=== PATIENT | male | born 1955 | race Caucasian/White ===

== ENCOUNTER 2016-12-13 13:25 | Inpatient (IN) | payer BC, OTHER ==
--- NOTE | 2016-12-13 14:44 | EDM.PDOC ---
[id number] Complaint: CAN'T KEEP ANYTHING DOWN Time Seen by Provider: 12/13/16 14:15 Source of Information: Reports: Patient, Family History Limitations: Reports: No limitations - History of Present Illness INITIAL COMMENTS - FREE TEXT/NARRATIVE: 61-year-old male with metastatic cancer who was over at the infusion Center receiving IV fluids and medications for nausea but wasn't responding well so they sent him over to the emergency room. He has persistent nausea, slight abdominal distention and feels weak. He also has decreased urinary output. No significant abdominal pain Onset: unknown/unsure (Over the past several days) Location: Reports: abdomen Severity: moderate Associated Symptoms: Reports: malaise, nausea/vomiting, weakness. Denies: cough - Related Data Allergies Allergy/AdvReac Type Severity Reaction Status Date / Time No Known Allergies Allergy Verified 12/13/16 14:14 Home Meds: Home Meds Acetaminophen/oxyCODONE [Percocet 325-5 MG] 1 tab PO Q4H PRN 12/13/16 [History] Dexamethasone 1 tab PO QID 12/13/16 [History] Docusate Sodium [Colace] 100 mg PO BID 12/13/16 [History] Dronabinol [Marinol] 2.5 mg PO BIDAC 12/13/16 [History] Omeprazole 1 tab PO BEDTIME 12/13/16 [History] Ondansetron [Zofran Odt] 1 tab PO Q8H PRN 12/13/16 [History] Prochlorperazine Maleate [Compazine] 1 tab PO Q6H PRN 12/13/16 [History] guaiFENesin 5 ml PO Q4H PRN 12/13/16 [History] guaiFENesin/Codeine Phosphate [Guaifenesin AC Cough Syrup] 5 ml PO TID PRN 12/13 [History] Past Medical History HEENT History: Reports: Hard of hearing, Impaired vision Respiratory History: Reports: Other (see below) Other Respiratory History: lung cancer Gastrointestinal History: Reports: PUD Oncologic (Cancer) History: Reports: Lung, Metastatic - Past Surgical History HEENT Surgical History: Reports: Tonsillectomy, Other (see below) Other HEENT Surgeries/Procedures: ear operation for hearing GI Surgical History: Reports: Other (see below) Other GI Surgeries/Procedures: perforated ulcers Social & Family History - Tobacco Use Smoking Status *Q: Former Smoker - Recreational Drug Use Recreational Drug Use: No ED ROS GENERAL - Review of Systems Review Of Systems: See Below Constitutional: Denies: fever, chills HEENT: Reports: No symptoms Respiratory: Denies: Shortness of Breath Cardiovascular: Denies: Chest pain GI/Abdominal: Reports: Nausea, Vomiting : Reports: other (Decreased urinary frequency) Skin: Reports: no symptoms Neurological: Reports: No Symptoms Psychiatric: Reports: No symptoms ED EXAM, GENERAL - Physical Exam Exam: See Below Exam Limited By: No limitations General Appearance: alert, no apparent distress (No distress but looks uncomfortable) Eye Exam: bilateral eye: EOMI Respiratory/Chest: no respiratory distress, lungs clear Cardiovascular: regular rate, rhythm GI/Abdominal: tender (Minimal tenderness to palpation but somewhat distended and firm), abnormal bowel sounds: (Decreased bowel sounds) Extremities: No: pedal edema Neurological: alert, oriented Psychiatric: normal affect, normal mood Skin Exam: Warm, Dry Course - Vital Signs Last Recorded V/S: Last Vital Signs Temp 97.8 F 12/14/16 01:33 Pulse 86 12/14/16 01:33 Resp 16 12/14/16 01:33 BP 115/86 12/14/16 01:33 Pulse Ox 96 12/14/16 01:33 - Orders/Labs/Meds Orders: Active Orders 24 hr Category Date Time Status Abdomen 2V AP Flat Upright [CR] Stat Exams 12/13/16 14:45 Taken Abdomen Pelvis wo Cont [CT] Stat Exams 12/13/16 17:17 Taken Medication Orders Albuterol (Proventil Neb Soln) 2.5 mg NEB Q4H PRN PRN Reason: Shortness Of Breath/wheezing Dexamethasone (Dexamethasone) 4 mg IVPUSH Q6H [facility] Last Admin: 12/14/16 01:23 Dose: 4 mg Admin: 12/13/16 21:14 Dose: 4 mg Enoxaparin Sodium (Lovenox) 40 mg SUBCUT DAILY [facility] Last Admin: 12/13/16 21:15 Dose: 40 mg Hydromorphone HCl (Dilaudid) 0.5 mg IVPUSH Q2H PRN PRN Reason: Pain Lactated Ringer's (Ringers, Lactated) 1,000 mls @ 125 mls/hr IV ASDIRECTED [facility] Last Admin: 12/13/16 19:45 Dose: 125 mls/hr Ondansetron HCl (Zofran) 4 mg IV Q4H PRN PRN Reason: Nausea/Vomiting Pantoprazole Sodium (Protonix Iv) 40 mg IVPUSH DAILY [facility] Last Admin: 12/13/16 21:11 Dose: 40 mg Phenol (Phenaseptic Liquid) 0 ml PO Q1H PRN PRN Reason: Sore Throat Sodium Chloride (Saline Flush) 10 ml FLUSH ASDIRECTED PRN PRN Reason: Keep Vein Open Labs: Laboratory Tests 12/13/16 12/13/16 Range/Units 14:45 14:45 WBC 15.2 H (4.5-11.0) K/uL RBC 5.51 (4.30-5.90) M/uL Hgb 13.9 (12.0-15.0) g/dL Hct 42.8 (40.0-54.0) % MCV 78 L (80-98) fL MCH 25 L (27-31) pg MCHC 33 (32-36) % Plt Count 335 (150-400) K/uL Neut % (Auto) 93 H (36-66) % Lymph % (Auto) 4 L (24-44) % [place] % (Auto) 3 (2-6) % Eos % (Auto) 0 L (2-4) % Baso % (Auto) 0 (0-1) % Sodium 136 L (140-148) mmol/L Potassium 4.0 (3.6-5.2) mmol/L Chloride 95 L (100-108) mmol/L Carbon Dioxide 31 (21-32) mmol/L Anion Gap 14.0 (5.0-14.0) mmol/L BUN 39 H (7-18) mg/dL Creatinine 1.4 H (0.8-1.3) mg/dL Est Cr Clr Drug Dosing 51.54 mL/min Estimated GFR (MDRD) 51 L (>60) Glucose 124 H (74-106) mg/dL Calcium 8.5 (8.5-10.1) mg/dL Total Bilirubin 0.8 (0.2-1.0) mg/dL AST 35 (15-37) U/L ALT 58 (12-78) U/L Alkaline Phosphatase 81 (46-116) U/L Total Protein 6.6 (6.4-8.2) g/dL Albumin 3.1 L (3.4-5.0) g/dL Globulin 3.5 (2.3-3.5) g/dL Albumin/Globulin Ratio 0.9 L (1.2-2.2) Meds: Medications Generic Name Dose Route Start Last Admin Trade Name Freq PRN Reason Stop Dose Admin Albuterol 2.5 mg 12/13/16 19:08 Proventil Neb Soln NEB Q4H PRN Shortness Of Breath/wheezing Dexamethasone 4 mg 12/13/16 19:08 12/14/16 01:23 Dexamethasone IVPUSH 4 mg Q6H [facility] Administration Enoxaparin Sodium 40 mg 12/13/16 19:08 12/13/16 21:15 Lovenox SUBCUT 40 mg DAILY [facility] Administration Hydromorphone HCl 0.5 mg 12/13/16 19:08 Dilaudid IVPUSH Q2H PRN Pain Lactated Ringer's 1,000 mls @ 125 mls/hr 12/13/16 19:08 12/13/16 19:45 Ringers, Lactated IV 125 mls/hr ASDIRECTED [facility] Administration Ondansetron HCl 4 mg 12/13/16 19:08 Zofran IV Q4H PRN Nausea/Vomiting Pantoprazole Sodium 40 mg 12/13/16 19:08 12/13/16 21:11 Protonix Iv IVPUSH 40 mg DAILY [facility] Administration Phenol 0 ml 12/13/16 20:09 Phenaseptic Liquid PO Q1H PRN Sore Throat Sodium Chloride 10 ml 12/13/16 19:08 Saline Flush FLUSH ASDIRECTED PRN Keep Vein Open - Re-Assessments/Exams Free Text/Narrative Re-Assessment/Exam: 12/13/16 15:44 A flat and upper abdominal x-ray was obtained which showed bowel obstruction. Hemoglobin was normal, white count 15.2. Discussed with the patient that he needs an NG tube and hospitalization and the family requested a [facility] so [place] was contacted. 12/13/16 17:18 [facility] does not except inpatient patients other than psychiatric and rehabilitation. [facility] was consulted and they are full and not accepting patients. The patient preferred to be admitted here rather than go all the way down to [facility]. I discussed his case with Dr. Hayes, and abdominal CT without contrast was ordered and an NG tube will be placed when he returns from CT. 12/13/16 18:28 CT confirmed a small bowel obstruction with a transition point in the right lower quadrant. There is evidence of metastatic disease in the abdomen which may be involved in the obstruction. The NG was placed without difficulty and the hospitalist was consulted for admission. Departure - Departure Time of Disposition: 19:12 Disposition: Admitted As Inpatient 65 Condition: poor Clinical Impression: Vomiting, Small bowel obstruction, Metastatic cancer to brain - My Orders Last 24 Hours: My Active Orders 12/13/16 14:45 Abdomen 2V AP Flat Upright [CR] Stat 12/13/16 17:17 Abdomen Pelvis wo Cont [CT] Stat - Assessment/Plan Last 24 Hours: My Active Orders 12/13/16 14:45 Abdomen 2V AP Flat Upright [CR] Stat 12/13/16 17:17 Abdomen Pelvis wo Cont [CT] Stat
--- NOTE | 2016-12-13 19:04 | PCM.HP ---
H&P History of Present Illness - General Date of Service: 12/13/16 Admit Problem/Dx: Admission Diagnosis/Problem Admission Diagnosis/Problem Small bowel obstruction Source of Information: Patient, Family, Provider, RN notes reviewed History Limitations: Reports: No limitations - History of Present Illness Initial Comments - Free Text/Narative: This patient is a 61-year-old gentleman was admitted through the emergency department for management of a mechanical bowel obstruction. 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 He has received radiation to his brain as well as recent chemotherapy. Over the last 3-4 days his developed persistent nausea and vomiting with negligible oral intake. He was seen and evaluated in the emergency department today, x-ray of the abdomen shows evidence of a bowel obstruction. CT scan of the abdomen has been obtained but formal report is pending at this time. - Related Data Allergies/Adverse Reactions: Allergies Allergy/AdvReac Type Severity Reaction Status Date / Time No Known Allergies Allergy Verified 12/13/16 14:14 Home Medications: Home Meds Acetaminophen/oxyCODONE [Percocet 325-5 MG] 1 tab PO Q4H PRN 12/13/16 [History] Dexamethasone 1 tab PO QID 12/13/16 [History] Docusate Sodium [Colace] 100 mg PO BID 12/13/16 [History] Dronabinol [Marinol] 2.5 mg PO BIDAC 12/13/16 [History] Omeprazole 1 tab PO BEDTIME 12/13/16 [History] Ondansetron [Zofran Odt] 1 tab PO Q8H PRN 12/13/16 [History] Prochlorperazine Maleate [Compazine] 1 tab PO Q6H PRN 12/13/16 [History] guaiFENesin 5 ml PO Q4H PRN 12/13/16 [History] guaiFENesin/Codeine Phosphate [Guaifenesin AC Cough Syrup] 5 ml PO TID PRN 12/13 [History] Past Medical History HEENT History: Reports: Hard of hearing, Impaired vision Respiratory History: Reports: Other (see below) Other Respiratory History: lung cancer Gastrointestinal History: Reports: PUD Oncologic (Cancer) History: Reports: Lung, Metastatic - Past Surgical History HEENT Surgical History: Reports: Tonsillectomy, Other (see below) Other HEENT Surgeries/Procedures: ear operation for hearing GI Surgical History: Reports: Other (see below) Other GI Surgeries/Procedures: perforated ulcers Social & Family History - Tobacco Use Smoking Status *Q: Former Smoker - Recreational Drug Use Recreational Drug Use: No H&P Review of Systems - Review of Systems: Review Of Systems: See Below General: Reports: weakness, decreased appetite. Denies: fever, chills, night sweats, diaphoresis HEENT: Reports: no symptoms Pulmonary: Reports: No Symptoms Cardiovascular: Reports: no symptoms Gastrointestinal: Reports: Abdominal pain, Distension, Nausea, Vomiting. Denies : Black stool, Bloody stool, Constipation, Diarrhea, Difficulty swallowing Genitourinary: Reports: no symptoms Musculoskeletal: Reports: no symptoms Skin: Reports: no symptoms Psychiatric: Reports: no symptoms Neurological: Reports: No Symptoms Hematologic/Lymphatic: Reports: no symptoms Immunologic: Reports: no symptoms Exam - Exam Exam: See Below - Vital Signs Vital Signs: Last Vital Signs Temp 97.9 F 12/13/16 16:09 Pulse 93 12/13/16 16:09 Resp 16 12/13/16 16:09 BP 132/88 12/13/16 16:09 Pulse Ox 95 12/13/16 16:09 Weight: 146 lb 13.246 oz - Exam Quality Assessment: DVT prophylaxis General: alert, oriented, cooperative, mild distress HEENT: Conjunctiva clear, Nares patent, Normal nasal septum, Posterior pharynx clear, Pupils equal, Pupils reactive. No: Hearing intact, Mucosa moist & pink Neck: supple, trachea midline, +2 carotid pulse wo bruit Lungs: Clear to auscultation, Normal respiratory effort, Decreased breath sounds Cardiovascular: regular rate, regular rhythm, normal S1, normal S2. No: irregular rhythm, bradycardia, tachycardia, systolic murmur, diastolic murmur Abdomen: soft, distention, tenderness, hypoactive bowel sounds. No: guarding, rigidity, rebound Back Exam: normal inspection, full range of motion, NT Extremities: 3, normal inspection, 10 Skin: warm, dry, intact Neurological: cranial nerves intact, strength equal bilateral, normal speech, normal tone, sensation intact. No: focal deficit Neuro Extensive - Mental Status: alert, oriented x3, normal mood/affect, normal cognition, memory intact - Patient Data Lab Results last 24 hrs: Laboratory Results - last 24 hr 12/13/16 12/13/16 Range/Units 14:45 14:45 WBC 15.2 H (4.5-11.0) K/uL RBC 5.51 (4.30-5.90) M/uL Hgb 13.9 (12.0-15.0) g/dL Hct 42.8 (40.0-54.0) % MCV 78 L (80-98) fL MCH 25 L (27-31) pg MCHC 33 (32-36) % Plt Count 335 (150-400) K/uL Neut % (Auto) 93 H (36-66) % Lymph % (Auto) 4 L (24-44) % [place] % (Auto) 3 (2-6) % Eos % (Auto) 0 L (2-4) % Baso % (Auto) 0 (0-1) % Sodium 136 L (140-148) mmol/L Potassium 4.0 (3.6-5.2) mmol/L Chloride 95 L (100-108) mmol/L Carbon Dioxide 31 (21-32) mmol/L Anion Gap 14.0 (5.0-14.0) mmol/L BUN 39 H (7-18) mg/dL Creatinine 1.4 H (0.8-1.3) mg/dL Est Cr Clr Drug Dosing 51.54 mL/min Estimated GFR (MDRD) 51 L (>60) Glucose 124 H (74-106) mg/dL Calcium 8.5 (8.5-10.1) mg/dL Total Bilirubin 0.8 (0.2-1.0) mg/dL AST 35 (15-37) U/L ALT 58 (12-78) U/L Alkaline Phosphatase 81 (46-116) U/L Total Protein 6.6 (6.4-8.2) g/dL Albumin 3.1 L (3.4-5.0) g/dL Globulin 3.5 (2.3-3.5) g/dL Albumin/Globulin Ratio 0.9 L (1.2-2.2) Result Diagrams: 12/13/16 14:45 12/13/16 14:45 *Q Meaningful Use (ADM) - VTE *Q VTE Criteria *Q: - VTE Risk Assess *Q Each Risk Factor Represents 1 Point: Abnormal Pulmonary Function (COPD) Total Score 1 Point Risk Factors: 1 Each Risk Factor Represents 2 Points: Age 60 - 74 Years Total Score 2 Point Risk Factors: 2 Each Risk Factor Represents 3 Points: Present Cancer or Chemotherapy Total Score 3 Point Risk Factors: 3 Each Risk Factor Represents 5 Points: None Total Score 5 Point Risk Factors: 0 Venous Thromboembolism Risk Factor Score *Q: 6 - Stroke *Q Stroke Criteria *Q: - AMI *Q AMI Criteria *Q: Problem List Initiated/Reviewed/Updated: Yes Orders Last 24hrs: Active Orders 24 hr Category Date Time Status Patient Status Manage Transfer [TRANSFER] Routine ADT 12/13/16 18:48 Active Gastrointestinal Tube Mgmt [RC] ASDIRECTED Care 12/13/16 17:46 Active Abdomen 2V AP Flat Upright [CR] Stat Exams 12/13/16 14:45 Taken Abdomen Pelvis wo Cont [CT] Stat Exams 12/13/16 17:17 Taken NG [Nasogastric Orogastric Tube Insertion] [OM.PC] Oth 12/13/16 17:45 Ordered Routine Resuscitation Status Routine Resus Stat 12/13/16 18:53 Ordered Assessment/Plan Comment:: ASSESSMENT AND PLAN MECHANICAL BOWEL OBSTRUCTION-onset of symptoms over the past 3-4 days. X-ray shows evidence of bowel obstruction, CT scan results are pending. History of perforated ulcer requiring surgical intervention 5 years ago. -N.p.o. -IV fluids for hydration -NG tube to low intermittent suction -Abdominal flat plate and upright in a.m. -consult Dr. Armenta in a.m. for surgical followup METASTATIC SQUAMOUS CELL CARCINOMA-specific origin of the malignancy unknown although presumed to be lung. He has receiving brain radiation for known metastatic disease to the brain, currently receiving chemotherapy. -Decadron IV to replace oral medication PROBABLE COPD-no formal diagnosis, examination is consistent with this. He has an at least 80 pack year smoking history. -Supplemental oxygen as needed -Albuterol nebs as needed MAINTENANCE ISSUES -DVT prophylaxis; Lovenox 40 mg subcutaneous daily -GI prophylaxis; Protonix 40 mg IV daily -Burks catheter; not indicated -Nutrition; n.p.o. -Nicotine dependence; not required CODE STATUS-FULL CODE ADMISSION STATUS-patient will be admitted to inpatient status, expect at least a 2 night hospital stay for evaluation and management of problems as outlined above. At the time of this admission I do not reasonably expected evaluation and management of this problem will require more than a 96 hour hospital stay. DISPOSITION-anticipate discharge to home after the hospital stay. PRIMARY CARE PROVIDER-[facility]
[2016-12-13] MEDS ORDERED: HYDROmorphone 0.5 MG/0.5 ML Syringe IVPUSH PRN (19:08)
[2016-12-13] MEDS ORDERED: Ondansetron 4 MG/2 ML SDV IV PRN (19:08)
[2016-12-13] MEDS ORDERED: Albuterol 0.083% 2.5 MG/3 ML Neb Soln NEB PRN (19:08)
[2016-12-13] MEDS ORDERED: Sodium Chloride 0.9% 10 ML Syringe FLUSH PRN (19:08)
[2016-12-13] MEDS: Lactated Ringers 1,000 ML IV SCH (19:45)
[2016-12-13] MEDS ORDERED: Phenol/Sodium Phenolate Mouthwash 180 ML Bottle PO PRN (20:09)
[2016-12-13] MEDS: Pantoprazole 40 MG Vial IVPUSH SCH (21:11)
[2016-12-13] MEDS: Dexamethasone 4 MG/ML SDV IVPUSH SCH (21:14)
[2016-12-13] MEDS: Enoxaparin 40 MG/0.4 ML Syringe SUBCUT SCH (21:15)
[2016-12-14] MEDS: Dexamethasone 4 MG/ML SDV IVPUSH SCH ×4 (01:23→20:53)
[2016-12-14] MEDS: Pantoprazole 40 MG Vial IVPUSH SCH (09:15)
[2016-12-14] MEDS ORDERED: Lactated Ringers 1,000 ML IV SCH (09:15)
[2016-12-14] MEDS: Enoxaparin 40 MG/0.4 ML Syringe SUBCUT SCH (09:15)
[2016-12-14] MEDS ORDERED: Naloxone 0.4 MG/ML SDV IV PRN (14:07)
--- NOTE | 2016-12-14 15:48 | PCM.PN ---
- General Info Date of Service: 12/14/16 Functional Status: Reports: pain controlled, urinating - Review of Systems General: Denies: Fever, Chills Pulmonary: Reports: no symptoms Cardiovascular: Reports: No Symptoms Gastrointestinal: Reports: Flatus. Denies: Abdominal pain, Difficulty swallowing, Nausea, Vomiting Systems Review Comment:: This patient has been stable since admission, denies abdominal pain, nausea or vomiting. Vital signs have been stable and he has remained afebrile. He is passing a small amount of gas but has not had a bowel movement, NG output remains fairly high. He has been seen and evaluated by Dr. Armenta. - Patient Data Vitals - most recent: Last Vital Signs Temp 97.5 F 12/14/16 11:58 Pulse 81 12/14/16 11:58 Resp 18 12/14/16 11:58 BP 123/83 12/14/16 11:58 Pulse Ox 95 12/14/16 11:58 Weight - most recent: 146 lb 13.246 oz I&O - last 24 hours: Intake & Output 12/14/16 12/14/16 12/14/16 06:59 14:59 22:59 Intake Total 1201 Output Total 200 Balance 1001 Lab Results last 24 hrs: Laboratory Results - last 24 hr 12/14/16 12/14/16 Range/Units 05:56 05:56 WBC 13.9 H (4.5-11.0) K/uL RBC 4.71 (4.30-5.90) M/uL Hgb 11.7 L D (12.0-15.0) g/dL Hct 37.2 L (40.0-54.0) % MCV 79 L (80-98) fL MCH 25 L (27-31) pg MCHC 32 (32-36) % Plt Count 268 (150-400) K/uL Neut % (Auto) 93 H (36-66) % Lymph % (Auto) 4 L (24-44) % [place] % (Auto) 4 (2-6) % Eos % (Auto) 0 L (2-4) % Baso % (Auto) 0 (0-1) % Sodium 139 L (140-148) mmol/L Potassium 3.9 (3.6-5.2) mmol/L Chloride 99 L (100-108) mmol/L Carbon Dioxide 31 (21-32) mmol/L Anion Gap 12.9 (5.0-14.0) mmol/L BUN 38 H (7-18) mg/dL Creatinine 1.3 (0.8-1.3) mg/dL Est Cr Clr Drug Dosing 55.50 mL/min Estimated GFR (MDRD) 56 L (>60) Glucose 106 (74-106) mg/dL Calcium 7.5 L (8.5-10.1) mg/dL Magnesium 2.2 (1.8-2.4) mg/dL Med Orders - Current: Current Medications Albuterol (Proventil Neb Soln) 2.5 mg NEB Q4H PRN PRN Reason: Shortness Of Breath/wheezing Dexamethasone (Dexamethasone) 4 mg IVPUSH Q6H [facility] Last Admin: 12/14/16 14:51 Dose: 4 mg Enoxaparin Sodium (Lovenox) 40 mg SUBCUT DAILY [facility] Last Admin: 12/14/16 09:15 Dose: 40 mg Hydromorphone HCl (Dilaudid [employer] 15 Mg In Ns 30 Ml) 0 mg IV ASDIRECTED PRN; Protocol 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 Lactated Ringer's (Ringers, Lactated) 1,000 mls @ 125 mls/hr IV ASDIRECTED [facility] Last Admin: 12/13/16 19:45 Dose: 125 mls/hr Naloxone HCl (Narcan) 0.1 mg IV ASDIRECTED PRN PRN Reason: decreased respiratory rate Ondansetron HCl (Zofran) 4 mg IV Q4H PRN PRN Reason: Nausea/Vomiting Pantoprazole Sodium (Protonix Iv) 40 mg IVPUSH DAILY [facility] Last Admin: 12/14/16 09:15 Dose: 40 mg Phenol (Phenaseptic Liquid) 0 ml PO Q1H PRN PRN Reason: Sore Throat Sodium Chloride (Saline Flush) 10 ml FLUSH ASDIRECTED PRN PRN Reason: Keep Vein Open Discontinued Medications Lactated Ringer's (Ringers, Lactated) 1,000 mls @ 333 mls/hr IV ASDIRECTED [facility] Stop: 12/14/16 12:16 Last Admin: 12/14/16 09:25 Dose: 333 mls/hr - Exam Quality Assessment: DVT prophylaxis General: alert, oriented, cooperative, no acute distress Lungs: Clear to auscultation, Normal respiratory effort Cardiovascular: Regular Rate, Regular Rhythm, No Murmurs Abdomen: soft, no distension, abnormal bowel sounds. No: rigidity, rebound, guarding, tenderness Extremities: no edema Skin: warm, dry, intact - Problem List Review Problem List Initiated/Reviewed/Updated: Yes - My Orders Last 24 Hours: My Active Orders 12/13/16 18:53 Resuscitation Status Routine 12/13/16 19:08 Patient Status [ADT] Routine Gastrointestinal Tube Mgmt [RC] ASDIRECTED Intake and Output [RC] QSHIFT Notify Provider Consults [RC] ASDIRECTED Notify Provider Vital Signs [RC] ASDIRECTED Oxygen Therapy [RC] PRN RT Aerosol Therapy [RC] ASDIRECTED Up With Assistance [RC] ASDIRECTED VTE/DVT Education [RC] Per Unit Routine Vital Signs [RC] Q4H Consult to Physician [CONS] Routine Albuterol [Proventil Neb Soln] 2.5 mg NEB Q4H PRN Dexamethasone 4 mg IVPUSH Q6H Enoxaparin [Lovenox] 40 mg SUBCUT DAILY Lactated Ringers [Ringers, Lactated] 1,000 ml IV ASDIRECTED Ondansetron [Zofran] 4 mg IV Q4H PRN Pantoprazole [Protonix IV] 40 mg IVPUSH DAILY Sodium Chloride 0.9% [Saline Flush] 10 ml FLUSH ASDIRECTED PRN Peripheral IV Insertion Adult [OM.PC] Routine 12/13/16 20:09 Phenol/Sodium Phenolate [Phenaseptic Liquid] 0 ml PO Q1H PRN 12/13/16 Dinner Nothing per Oral Now Diet [DIET] 12/14/16 05:00 Abdomen 2V AP Flat Upright [CR] Routine - Plan Plan:: ASSESSMENT AND PLAN MECHANICAL BOWEL OBSTRUCTION-onset of symptoms over the past 3-4 days. X-ray shows evidence of bowel obstruction. History of perforated ulcer requiring surgical intervention 5 years ago. Stable and asymptomatic since admission with current management. -N.p.o. -IV fluids for hydration -NG tube to low intermittent suction -Abdominal flat plate and upright in a.m. -Surgical followup per Dr. 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 He has receiving brain radiation for known metastatic disease to the brain, currently receiving chemotherapy. -Decadron IV to replace oral medication PROBABLE COPD-no formal diagnosis, examination is consistent with this. He has an at least 80 pack year smoking history. -Supplemental oxygen as needed -Albuterol nebs as needed MAINTENANCE ISSUES -DVT prophylaxis; Lovenox 40 mg subcutaneous daily -GI prophylaxis; Protonix 40 mg IV daily -Burks catheter; not indicated -Nutrition; n.p.o. -Nicotine dependence; not required CODE STATUS-FULL CODE ADMISSION STATUS-patient will be admitted to inpatient status, expect at least a 2 night hospital stay for evaluation and management of problems as outlined above. At the time of this admission I do not reasonably expected evaluation and management of this problem will require more than a 96 hour hospital stay. DISPOSITION-anticipate discharge to home after the hospital stay. PRIMARY CARE PROVIDER-[facility]
[2016-12-14] MEDS: Lactated Ringers 1,000 ML IV SCH (23:35)
[2016-12-15] MEDS: Dexamethasone 4 MG/ML SDV IVPUSH SCH ×4 (02:01→19:53)
[2016-12-15] MEDS: Lactated Ringers 1,000 ML IV SCH (07:46)
[2016-12-15] MEDS ORDERED: Midazolam 1 MG/ML 2 ML SDV ONE (08:51)
[2016-12-15] MEDS ORDERED: fentaNYL 250 MCG/5 ML SDV ONE (08:51)
[2016-12-15] MEDS: HYDROmorphone/Normal Saline 15 MG/30 ML PCA IV PRN (08:52)
[2016-12-15] MEDS ORDERED: Succinylcholine/Normal Saline 200 MG/10 ML Syringe ONE ×2 (08:52→11:09)
[2016-12-15] MEDS ORDERED: Rocuronium 50 MG/5 ML Vial ONE (08:52)
[2016-12-15] MEDS ORDERED: Ondansetron 4 MG/2 ML SDV ONE (08:52)
[2016-12-15] MEDS ORDERED: Neostigmine Methylsulfate 1 MG/ML 5 ML Syringe ONE (08:52)
[2016-12-15] MEDS ORDERED: Propofol 200 MG/20 ML SDV ONE (08:52)
[2016-12-15] MEDS ORDERED: Dexamethasone 4 MG/ML SDV ONE (08:52)
[2016-12-15] MEDS ORDERED: methylPREDNISolone Sodium Succinate 125 MG/2 ML SDV IVPUSH ONE (09:00)
[2016-12-15] MEDS ORDERED: cefOXitin 2 GM in Sodium Chloride 0.9% 50 ML IV ONE (09:00)
[2016-12-15] MEDS ORDERED: Lactated Ringers 1,000 ML ONE (09:14)
[2016-12-15] MEDS ORDERED: Ketamine 500 MG/5 ML MDV ONE (10:09)
[2016-12-15] MEDS: fentaNYL 25 MCG/HR Transdermal Patch TRDERM SCH (10:33)
[2016-12-15] MEDS ORDERED: Meropenem 500 MG SDV ONE (10:50)
[2016-12-15] MEDS ORDERED: fentaNYL 100 MCG/2 ML SDV ONE (11:07)
[2016-12-15] MEDS ORDERED: fentaNYL 100 MCG/2 ML SDV IVPUSH ONE (11:58)
[2016-12-15] MEDS ORDERED: hydrOXYzine HCl 50 MG/ML SDV IM ONE (12:17)
[2016-12-15] MEDS: Pantoprazole 40 MG Vial IVPUSH SCH (14:28)
[2016-12-15] MEDS: Enoxaparin 40 MG/0.4 ML Syringe SUBCUT SCH (14:29)
[2016-12-15] MEDS ORDERED: Dextrose 5%-Lactated Ringers 1,000 ML IV SCH (14:45)
--- NOTE | 2016-12-15 15:04 | PCM.PN ---
- General Info Date of Service: 12/15/16 Functional Status: Reports: pain controlled - Review of Systems General: Reports: Weakness. Denies: Fever, Chills Pulmonary: Reports: no symptoms Cardiovascular: Reports: No Symptoms Gastrointestinal: Reports: Abdominal pain. Denies: Nausea, Vomiting Systems Review Comment:: This patient has been stable following exploratory laparotomy done earlier today by Dr. Armenta. Patient was found to have tumor mass involved in the bowel obstruction. Vital signs have been stable and he has remained afebrile. - Patient Data Vitals - most recent: Last Vital Signs Temp 96.9 F 12/15/16 13:20 Pulse 86 12/15/16 14:42 Resp 16 12/15/16 14:42 BP 136/88 12/15/16 14:42 Pulse Ox 92 L 12/15/16 14:42 Weight - most recent: 146 lb 13.246 oz I&O - last 24 hours: Intake & Output 12/15/16 12/15/16 12/15/16 06:59 14:59 22:59 Intake Total 1383 Output Total 450 480 Balance 933 -480 Lab Results last 24 hrs: Laboratory Results - last 24 hr 12/15/16 12/15/16 Range/Units 04:00 04:00 WBC 16.9 H (4.5-11.0) K/uL RBC 4.59 (4.30-5.90) M/uL Hgb 11.4 L (12.0-15.0) g/dL Hct 36.7 L (40.0-54.0) % MCV 80 (80-98) fL MCH 25 L (27-31) pg MCHC 31 L (32-36) % Plt Count 237 (150-400) K/uL Sodium 139 L (140-148) mmol/L Potassium 3.9 (3.6-5.2) mmol/L Chloride 103 (100-108) mmol/L Carbon Dioxide 29 (21-32) mmol/L Anion Gap 10.9 (5.0-14.0) mmol/L BUN 32 H (7-18) mg/dL Creatinine 0.9 (0.8-1.3) mg/dL Est Cr Clr Drug Dosing 80.17 mL/min Estimated GFR (MDRD) > 60 (>60) Glucose 87 (74-106) mg/dL Calcium 7.3 L (8.5-10.1) mg/dL Phosphorus 3.0 (2.5-4.9) mg/dL Magnesium 2.3 (1.8-2.4) mg/dL Total Bilirubin 0.4 (0.2-1.0) mg/dL AST 21 (15-37) U/L ALT 41 (12-78) U/L Alkaline Phosphatase 56 (46-116) U/L Total Protein 5.0 L (6.4-8.2) g/dL Albumin 2.3 L (3.4-5.0) g/dL Globulin 2.7 (2.3-3.5) g/dL Albumin/Globulin Ratio 0.9 L (1.2-2.2) Med Orders - Current: Current Medications Albuterol/Ipratropium (Duoneb 3.0-0.5 Mg/3 Ml) 3 ml INH QIDRT FANG Albuterol/Ipratropium (Duoneb 3.0-0.5 Mg/3 Ml) 3 ml INH ASDIRECTED PRN PRN Reason: RESP DISTRESS Dexamethasone (Dexamethasone) 4 mg IVPUSH Q6H [facility] Enoxaparin Sodium (Lovenox) 40 mg SUBCUT DAILY [facility] Fentanyl (Duragesic) 25 mcg TRDERM Q72H [facility] Last Admin: 12/15/16 10:33 Dose: 25 mcg Hydromorphone HCl (Dilaudid Chemical Pumper 15 Mg In Ns 30 Ml) 0 mg IV ASDIRECTED PRN; Protocol PRN Reason: [employer] Last Admin: 12/15/16 08:52 Dose: 15 mg Dextrose/Lactated Ringer's (Dextrose 5%-Lactated Ringers) 1,000 mls @ 200 mls/ hr IV ASDIRECTED [facility] Cefoxitin Sodium 2 gm/ Sodium (Chloride) 50 mls @ 100 mls/hr IV Q6H [facility] Stop: 12/17/16 12:29 Naloxone HCl (Narcan) 0.1 mg IV ASDIRECTED PRN PRN Reason: decreased respiratory rate Ondansetron HCl (Zofran) 4 mg IV Q4H PRN PRN Reason: Nausea/Vomiting Pantoprazole Sodium (Protonix Iv) 40 mg IVPUSH DAILY [facility] Last Admin: 12/15/16 14:28 Dose: 40 mg Phenol (Phenaseptic Liquid) 0 ml PO Q1H PRN PRN Reason: Sore Throat Sodium Chloride (Saline Flush) 10 ml FLUSH ASDIRECTED PRN PRN Reason: Keep Vein Open Discontinued Medications Dexamethasone (Dexamethasone) 4 mg IVPUSH Q6H [facility] Last Admin: 12/15/16 14:29 Dose: 4 mg Dexamethasone (Dexamethasone) Confirm Administered Dose 4 mg .ROUTE .STK-MED ONE Stop: 12/15/16 08:53 Enoxaparin Sodium (Lovenox) 40 mg SUBCUT DAILY [facility] Last Admin: 12/15/16 14:29 Dose: 40 mg Fentanyl (Sublimaze) Confirm Administered Dose 250 mcg .ROUTE .STK-MED ONE Stop: 12/15/16 08:52 Fentanyl (Sublimaze) Confirm Administered Dose 100 mcg .ROUTE .STK-MED ONE Stop: 12/15/16 11:08 Fentanyl (Sublimaze) 100 mcg IVPUSH ONETIME ONE Stop: 12/15/16 11:59 Last Admin: 12/15/16 12:08 Dose: 100 mcg Glycopyrrolate () Confirm Administered Dose 1 mg .ROUTE .STK-MED ONE Stop: 12/15/16 08:53 Hydroxyzine HCl (Vistaril) 50 mg IM ONETIME ONE Stop: 12/15/16 12:18 Last Admin: 12/15/16 12:24 Dose: 50 mg Lactated Ringer's (Ringers, Lactated) 1,000 mls @ 125 mls/hr [facility] Last Admin: 12/15/16 07:46 Dose: 125 mls/hr Lactated Ringer's (Ringers, Lactated) 1,000 mls @ 333 mls/hr [facility] Stop: 12/14/16 12:16 Last Admin: 12/14/16 09:25 Dose: 333 mls/hr Cefoxitin Sodium 2 gm/ Sodium (Chloride) 50 mls @ 100 mls/hr IV ONETIME ONE Stop: 12/15/16 09:29 Last Admin: 12/15/16 08:53 Dose: 100 mls/hr Lactated Ringer's (Ringers, Lactated) Confirm Administered Dose 1,000 mls @ as directed .ROUTE .STK-MED ONE Stop: 12/15/16 09:15 Ketamine HCl (Ketalar) Confirm Administered Dose 500 mg .ROUTE .STK-MED ONE Stop: 12/15/16 10:10 Meropenem (Merrem) Confirm Administered Dose 500 mg .ROUTE .STK-MED ONE Stop: 12/15/16 10:51 Methylprednisolone Sodium Succinate (Solu-Medrol) 60 mg IVPUSH ONETIME ONE Stop: 12/15/16 09:01 Last Admin: 12/15/16 08:51 Dose: 60 mg Midazolam HCl (Versed 1 Mg/Ml) Confirm Administered Dose 2 mg .ROUTE .STK-MED ONE Stop: 12/15/16 08:52 Neostigmine Methylsulfate (Neostigmine) Confirm Administered Dose 5 mg .ROUTE .STK-MED ONE Stop: 12/15/16 08:53 Ondansetron HCl (Zofran) Confirm Administered Dose 4 mg .ROUTE .STK-MED ONE Stop: 12/15/16 08:53 Propofol (Diprivan 20 Ml) Confirm Administered Dose 200 mg .ROUTE .STK-MED ONE Stop: 12/15/16 08:53 Rocuronium [place] (Zemuron) Confirm Administered Dose 50 mg .ROUTE .STK-MED ONE Stop: 12/15/16 08:53 Succinylcholine Chloride (Succinylcholine In Ns Pf) Confirm Administered Dose 200 mg .ROUTE .STK-MED ONE Stop: 12/15/16 08:53 Succinylcholine Chloride (Succinylcholine In Ns Pf) Confirm Administered Dose 200 mg .ROUTE .STK-MED ONE Stop: 12/15/16 11:10 - Exam General: sedated Lungs: Clear to auscultation, Normal respiratory effort Cardiovascular: Regular Rate, Regular Rhythm, No Murmurs - Problem List Review Problem List Initiated/Reviewed/Updated: Yes - My Orders Last 24 Hours: My Active Orders 12/15/16 18:00 Intake and Output [RC] QSHIFT 12/15/16 20:00 Dexamethasone 4 mg IVPUSH Q6H 12/16/16 09:00 Enoxaparin [Lovenox] 40 mg SUBCUT DAILY - Plan Plan:: ASSESSMENT AND PLAN MECHANICAL BOWEL OBSTRUCTION-status post exploratory laparotomy by Dr. Armenta -Postoperative care per Dr. 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 He has receiving brain radiation for known metastatic disease to the brain, currently receiving chemotherapy. -Decadron IV to replace oral medication -Resume oral Decadron when he is started on a diet PROBABLE COPD-no formal diagnosis, examination is consistent with this. He has an at least 80 pack year smoking history. -Supplemental oxygen as needed -Albuterol nebs as needed MAINTENANCE ISSUES -DVT prophylaxis; Lovenox 40 mg subcutaneous daily -GI prophylaxis; Protonix 40 mg IV daily -Burks catheter; not indicated -Nutrition; n.p.o. -Nicotine dependence; not required CODE STATUS-FULL CODE ADMISSION STATUS-patient will be admitted to inpatient status, expect at least a 2 night hospital stay for evaluation and management of problems as outlined above. At the time of this admission I do not reasonably expected evaluation and management of this problem will require more than a 96 hour hospital stay. DISPOSITION-anticipate discharge to home after the hospital stay. PRIMARY CARE PROVIDER-[facility] Hospitalist service will sign off on the patient at this time, if we can be of further assistance in medical management during his hospital stay please feel free to reconsult.
[2016-12-15] MEDS: Albuterol/Ipratropium 3.0-0.5 MG/3 ML Neb Soln INH SCH ×2 (16:43→21:28)
[2016-12-15] MEDS: cefOXitin 2 GM in Sodium Chloride 0.9% 50 ML IV SCH (18:20)
[2016-12-15] MEDS: Dextrose 5%-Lactated Ringers 1,000 ML IV SCH (19:50)
[2016-12-15] MEDS: Lactated Ringers 500 ML IV SCH ×2 (20:15→23:14)
[2016-12-15] MEDS ORDERED: Lactated Ringers 500 ML IV ONE (23:03)
[2016-12-16] MEDS: cefOXitin 2 GM in Sodium Chloride 0.9% 50 ML IV SCH ×5 (00:19→23:57)
[2016-12-16] MEDS: Dextrose 5%-Lactated Ringers 1,000 ML IV SCH ×4 (00:20→23:57)
[2016-12-16] MEDS ORDERED: Lactated Ringers 500 ML IV ONE ×3 (02:03→14:30)
[2016-12-16] MEDS: Dexamethasone 4 MG/ML SDV IVPUSH SCH ×4 (02:13→21:20)
[2016-12-16] MEDS: VERIFY FENT PATCH TOP SCH ×2 (09:12→21:21)
--- NOTE | 2016-12-16 09:18 | CR ---
Abdomen 2V AP Flat Upright HISTORY: Pain, bowel obstruction. COMPARISON: CT scan 2012. FINDINGS: Multiple air-fluid levels and dilated small bowel loops compatible with distal small bowel obstructive process. No free air seen.
--- NOTE | 2016-12-16 10:19 | CR ---
Abdomen 2V AP Flat Upright HISTORY: Follow up small bowel obstruction. COMPARISON: 12/13/2016. FINDINGS: NG tube is now been placed within the stomach. There is been some slight decompression of the dilated loops of small bowel in the upper abdomen. Findings consistent with distal small bowel o bstructive process.
--- NOTE | 2016-12-16 10:24 | CR ---
Abdomen 2V AP Flat Upright HISTORY: Bowel obstruction. COMPARISON: 12/14/2016. FINDINGS: Prior placement of NG tube. Persistent dilated loops of small bowel with air-fluid levels compatible with mid to distal small bowel obstructive process. No free air seen.
[2016-12-16] MEDS: Potassium Phosphates 15 MMOLE in Sodium Chloride 0.9% 250 ML IV SCH ×2 (10:53→13:10)
[2016-12-16] MEDS: Pantoprazole 40 MG Vial IVPUSH SCH (13:09)
[2016-12-16] MEDS: Enoxaparin 40 MG/0.4 ML Syringe SUBCUT SCH (13:09)
--- NOTE | 2016-12-16 13:14 | PN ---
DATE OF SERVICE: 12/15/2016 The patient is complaining of some mild discomfort. He has been afebrile with stable vital signs. NG tube output has been moderate. Abdomen is mildly distended. Abdominal x-ray shows actually increased in size of the small bowel loops. He is getting some air into the large bowel. Given this significant likelihood that there is a malignant obstruction due to metastatic lung disease into the peritoneal cavity, I think better part of eval will be to proceed with a laparotomy at this point with release of bowel obstruction with bowel resection and/or lysis of adhesions as indicated along with resection of any masses that might be causing the problem. Potential risks of the procedure were reviewed with the patient. He wishes to proceed. The surgery will be undertaken later this morning. Richie Armenta MD /[id number]
[2016-12-16] MEDS: Albuterol/Ipratropium 3.0-0.5 MG/3 ML Neb Soln INH SCH ×3 (14:17→21:20)
[2016-12-16] MEDS ORDERED: Meclizine 25 MG Tab PO PRN (14:29)
--- NOTE | 2016-12-16 14:41 | CONS ---
DATE OF SERVICE: 12/14/2016 REFERRING PHYSICIAN: CONSULTING PHYSICIAN: Richie Armenta MD A 61-year-old male with metastatic squamous cell carcinoma, apparently from lung primary. He had recently treated brain metastases and he presented to the emergency room with a picture of small bowel obstruction. The CT scan shows a small bowel obstruction with the transition point in the right upper quadrant. Overnight, he has had a fair bit out of the NG-tube, appeared to be fairly comfortable. Abdominal examination this morning shows some distention, but not any evidence of peritonitis. The patient's abdominal surgery included a perforated duodenal ulcer treated about a year ago, but otherwise no operative procedures. CT scan does suggest possible mass in the area of the obstruction, indicative of possible intraperitoneal metastatic disease. Abdominal x-ray this morning continues to show quite a bit of distended small bowel with some air-fluid levels consistent with ongoing small bowel obstruction. There is some air in the right colon and rectum. IMPRESSION: Partial small bowel obstruction, either related to a previous perforated duodenal ulcer versus metastatic intraperitoneal disease. I think we will give this patient another day to get to open up, and if the picture looks like continued bowel obstruction tomorrow, we will proceed with laparotomy. If this does happen to be malignant obstruction, it is at this point probably fairly early, as not particularly like an ovarian cancer where there is widespread ovarian carcinomatosis. Given this, the likelihood fairly well could be needed to operate in terms of resecting the area of concern. Again, we will assess the patient clinically tomorrow and if we see anything after opening her up at that point follow the appropriate procedure with a laparotomy and release of the bowel. Richie Armenta MD /[id number]
--- NOTE | 2016-12-16 16:26 | PN ---
DATE OF SERVICE: 12/16/2016 SUBJECTIVE: Austin is postop day 1. He states his pain is controlled. He will be having a delayed primary closure tomorrow. Vital signs have been stable. REVIEW OF SYSTEMS: Remainder of review of systems negative for any pertinent positives and negatives with exception of low urinary output. His urinary output over the past 24 hours has been 529. OBJECTIVE: GENERAL: Austin Devine is a 61-year-old male. He is alert and orientated, color pale. VITAL SIGNS: TPR is 96.8, 84, 18. Blood pressure 118/79. HEENT: Negative. NECK: Supple. HEART: Regular rate and rhythm. LUNGS: Clear. ABDOMEN: Dressings dry and intact. Abdominal binder is on. EXTREMITIES: Without peripheral edema. ASSESSMENT: Exploratory laparotomy with small bowel resection, strictureplasty and mesh placement, and decompression of the bowel on 12/16/2016. PLAN: 1. Continue Burks catheter for inadequate urinary output to measure accurate hourly output. 2. Schedule, have consent signed for delayed primary closure, IV sedation, Richie Armenta MD, on 12/17/2016. 3. Discontinue NG. 4. Check CBC, CMP, Mag, phos in a.m. 5. Thirty millimoles of K-Phos IV today. 6. The patient to get incentive spirometer to use as directed. 7. Good pulmonary toilet encouraged. 8. We will evaluate p.r.n. or in a.m. Noa Gorman PA-C /[id number]
[2016-12-17] MEDS: Dexamethasone 4 MG/ML SDV IVPUSH SCH ×4 (01:59→19:51)
[2016-12-17] MEDS: cefOXitin 2 GM in Sodium Chloride 0.9% 50 ML IV SCH ×2 (05:05→12:13)
[2016-12-17] MEDS: Dextrose 5%-Lactated Ringers 1,000 ML IV SCH ×3 (05:12→20:47)
[2016-12-17] MEDS: Albuterol/Ipratropium 3.0-0.5 MG/3 ML Neb Soln INH PRN (05:47)
[2016-12-17] MEDS ORDERED: Meropenem 500 MG SDV ONE (06:47)
[2016-12-17] MEDS ORDERED: Bupivacaine 0.5% 50 ML MDV ONE (06:47)
[2016-12-17] MEDS ORDERED: Lidocaine 1% with EPINEPHrine 1:100,000 50 ML MDV ONE (06:47)
[2016-12-17] MEDS ORDERED: Propofol 200 MG/20 ML SDV ONE (07:09)
[2016-12-17] MEDS ORDERED: Midazolam 1 MG/ML 2 ML SDV ONE (07:09)
[2016-12-17] MEDS ORDERED: fentaNYL 100 MCG/2 ML SDV ONE (07:09)
[2016-12-17] MEDS: Albuterol/Ipratropium 3.0-0.5 MG/3 ML Neb Soln INH SCH ×4 (07:15→20:48)
[2016-12-17] MEDS: Enoxaparin 40 MG/0.4 ML Syringe SUBCUT SCH (08:52)
[2016-12-17] MEDS: Pantoprazole 40 MG Vial IVPUSH SCH (08:53)
[2016-12-17] MEDS: VERIFY FENT PATCH TOP SCH ×2 (09:00→21:57)
[2016-12-17] MEDS: Albumin 25% 12.5 GM in Premix Bag 1 BAG IV SCH ×4 (09:22→16:11)
[2016-12-17] MEDS: Magnesium Sulfate/Water 2 GM in Premix Bag 1 BAG IV SCH ×3 (09:53→21:59)
[2016-12-17] MEDS ORDERED: Potassium Phosphates 20 MMOLE in Sodium Chloride 0.9% 250 ML IV ONE (10:00)
--- NOTE | 2016-12-17 10:17 | PN ---
DATE OF SERVICE: 12/17/2016 SUBJECTIVE: Austin is n.p.o. He will be having delayed primary closure this morning. He has no concerns or questions. REVIEW OF SYSTEMS: Negative. OBJECTIVE: GENERAL: Austin is a 61-year-old male. He is alert and orientated. VITAL SIGNS: TPR 98.6, 113, 14. Blood pressure is 103/64. HEENT: Negative. NECK: Supple. HEART: Regular rate and rhythm. LUNGS: Clear. ABDOMEN: Dressings dry and intact. Abdominal binder is on. EXTREMITIES: Without peripheral edema. ASSESSMENT: 1. Exploratory laparotomy with small bowel resection, strictureplasty and mesh placement and decompression of small bowel on 12/15/2016. 2. Delayed primary closure on 12/17/2016. PLAN: Orders to be written post delayed primary closure. Noa Gorman PA-C /[id number]
[2016-12-17] MEDS: HYDROmorphone/Normal Saline 15 MG/30 ML PCA IV PRN (11:43)
[2016-12-17] MEDS ORDERED: Acetaminophen 1,000 MG in Premix Bag 1 BAG IV SCH (14:00)
[2016-12-17] MEDS ORDERED: Potassium Phosphates 25 MMOLE in Sodium Chloride 0.9% 500 ML IV ONE ×2 (14:00→18:00)
[2016-12-17] MEDS: Acetaminophen 1,000 MG in Premix Bag 1 BAG IV SCH ×2 (16:04→21:59)
[2016-12-18] MEDS: Magnesium Sulfate/Water 2 GM in Premix Bag 1 BAG IV SCH ×4 (03:28→21:03)
[2016-12-18] MEDS: Dexamethasone 4 MG/ML SDV IVPUSH SCH ×4 (03:28→21:04)
[2016-12-18] MEDS: Acetaminophen 1,000 MG in Premix Bag 1 BAG IV SCH (03:28)
[2016-12-18] MEDS: Albuterol/Ipratropium 3.0-0.5 MG/3 ML Neb Soln INH SCH ×4 (07:18→21:03)
[2016-12-18] MEDS: Dextrose 5%-Lactated Ringers 1,000 ML IV SCH ×2 (08:26→18:37)
[2016-12-18] MEDS: Albumin 25% 12.5 GM in Premix Bag 1 BAG IV SCH ×4 (08:32→17:56)
[2016-12-18] MEDS: Bisacodyl 5 MG Tab PO SCH ×2 (08:32→21:04)
[2016-12-18] MEDS: Enoxaparin 40 MG/0.4 ML Syringe SUBCUT SCH (09:17)
[2016-12-18] MEDS: fentaNYL 25 MCG/HR Transdermal Patch TRDERM SCH (09:21)
[2016-12-18] MEDS: VERIFY FENT PATCH TOP SCH ×2 (09:27→21:04)
--- NOTE | 2016-12-18 09:30 | PN ---
DATE OF SERVICE: 12/18/2016 SUBJECTIVE: Austin had delayed primary closure yesterday. He has not had a bowel movement and is not passing flatus. His vital signs have been stable. His pain has been controlled. He has been up ambulating. He has no other questions or concerns. OBJECTIVE: GENERAL: Austin is a 61-year-old male. VITAL SIGNS: TPR is 97.8, 89, 18, blood pressure 122/76. HEENT: Negative. NECK: Supple. HEART: Regular rate and rhythm. LUNGS: Clear. ABDOMEN: Dressings dry and intact. Abdominal binder is on. EXTREMITIES: Without peripheral edema. ASSESSMENT: 1. Exploratory laparotomy with small bowel resection, stricturoplasty with mesh placement, and decompression of small bowel on 12/15/2016. 2. Delayed primary closure on 12/17/2016. PLAN: 1. Dulcolax tablets 2 b.i.d. p.o. 2. To get orders in regard to starting the diet. 3. Good pulmonary toilet encouraged. 4. We will evaluate p.r.n. or in a.m. Noa Gorman PA-C /[id number]
[2016-12-18] MEDS: Pantoprazole 40 MG Vial IVPUSH SCH (09:44)
[2016-12-18] MEDS ORDERED: Lidocaine 1% 2 ML ONE (20:42)
[2016-12-19] MEDS: Dexamethasone 4 MG/ML SDV IVPUSH SCH ×4 (02:58→19:32)
[2016-12-19] MEDS: Magnesium Sulfate/Water 2 GM in Premix Bag 1 BAG IV SCH ×4 (03:00→21:10)
[2016-12-19] MEDS: Dextrose 5%-Lactated Ringers 1,000 ML IV SCH ×2 (07:09→17:22)
[2016-12-19] MEDS: Albumin 25% 12.5 GM in Premix Bag 1 BAG IV SCH ×5 (07:10→15:15)
[2016-12-19] MEDS: Albuterol/Ipratropium 3.0-0.5 MG/3 ML Neb Soln INH SCH ×4 (07:17→21:16)
[2016-12-19] MEDS: VERIFY FENT PATCH TOP SCH ×2 (08:49→21:09)
[2016-12-19] MEDS: Bisacodyl 5 MG Tab PO SCH ×2 (08:51→21:09)
[2016-12-19] MEDS: Enoxaparin 40 MG/0.4 ML Syringe SUBCUT SCH (08:53)
[2016-12-19] MEDS ORDERED: Magnesium Citrate Solution 296 ML Bottle PO ONE (09:00)
[2016-12-19] MEDS: Pantoprazole 40 MG Vial IVPUSH SCH (09:03)
--- NOTE | 2016-12-19 10:19 | PN ---
DATE OF SERVICE: 12/19/2016 SUBJECTIVE: Alexandres pain has been controlled. Vital signs are stable. He has been ambulating in the veloz. He has not had a bowel movement yet. REVIEW OF SYSTEMS: Otherwise remainder of review of systems negative for any pertinent positives and negatives. OBJECTIVE: GENERAL: Austin Devine is a 61-year-old male. VITAL SIGNS: TPR is 97.5, 82, 16, blood pressure 135/82. HEENT: Negative. NECK: Supple. HEART: Regular rate and rhythm. LUNGS: Clear. ABDOMEN: Dressing dry and intact. Abdominal binder is on. EXTREMITIES: Without peripheral edema. ASSESSMENT: 1. Exploratory laparotomy with small bowel resection and stricturoplasty and mesh placement and decompression of small bowel on 12/15/2016. 2. Delayed primary closure on 12/17/2016. PLAN: 1. One bottle of magnesium citrate now. 2. Dressing off, may shower. 3. Continue good ambulation. 4. We will evaluate p.r.n. or in a.m. Noa Gorman PA-C /[id number]
[2016-12-19] MEDS: HYDROmorphone/Normal Saline 15 MG/30 ML PCA IV PRN (14:31)
[2016-12-20] MEDS: Dexamethasone 4 MG/ML SDV IVPUSH SCH ×4 (02:41→20:55)
[2016-12-20] MEDS: Magnesium Sulfate/Water 2 GM in Premix Bag 1 BAG IV SCH (04:07)
[2016-12-20] MEDS: Dextrose 5%-Lactated Ringers 1,000 ML IV SCH ×2 (04:08→14:02)
[2016-12-20] MEDS: Albuterol/Ipratropium 3.0-0.5 MG/3 ML Neb Soln INH SCH ×4 (07:10→20:54)
[2016-12-20] MEDS: Bisacodyl 5 MG Tab PO SCH ×2 (08:33→20:54)
[2016-12-20] MEDS: VERIFY FENT PATCH TOP SCH ×2 (08:33→20:54)
[2016-12-20] MEDS: Albumin 25% 12.5 GM in Premix Bag 1 BAG IV SCH ×4 (08:34→17:07)
[2016-12-20] MEDS: Pantoprazole 40 MG Vial IVPUSH SCH (08:35)
[2016-12-20] MEDS: Enoxaparin 40 MG/0.4 ML Syringe SUBCUT SCH (08:35)
[2016-12-20] MEDS ORDERED: Magnesium Citrate Solution 296 ML Bottle PO ONE (09:00)
--- NOTE | 2016-12-20 10:12 | OR ---
DATE OF PROCEDURE: 12/17/2016 PREOPERATIVE DIAGNOSIS: Small bowel obstruction. POSTOPERATIVE DIAGNOSES: 1. Small-bowel obstruction, secondary to probable metastatic mass involving distal small bowel. 2. Limited peritoneal carcinomatosis (three other areas of nodularity in the area of small bowel). 3. Cutaneous nodule, right upper quadrant abdominal wall suspicious for metastatic carcinoma. PROCEDURES PERFORMED: 1. Exploratory laparotomy with:. a. Resection of a probable focus metastatic carcinoma (7 cm) with en bloc small- bowel resection (03281, 16321). b. Resection of segments of small bowel wall containing metastatic nodules x2 (24732 x2). c. Stricturoplasty at the site of small bowel metastatic carcinoma involving proximal ileum (81904). d. Enterotomy for tube decompression of the small bowel (64479). e. Placement of Interceed mesh to displace small bowel from the pelvic and abdominal wall to limit recurrent adhesion formation (09944). 2. Excision of probable metastatic nodule of right upper quadrant abdominal wall (97462). ANESTHESIA: General. INDICATION FOR PROCEDURE: Please see progress note dated earlier today. Potential risks of procedure including bleeding, infection, injury to underlying viscera, possible that it maybe a nonresectable tumor identified as well as possibility of cardiopulmonary, septic, or hemorrhagic complications leading to were discussed, and the patient wishes to proceed. DETAILS OF PROCEDURE: The patient was taken to the operating room. After general endotracheal anesthesia was induced, a Burks catheter was inserted and the gastric tube was already in place and the abdomen was prepped and draped. A midline incision extending roughly a handsbreadth below the umbilicus to usp between the umbilicus and the xiphoid was made and carried down through the full-thickness abdominal wall. Upon entering the cavity, there was a small amount of peritoneal fluid present. This was evacuated and sent for cytologic evaluation. At this point, a general exploration was undertaken. The positive findings were that of a 7 cm mass involving the mesentery of the distal small bowel. This contained two loops of small bowel that was causing the point of obstruction with the bowel prep actually being quite strikingly distended. There were three other foci, although much smaller nodules present one over the edge of the small bowel and proximal jejunum, and one over the distal jejunum. These were both amenable to local resection. There was one over the proximal ileum that upon its resection resulted with quite a bit in the way of ischemia and evident stricturing of requiring subsequent stricturoplasty. Apart from that, there were no additional areas of peritoneal carcinomatosis. At the point of the larger mass and obstruction with the underlying mesentery to that area, we did have some obvious lymphadenopathy which was likely metastatic in nature. All of the palpable enlarged nodes were removed with the wedge of the underlying mesenteric resection. Apart from that, there was no additional mesenteric and paraaortic lymphadenopathy and no liver or other visceral metastases identified. At the conclusion of the procedure, there was very limited omentum available for coverage of the abdominal and pelvic davis and therefore Interceed mesh was placed in order to prevent direct adhesion formation of the small bowel to the pelvic and abdominal wall postoperative. The above findings being recognized the initial resection was accomplished with division of the small bowel proximal and distal to the area of the mass in the mesentery. The mesenteric mass was then excised along with the underlying mesentery containing some additional probable lymphadenopathy. All of this accomplished with various sizes of SKYLER marilee and that specimen then delivered from the field. The 2 segments in the more proximal small bowel one at the proximal and second one at the distal jejunum with nodules were present which were then raised up in each case, excised with a portion of the wall of the small bowel and the overlying nodule, these being with SKYLER malone loads. After an initial resection of the area of nodularity at the proximal ileum, that area was quite ischemic and that was somewhat strictured given that area was then treated by means of stricturoplasty with the end of the closed off bowel containing the remaining portion of the bowel that had been involved in the tumor. This was accomplished with 2 internal firings of the SKYLER malone load and the common opening which included the initial area of the excision being closed off with a purple loads. Prior to the initial stricturoplasty, resection, the end of the proximal divided small bowel was opened and a Vermilion sump tube passed into that area and roughly 1400 mL of liquid as well as with additional air was evacuated thus decompressing the bowel proximal to the point of obstruction so as to minimize potential complications related to the small bowel distention and associated anastomosis. The primary anastomosis to the point of the initial bowel resection was then accomplished. Again with 2 internal firings of the SKYLER malone loads, a common opening was closed transversely with the purple load. This area of the mesenteric defect was closed with 3-0 Vicryl stitch and at each of the anastomosis and stricturoplasty sites, the angles of the anastomosis were reinforced with some 3-0 Vicryl stitch as well. At this point, no further intra-abdominal problems were noted, and was irrigated with a meropenem-containing saline solution. The Interceed mesh was then placed across the lower abdomen along the pelvic sidewalls and over this, the midline fascia approximated with #2 Vicryl stitch. The skin and subcutaneous tissue were felt to be at high risk for a primary closure to be undertaken therefore packed open for a planned delayed primary closure in 48 hours. One additional nodule in the right upper quadrant abdominal wall measuring 5 mm, this was excised with a small amount of normal-appearing tissue around it and this was then closed with a single [id number] stitch of 3-0 Vicryl stitch and dressings were then applied. The patient was taken to the recovery room in satisfactory condition. Richie Armenta MD /[id number]
--- NOTE | 2016-12-20 10:35 | PN ---
DATE OF SERVICE: 12/17/2016 The patient has been afebrile with stable vital signs. Heart rate is staying right around 100. Does have somewhat of a cough, which is little bit rattly and control of it appears to be somewhat marginal. The patient underwent delayed primary closure without event this morning. The plan will be to discontinue the Burks catheter which had been done, and then intensify his pulmonary toilet to augment the pain control. We will add some IV Tylenol over the next 24 hours, then probably switch to oral Tylenol tomorrow and move the [employer]LE[employer] INSTRUCTOR dose to 0.4 of Dilaudid. We will have the RT people see the patient, in addition to nursing, and also add Acapella to the pulmonary toilet. Otherwise, we will await the GI tract function. We will give him some sips of liquids today, but not push the diet per se. His phosphate and magnesium are both somewhat low, these will be supplemented. Otherwise, continue to maximize activity and work with pulmonary toilet. His albumin is also quite low. We will supplement that over the next few days as well. Richie Armenta MD /[id number]
--- NOTE | 2016-12-20 11:51 | PN ---
DATE OF SERVICE: 12/20/2016 SUBJECTIVE: Austin is passing gas. He had a bottle of magnesium citrate and has not had a bowel movement yet. His vital signs have been stable. He is getting up on his own. He has no other questions or concerns today. OBJECTIVE: GENERAL: Austin Devine is a 61-year-old male. VITAL SIGNS: TPR is 97.7, 102, 18, blood pressure is 130/83. HEENT: Negative. NECK: Supple. HEART: Regular rate and rhythm. LUNGS: Clear. ABDOMEN: Soft, minimally tender. Abdominal binder is on. EXTREMITIES: Without peripheral edema. ASSESSMENT: 1. Exploratory laparotomy with small bowel resection, strictureplasty, and mesh placement of decompression of small bowel on 12/15/2016. 2. Delayed primary closure, 12/17/2016. PLAN: 1. Repeat bottle of magnesium citrate. Good pulmonary toilet encouraged. 2. We will evaluate p.r.n. or in a.m. Call if bowel movement. Take an advanced diet. Noa Gorman PA-C /[id number]
[2016-12-20] MEDS: HYDROmorphone/Normal Saline 15 MG/30 ML PCA IV PRN (12:55)
[2016-12-21] MEDS: Dextrose 5%-Lactated Ringers 1,000 ML IV SCH (00:55)
[2016-12-21] MEDS: Dexamethasone 4 MG/ML SDV IVPUSH SCH (02:16)
[2016-12-21] MEDS: Albuterol/Ipratropium 3.0-0.5 MG/3 ML Neb Soln INH SCH ×4 (07:14→20:09)
[2016-12-21] MEDS: Bisacodyl 5 MG Tab PO SCH (08:28)
[2016-12-21] MEDS: Albumin 25% 12.5 GM in Premix Bag 1 BAG IV SCH ×4 (08:32→15:07)
--- NOTE | 2016-12-21 09:53 | PCM.PN ---
- General Info Date of Service: 12/21/16 - Review of Systems HEENT: Reports: other (decreased hearing ) Systems Review Comment:: Patient has had difficulty with progressive decline in hearing for the past few days. No complaints of headache and otherwise feels fairly well. He previously had have some cerumen removed. The [id number] hearing aids have provided a little benefit. - Patient Data Vitals - most recent: Last Vital Signs Temp 36.8 C 12/21/16 07:00 Pulse 98 12/21/16 07:16 Resp 20 12/21/16 07:00 BP 151/105 H 12/21/16 07:00 Pulse Ox 90 L 12/21/16 07:49 Weight - most recent: 66.6 kg I&O - last 24 hours: Intake & Output 12/20/16 12/21/16 12/21/16 22:59 06:59 14:59 Intake Total 1858 1455 Output Total 700 3 Balance 1158 1452 Lab Results last 24 hrs: Laboratory Results - last 24 hr 12/21/16 12/21/16 Range/Units 05:24 05:24 WBC 6.1 (4.5-11.0) K/uL RBC 3.64 L (4.30-5.90) M/uL Hgb 9.4 L (12.0-15.0) g/dL Hct 29.2 L (40.0-54.0) % MCV 80 (80-98) fL MCH 26 L (27-31) pg MCHC 32 (32-36) % Plt Count 164 (150-400) K/uL Sodium 140 (140-148) mmol/L Potassium 5.0 (3.6-5.2) mmol/L Chloride 105 (100-108) mmol/L Carbon Dioxide 29 (21-32) mmol/L Anion Gap 6.4 (5.0-14.0) mmol/L BUN 11 (7-18) mg/dL Creatinine 0.8 (0.8-1.3) mg/dL Est Cr Clr Drug Dosing 90.19 mL/min Estimated GFR (MDRD) > 60 (>60) Glucose 123 H (74-106) mg/dL Calcium 7.2 L (8.5-10.1) mg/dL Phosphorus 1.9 L (2.5-4.9) mg/dL Magnesium 3.3 H (1.8-2.4) mg/dL Total Bilirubin 0.5 D (0.2-1.0) mg/dL AST 14 L (15-37) U/L ALT 20 (12-78) U/L Alkaline Phosphatase 60 (46-116) U/L Total Protein 5.5 L (6.4-8.2) g/dL Albumin 3.1 L (3.4-5.0) g/dL Globulin 2.4 (2.3-3.5) g/dL Albumin/Globulin Ratio 1.3 (1.2-2.2) Ed Results last 24 hrs: Microbiology 12/21/16 07:14 Clostridium difficile (PCR) - Final Stool / Feces NEGATIVE CDIFF TOXIN Med Orders - Current: Current Medications Albuterol/Ipratropium (Duoneb 3.0-0.5 Mg/3 Ml) 3 ml INH QIDRT [facility] Last Admin: 12/21/16 07:14 Dose: 3 ml Albuterol/Ipratropium (Duoneb 3.0-0.5 Mg/3 Ml) 3 ml INH ASDIRECTED PRN PRN Reason: RESP DISTRESS Last Admin: 12/17/16 05:47 Dose: 3 ml Bisacodyl (Dulcolax) 20 mg PO BID [facility] Last Admin: 12/21/16 08:28 Dose: Not Given Carbamide Perox/Anhydrous Glycerin (Debrox 6.5% Otic Soln) 4 ml EARBOTH ONETIME ONE Stop: 12/21/16 09:51 Dexamethasone (Dexamethasone) 4 mg PO Q6H [facility] Enoxaparin Sodium (Lovenox) 40 mg SUBCUT DAILY [facility] Last Admin: 12/20/16 08:35 Dose: 40 mg Fentanyl (Duragesic) 25 mcg TRDERM Q72H [facility] Last Admin: 12/18/16 09:21 Dose: 25 mcg Albumin Human 12.5 gm/ Premix 50 mls @ 25 mls/hr IV Q24H [facility] Stop: 12/21/16 10:59 Last Admin: 12/21/16 08:32 Dose: 25 mls/hr Albumin Human 12.5 gm/ Premix 50 mls @ 25 mls/hr IV Q24H [facility] Stop: 12/21/16 12:59 Last Admin: 12/20/16 11:34 Dose: 25 mls/hr Albumin Human 12.5 gm/ Premix 50 mls @ 25 mls/hr IV Q24H [facility] Stop: 12/21/16 14:59 Last Admin: 12/20/16 14:01 Dose: 25 mls/hr Albumin Human 12.5 gm/ Premix 50 mls @ 25 mls/hr IV Q24H [facility] Stop: 12/21/16 16:59 Last Admin: 12/20/16 17:07 Dose: 25 mls/hr Meclizine HCl (Antivert) 25 mg PO Q6H PRN PRN Reason: Dizziness Last Admin: 12/16/16 15:07 Dose: 25 mg Verify Fent Patch 0 each TOP BID [facility] Last Admin: 12/20/16 20:54 Dose: Not Given Ondansetron HCl (Zofran) 4 mg IV Q4H PRN PRN Reason: Nausea/Vomiting Last Admin: 12/20/16 02:41 Dose: 4 mg Oxycodone/Acetaminophen (Percocet 325-5 Mg) 1 - 2 tab PO Q4H PRN PRN Reason: PAIN Pantoprazole Sodium (Protonix Iv) 40 mg IVPUSH DAILY [facility] Last Admin: 12/20/16 08:35 Dose: 40 mg Phenol (Phenaseptic Liquid) 0 ml PO Q1H PRN PRN Reason: Sore Throat Sodium Chloride (Saline Flush) 10 ml FLUSH ASDIRECTED PRN PRN Reason: Keep Vein Open Discontinued Medications Bupivacaine HCl (Marcaine 0.5%) Confirm Administered Dose 50 ml .ROUTE .STK-MED ONE Stop: 12/17/16 06:48 Last Admin: 12/17/16 07:34 Dose: 15 ml Dexamethasone (Dexamethasone) 4 mg IVPUSH Q6H [facility] Last Admin: 12/15/16 14:29 Dose: 4 mg Dexamethasone (Dexamethasone) Confirm Administered Dose 4 mg .ROUTE .STK-MED ONE Stop: 12/15/16 08:53 Dexamethasone (Dexamethasone) 4 mg IVPUSH Q6H [facility] Last Admin: 12/21/16 02:16 Dose: 4 mg Enoxaparin Sodium (Lovenox) 40 mg SUBCUT DAILY [facility] Last Admin: 12/15/16 14:29 Dose: 40 mg Fentanyl (Sublimaze) Confirm Administered Dose 250 mcg .ROUTE .STK-MED ONE Stop: 12/15/16 08:52 Fentanyl (Sublimaze) Confirm Administered Dose 100 mcg .ROUTE .STK-MED ONE Stop: 12/15/16 11:08 Fentanyl (Sublimaze) 100 mcg IVPUSH ONETIME ONE Stop: 12/15/16 11:59 Last Admin: 12/15/16 12:08 Dose: 100 mcg Fentanyl (Sublimaze) Confirm Administered Dose 100 mcg .ROUTE .STK-MED ONE Stop: 12/17/16 07:10 Glycopyrrolate () Confirm Administered Dose 1 mg .ROUTE .STK-MED ONE Stop: 12/15/16 08:53 Hydromorphone HCl (Dilaudid Shipping Clerk/Admin 15 Mg In Ns 30 Ml) 0 mg IV ASDIRECTED PRN; Protocol PRN Reason: RADIO INTELLIGENCE 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 Last Admin: 12/20/16 12:55 Dose: 15 mg Hydroxyzine HCl (Vistaril) 50 mg IM ONETIME ONE Stop: 12/15/16 12:18 Last Admin: 12/15/16 12:24 Dose: 50 mg Lactated Ringer's (Ringers, Lactated) 1,000 mls @ 125 mls/hr IV ASDIRECTED [facility] Last Admin: 12/15/16 07:46 Dose: 125 mls/hr Lactated Ringer's (Ringers, Lactated) 1,000 mls @ 333 mls/hr IV ASDIRECTED [facility] Stop: 12/14/16 12:16 Last Admin: 12/14/16 09:25 Dose: 333 mls/hr Cefoxitin Sodium 2 gm/ Sodium (Chloride) 50 mls @ 100 mls/hr IV ONETIME ONE Stop: 12/15/16 09:29 Last Admin: 12/15/16 08:53 Dose: 100 mls/hr Lactated Ringer's (Ringers, Lactated) Confirm Administered Dose 1,000 mls @ as directed .ROUTE .STK-MED ONE Stop: 12/15/16 09:15 Dextrose/Lactated Ringer's (Dextrose 5%-Lactated Ringers) 1,000 mls @ 200 mls/ hr IV ASDIRECTED [facility] Last Admin: 12/17/16 05:12 Dose: 200 mls/hr Cefoxitin Sodium 2 gm/ Sodium (Chloride) 50 mls @ 100 mls/hr IV Q6H [facility] Stop: 12/17/16 12:29 Last Admin: 12/17/16 12:13 Dose: 100 mls/hr Lactated Ringer's (Ringers, Lactated) 500 mls @ 500 mls/hr IV .BOLUS [facility] Last Admin: 12/15/16 23:14 Dose: 500 mls/hr Lactated Ringer's (Ringers, Lactated) 500 mls @ 500 mls/hr IV BOLUS ONE Stop: 12/16/16 00:02 Last Admin: 12/15/16 23:42 Dose: Not Given Lactated Ringer's (Ringers, Lactated) 500 mls @ 500 mls/hr IV BOLUS ONE Stop: 12/16/16 03:02 Last Admin: 12/16/16 02:05 Dose: 500 mls/hr Lactated Ringer's (Ringers, Lactated) 500 mls @ 500 mls/hr IV BOLUS ONE Stop: 12/16/16 06:41 Last Admin: 12/16/16 05:45 Dose: 500 mls/hr Potassium Phosphate 15 mmole/ (Sodium Chloride) 255 mls @ 125 mls/hr IV Q2H [facility] Stop: 12/16/16 13:59 Last Admin: 12/16/16 13:10 Dose: 125 mls/hr Lactated Ringer's (Ringers, Lactated) 500 mls @ 500 mls/hr IV .BOLUS ONE Stop: 12/16/16 15:29 Last Admin: 12/16/16 15:07 Dose: 500 mls/hr Acetaminophen (Ofirmev) Confirm Administered Dose 100 mls @ as directed IV .STK- MED ONE Stop: 12/17/16 07:45 Dextrose/Lactated Ringer's (Dextrose 5%-Lactated Ringers) 1,000 mls @ 100 mls/ hr IV ASDIRECTED [facility] Last Admin: 12/21/16 00:55 Dose: 100 mls/hr Magnesium Sulfate 2 gm/ Premix 50 mls @ 25 mls/hr IV Q6H [facility] Stop: 12/20/16 05:59 Last Admin: 12/20/16 04:07 Dose: 25 mls/hr Potassium Phosphate 20 mmole/ (Sodium Chloride) 256.6667 mls @ 86 mls/hr IV ONETIME ONE Stop: 12/17/16 12:59 Last Admin: 12/17/16 12:48 Dose: 86 mls/hr Potassium Phosphate 25 mmole/ (Sodium Chloride) 508.3333 mls @ 125 mls/hr IV ONETIME ONE Stop: 12/17/16 22:03 Last Admin: 12/17/16 18:21 Dose: 125 mls/hr Acetaminophen 1,000 mg/ Premix 100 mls @ 400 mls/hr IV Q6H [facility] Stop: 12/18/16 04:14 Last Admin: 12/18/16 03:28 Dose: 400 mls/hr Lidocaine HCl (Xylocaine-Mpf 1%) Confirm Administered Dose 2 mls @ as directed .ROUTE .STK-MED ONE Stop: 12/18/16 20:43 Ketamine HCl (Ketalar) Confirm Administered Dose 500 mg .ROUTE .STK-MED ONE Stop: 12/15/16 10:10 Lidocaine/Epinephrine (Xylocaine 1% With Epinephrine 1:100,000) Confirm Administered Dose 50 ml .ROUTE .STK-MED ONE Stop: 12/17/16 06:48 Last Admin: 12/17/16 07:34 Dose: 15 ml Magnesium Citrate (Citrate Of Magnesia) 287 ml PO ONETIME ONE Stop: 12/19/16 09:01 Last Admin: 12/19/16 08:51 Dose: 287 ml Magnesium Citrate (Citrate Of Magnesia) 287 ml PO ONETIME ONE Stop: 12/20/16 09:01 Last Admin: 12/20/16 08:35 Dose: 287 ml Meropenem (Merrem) Confirm Administered Dose 500 mg .ROUTE .STK-MED ONE Stop: 12/15/16 10:51 Last Admin: 12/16/16 09:16 Dose: 500 mg Meropenem (Merrem) Confirm Administered Dose 500 mg .ROUTE .STK-MED ONE Stop: 12/17/16 06:48 Last Admin: 12/17/16 07:30 Dose: 500 mg Methylprednisolone Sodium Succinate (Solu-Medrol) 60 mg IVPUSH ONETIME ONE Stop: 12/15/16 09:01 Last Admin: 12/15/16 08:51 Dose: 60 mg Midazolam HCl (Versed 1 Mg/Ml) Confirm Administered Dose 2 mg .ROUTE .STK-MED ONE Stop: 12/15/16 08:52 Midazolam HCl (Versed 1 Mg/Ml) Confirm Administered Dose 2 mg .ROUTE .STK-MED ONE Stop: 12/17/16 07:10 Naloxone HCl (Narcan) 0.1 mg IV ASDIRECTED PRN PRN Reason: decreased respiratory rate Neostigmine Methylsulfate (Neostigmine) Confirm Administered Dose 5 mg .ROUTE .STK-MED ONE Stop: 12/15/16 08:53 Ondansetron HCl (Zofran) Confirm Administered Dose 4 mg .ROUTE .STK-MED ONE Stop: 12/15/16 08:53 Propofol (Diprivan 20 Ml) Confirm Administered Dose 200 mg .ROUTE .STK-MED ONE Stop: 12/15/16 08:53 Propofol (Diprivan 20 Ml) Confirm Administered Dose 200 mg .ROUTE .STK-MED ONE Stop: 12/17/16 07:10 Rocuronium Doon (Zemuron) Confirm Administered Dose 50 mg .ROUTE .STK-MED ONE Stop: 12/15/16 08:53 Succinylcholine Chloride (Succinylcholine In Ns Pf) Confirm Administered Dose 200 mg .ROUTE .STK-MED ONE Stop: 12/15/16 08:53 Succinylcholine Chloride (Succinylcholine In Ns Pf) Confirm Administered Dose 200 mg .ROUTE .STK-MED ONE Stop: 12/15/16 11:10 - Exam Quality Assessment: supplemental oxygen General: alert, oriented, cooperative, no acute distress HEENT: Other (hard of hearing. both ears nearly completely occluded by cerumen, right > left ) Lungs: Normal respiratory effort - Problem List Review Problem List Initiated/Reviewed/Updated: Yes - My Orders Last 24 Hours: My Active Orders 12/21/16 09:50 Carbamide Peroxide [Debrox 6.5% Otic Soln] 4 ml EARBOTH ONETIME ONE - Plan Plan:: ASSESSMENT AND PLAN - Impaired hearing, acute on chronic - examination suggestive of impacted cerumen and his hearing has improved dramatically after both of his ears were washed out this afternoon. -Consider when necessary debrox versus intermittent ear washes Chandler Garcia M.D.
[2016-12-21] MEDS: Dexamethasone 4 MG Tab PO SCH ×3 (10:07→20:09)
[2016-12-21] MEDS: Enoxaparin 40 MG/0.4 ML Syringe SUBCUT SCH (10:07)
[2016-12-21] MEDS: Pantoprazole 40 MG Vial IVPUSH SCH (10:08)
[2016-12-21] MEDS: fentaNYL 25 MCG/HR Transdermal Patch TRDERM SCH (10:10)
[2016-12-21] MEDS: VERIFY FENT PATCH TOP SCH ×2 (10:11→20:10)
[2016-12-21] MEDS ORDERED: Carbamide Peroxide 6.5% Otic Soln 15 ML Bottle EARBOTH ONE (10:30)
[2016-12-21] MEDS: Acetaminophen/oxyCODONE 325-5 MG Tab PO PRN (19:40)
[2016-12-22] MEDS: Acetaminophen/oxyCODONE 325-5 MG Tab PO PRN ×3 (00:15→07:42)
[2016-12-22] MEDS: Dexamethasone 4 MG Tab PO SCH ×3 (01:46→14:04)
[2016-12-22] MEDS ORDERED: hydrOXYzine HCl 50 MG/ML SDV IM ONE (01:54)
[2016-12-22] MEDS ORDERED: Meperidine PF 75 MG/ML Syringe IM ONE (01:55)
[2016-12-22] MEDS: Albuterol/Ipratropium 3.0-0.5 MG/3 ML Neb Soln INH SCH ×4 (07:14→20:53)
[2016-12-22] MEDS ORDERED: Pantoprazole 40 MG Tab.CR PO SCH (07:30)
[2016-12-22] MEDS: Enoxaparin 40 MG/0.4 ML Syringe SUBCUT SCH ×2 (07:32→08:46)
[2016-12-22] MEDS ORDERED: Ondansetron 4 MG Tab.DIS PO PRN (07:36)
[2016-12-22] MEDS: VERIFY FENT PATCH TOP SCH ×2 (08:46→20:53)
[2016-12-22] MEDS: Ibuprofen 400 MG Tab PO SCH ×2 (09:55→17:13)
[2016-12-22] MEDS ORDERED: HYDROmorphone 1 MG/ML Syringe IVPUSH PRN (10:26)
[2016-12-22] MEDS ORDERED: Naloxone 0.4 MG/ML SDV IVPUSH PRN (10:43)
[2016-12-22] MEDS ORDERED: Sodium Chloride 0.9% 1,000 ML IV SCH (10:45)
--- NOTE | 2016-12-22 10:46 | PCM.PN ---
- General Info Date of Service: 12/22/16 Functional Status: Denies: pain controlled, ambulating - Review of Systems Gastrointestinal: Reports: Abdominal pain Systems Review Comment:: No acute events overnight but this morning the patient developed severe generalized abdominal pain. This pain has progressed over the last few hours. He does not report any nausea and has not had any vomiting. This is a pressure- like pain throughout his abdomen. It has grown steadily worse despite using oxycodone. The pain is severe enough that he has been hyperventilating. Hearing seems to be at baseline at this point. - Patient Data Vitals - most recent: Last Vital Signs Temp 36.7 C 12/22/16 08:19 Pulse 114 H 12/22/16 08:19 Resp 18 12/22/16 08:19 BP 108/79 12/22/16 08:19 Pulse Ox 88 L 12/22/16 08:19 Weight - most recent: 66.6 kg I&O - last 24 hours: Intake & Output 12/21/16 12/22/16 12/22/16 22:59 06:59 14:59 Intake Total 924 480 120 Output Total 1 Balance 924 479 120 Ed Results last 24 hrs: Microbiology 12/21/16 07:14 Clostridium difficile (PCR) - Final Stool / Feces NEGATIVE CDIFF TOXIN Med Orders - Current: Current Medications Albuterol/Ipratropium (Duoneb 3.0-0.5 Mg/3 Ml) 3 ml INH QIDRT COUNT [facility]CLUDES [facility] Last Admin: 12/22/16 07:14 Dose: 3 ml Albuterol/Ipratropium (Duoneb 3.0-0.5 Mg/3 Ml) 3 ml INH ASDIRECTED PRN PRN Reason: RESP DISTRESS Last Admin: 12/17/16 05:47 Dose: 3 ml Dexamethasone (Dexamethasone) 4 mg PO Q6H [facility] Last Admin: 12/22/16 07:31 Dose: 4 mg Enoxaparin Sodium (Lovenox) 40 mg SUBCUT DAILY [facility] Last Admin: 12/22/16 08:46 Dose: Not Given Fentanyl (Duragesic) 25 mcg TRDERM Q72H [facility] Last Admin: 12/21/16 10:10 Dose: 25 mcg Hydromorphone HCl (Dilaudid) 1 mg IVPUSH Q2H PRN PRN Reason: Pain (severe 7-10) Last Admin: 12/22/16 10:31 Dose: 1 mg Hydromorphone HCl (Dilaudid Combat Systems Officer 15 Mg In Ns 30 Ml) 0 mg IV ASDIRECTED PRN; Protocol PRN Reason: Pain Sodium Chloride (Normal Saline) 1,000 mls @ 75 mls/hr IV ASDIRECTED [facility]CLUD[facility] Ibuprofen (Motrin) 400 mg PO QID COUNT [facility]CLUD[facility] Last Admin: 12/22/16 09:55 Dose: 400 mg Meclizine HCl (Antivert) 25 mg PO Q6H PRN PRN Reason: Dizziness Last Admin: 12/16/16 15:07 Dose: 25 mg Naloxone HCl (Narcan) 0.4 mg IVPUSH Q2M PRN PRN Reason: Respiratory Distress Verify Fent Patch 0 each TOP BID COUNT [facility]CLUD[facility] Last Admin: 12/22/16 08:46 Dose: Not Given Ondansetron HCl (Zofran) 4 mg IV Q4H PRN PRN Reason: Nausea/Vomiting Last Admin: 12/20/16 02:41 Dose: 4 mg Ondansetron HCl (Zofran Odt) 4 mg PO Q4H PRN PRN Reason: Nausea/Vomiting Oxycodone/Acetaminophen (Percocet 325-5 Mg) 1 - 2 tab PO Q4H PRN PRN Reason: PAIN Last Admin: 12/22/16 07:42 Dose: 2 tab Pantoprazole Sodium (Protonix) 40 mg PO ACBREAKFAST COUNT INCLUDES [facility] Last Admin: 12/22/16 07:31 Dose: 40 mg Phenol (Phenaseptic Liquid) 0 ml PO Q1H PRN PRN Reason: Sore Throat Sodium Chloride (Saline Flush) 10 ml FLUSH ASDIRECTED PRN PRN Reason: Keep Vein Open Discontinued Medications Bisacodyl (Dulcolax) 20 mg PO BID [facility] Last Admin: 12/21/16 08:28 Dose: Not Given Bupivacaine HCl (Marcaine 0.5%) Confirm Administered Dose 50 ml .ROUTE .STK-MED ONE Stop: 12/17/16 06:48 Last Admin: 12/17/16 07:34 Dose: 15 ml Carbamide Perox/Anhydrous Glycerin (Debrox 6.5% Otic Soln) 0 ml EARBOTH ONETIME ONE Stop: 12/21/16 10:31 Last Admin: 12/21/16 11:40 Dose: 4 drop Dexamethasone (Dexamethasone) 4 mg IVPUSH Q6H [facility] Last Admin: 12/15/16 14:29 Dose: 4 mg Dexamethasone (Dexamethasone) Confirm Administered Dose 4 mg .ROUTE .STK-MED ONE Stop: 12/15/16 08:53 Dexamethasone (Dexamethasone) 4 mg IVPUSH Q6H [facility] Last Admin: 12/21/16 02:16 Dose: 4 mg Enoxaparin Sodium (Lovenox) 40 mg SUBCUT DAILY [facility] Last Admin: 12/15/16 14:29 Dose: 40 mg Fentanyl (Sublimaze) Confirm Administered Dose 250 mcg .ROUTE .STK-MED ONE Stop: 12/15/16 08:52 Fentanyl (Sublimaze) Confirm Administered Dose 100 mcg .ROUTE .STK-MED ONE Stop: 12/15/16 11:08 Fentanyl (Sublimaze) 100 mcg IVPUSH ONETIME ONE Stop: 12/15/16 11:59 Last Admin: 12/15/16 12:08 Dose: 100 mcg Fentanyl (Sublimaze) Confirm Administered Dose 100 mcg .ROUTE .STK-MED ONE Stop: 12/17/16 07:10 Glycopyrrolate () Confirm Administered Dose 1 mg .ROUTE .STK-MED ONE Stop: 12/15/16 08:53 Hydromorphone HCl (Dilaudid Combat Systems Officer 15 Mg In Ns 30 Ml) 0 mg IV ASDIRECTED PRN; Protocol PRN Reason: REHAB MANAGER PAIN CONTROL Last Admin: 12/20/16 12:55 Dose: 15 mg Hydroxyzine HCl (Vistaril) 50 mg IM ONETIME ONE Stop: 12/15/16 12:18 Last Admin: 12/15/16 12:24 Dose: 50 mg Hydroxyzine HCl (Vistaril) 75 mg IM ONETIME ONE Stop: 12/22/16 01:55 Last Admin: 12/22/16 02:18 Dose: 75 mg Lactated Ringer's (Ringers, Lactated) 1,000 mls @ 125 mls/hr IV ASDIRECTED COUNT [facility]CLUDES [facility] Last Admin: 12/15/16 07:46 Dose: 125 mls/hr Lactated Ringer's (Ringers, Lactated) 1,000 mls @ 333 mls/hr IV ASDIRECTED COUNT [facility]CLUDES [facility] Stop: 12/14/16 12:16 Last Admin: 12/14/16 09:25 Dose: 333 mls/hr Cefoxitin Sodium 2 gm/ Sodium (Chloride) 50 mls @ 100 mls/hr IV ONETIME ONE Stop: 12/15/16 09:29 Last Admin: 12/15/16 08:53 Dose: 100 mls/hr Lactated Ringer's (Ringers, Lactated) Confirm Administered Dose 1,000 mls @ as directed .ROUTE .STK-MED ONE Stop: 12/15/16 09:15 Dextrose/Lactated Ringer's (Dextrose 5%-Lactated Ringers) 1,000 mls @ 200 mls/ hr IV ASDIRECTED COUNT [facility]CLUDES [facility] Last Admin: 12/17/16 05:12 Dose: 200 mls/hr Cefoxitin Sodium 2 gm/ Sodium (Chloride) 50 mls @ 100 mls/hr IV Q6H COUNT [facility]CLUDES [facility] Stop: 12/17/16 12:29 Last Admin: 12/17/16 12:13 Dose: 100 mls/hr Lactated Ringer's (Ringers, Lactated) 500 mls @ 500 mls/hr IV .BOLUS COUNT INCLUDES THE [facility] Last Admin: 12/15/16 23:14 Dose: 500 mls/hr Lactated Ringer's (Ringers, Lactated) 500 mls @ 500 mls/hr IV BOLUS ONE Stop: 12/16/16 00:02 Last Admin: 12/15/16 23:42 Dose: Not Given Lactated Ringer's (Ringers, Lactated) 500 mls @ 500 mls/hr IV BOLUS ONE Stop: 12/16/16 03:02 Last Admin: 12/16/16 02:05 Dose: 500 mls/hr Lactated Ringer's (Ringers, Lactated) 500 mls @ 500 mls/hr IV BOLUS ONE Stop: 12/16/16 06:41 Last Admin: 12/16/16 05:45 Dose: 500 mls/hr Potassium Phosphate 15 mmole/ (Sodium Chloride) 255 mls @ 125 mls/hr IV Q2H COUNT INCLUDES [facility] Stop: 12/16/16 13:59 Last Admin: 12/16/16 13:10 Dose: 125 mls/hr Lactated Ringer's (Ringers, Lactated) 500 mls @ 500 mls/hr IV .BOLUS ONE Stop: 12/16/16 15:29 Last Admin: 12/16/16 15:07 Dose: 500 mls/hr Acetaminophen (Ofirmev) Confirm Administered Dose 100 mls @ as directed IV .STK- MED ONE Stop: 12/17/16 07:45 Dextrose/Lactated Ringer's (Dextrose 5%-Lactated Ringers) 1,000 mls @ 100 mls/ hr IV ASDIRECTED COUNT INCLUDES [facility] Last Admin: 12/21/16 00:55 Dose: 100 mls/hr Albumin Human 12.5 gm/ Premix 50 mls @ 25 mls/hr IV Q24H COUNT INCLUDES [facility] Stop: 12/21/16 10:59 Last Admin: 12/21/16 08:32 Dose: 25 mls/hr Albumin Human 12.5 gm/ Premix 50 mls @ 25 mls/hr IV Q24H COUNT INCLUDES [facility] Stop: 12/21/16 12:59 Last Admin: 12/21/16 10:08 Dose: 25 mls/hr Albumin Human 12.5 gm/ Premix 50 mls @ 25 mls/hr IV Q24H COUNT [facility]CLUDES [facility] Stop: 12/21/16 14:59 Last Admin: 12/21/16 13:03 Dose: 25 mls/hr Albumin Human 12.5 gm/ Premix 50 mls @ 25 mls/hr IV Q24H COUNT INCLUDES [facility] Stop: 12/21/16 16:59 Last Admin: 12/21/16 15:07 Dose: 25 mls/hr Magnesium Sulfate 2 gm/ Premix 50 mls @ 25 mls/hr IV Q6H COUNT INCLUDES [facility] Stop: 12/20/16 05:59 Last Admin: 12/20/16 04:07 Dose: 25 mls/hr Potassium Phosphate 20 mmole/ (Sodium Chloride) 256.6667 mls @ 86 mls/hr IV ONETIME ONE Stop: 12/17/16 12:59 Last Admin: 12/17/16 12:48 Dose: 86 mls/hr Potassium Phosphate 25 mmole/ (Sodium Chloride) 508.3333 mls @ 125 mls/hr IV ONETIME ONE Stop: 12/17/16 22:03 Last Admin: 12/17/16 18:21 Dose: 125 mls/hr Acetaminophen 1,000 mg/ Premix 100 mls @ 400 mls/hr IV Q6H COUNT INCLUDES [facility] Stop: 12/18/16 04:14 Last Admin: 12/18/16 03:28 Dose: 400 mls/hr Lidocaine HCl (Xylocaine-Mpf 1%) Confirm Administered Dose 2 mls @ as directed .ROUTE .STK-MED ONE Stop: 12/18/16 20:43 Ketamine HCl (Ketalar) Confirm Administered Dose 500 mg .ROUTE .STK-MED ONE Stop: 12/15/16 10:10 Lidocaine/Epinephrine (Xylocaine 1% With Epinephrine 1:100,000) Confirm Administered Dose 50 ml .ROUTE .STK-MED ONE Stop: 12/17/16 06:48 Last Admin: 12/17/16 07:34 Dose: 15 ml Magnesium Citrate (Citrate Of Magnesia) 287 ml PO ONETIME ONE Stop: 12/19/16 09:01 Last Admin: 12/19/16 08:51 Dose: 287 ml Magnesium Citrate (Citrate Of Magnesia) 287 ml PO ONETIME ONE Stop: 12/20/16 09:01 Last Admin: 12/20/16 08:35 Dose: 287 ml Meperidine HCl (Demerol) 75 mg IM ONETIME ONE Stop: 12/22/16 01:56 Last Admin: 12/22/16 02:17 Dose: 75 mg Meropenem (Merrem) Confirm Administered Dose 500 mg .ROUTE .STK-MED ONE Stop: 12/15/16 10:51 Last Admin: 12/16/16 09:16 Dose: 500 mg Meropenem (Merrem) Confirm Administered Dose 500 mg .ROUTE .STK-MED ONE Stop: 12/17/16 06:48 Last Admin: 12/17/16 07:30 Dose: 500 mg Methylprednisolone Sodium Succinate (Solu-Medrol) 60 mg IVPUSH ONETIME ONE Stop: 12/15/16 09:01 Last Admin: 12/15/16 08:51 Dose: 60 mg Midazolam HCl (Versed 1 Mg/Ml) Confirm Administered Dose 2 mg .ROUTE .STK-MED ONE Stop: 12/15/16 08:52 Midazolam HCl (Versed 1 Mg/Ml) Confirm Administered Dose 2 mg .ROUTE .STK-MED ONE Stop: 12/17/16 07:10 Naloxone HCl (Narcan) 0.1 mg IV ASDIRECTED PRN PRN Reason: decreased respiratory rate Neostigmine Methylsulfate (Neostigmine) Confirm Administered Dose 5 mg .ROUTE .STK-MED ONE Stop: 12/15/16 08:53 Ondansetron HCl (Zofran) Confirm Administered Dose 4 mg .ROUTE .STK-MED ONE Stop: 12/15/16 08:53 Pantoprazole Sodium (Protonix Iv) 40 mg IVPUSH DAILY FANG Last Admin: 12/21/16 10:08 Dose: 40 mg Propofol (Diprivan 20 Ml) Confirm Administered Dose 200 mg .ROUTE .STK-MED ONE Stop: 12/15/16 08:53 Propofol (Diprivan 20 Ml) Confirm Administered Dose 200 mg .ROUTE .STK-MED ONE Stop: 12/17/16 07:10 Rocuronium [place] (Zemuron) Confirm Administered Dose 50 mg .ROUTE .STK-MED ONE Stop: 12/15/16 08:53 Succinylcholine Chloride (Succinylcholine In Ns Pf) Confirm Administered Dose 200 mg .ROUTE .STK-MED ONE Stop: 12/15/16 08:53 Succinylcholine Chloride (Succinylcholine In Ns Pf) Confirm Administered Dose 200 mg .ROUTE .STK-MED ONE Stop: 12/15/16 11:10 - Exam Quality Assessment: supplemental oxygen General: alert, oriented, cooperative, mild distress Neck: supple Abdomen: bowel sounds present, soft, no distension, tenderness (severe generalized tenderness with even light palpation) Extremities: no edema, no cyanosis Skin: warm, dry Psy/Mental Status: alert, normal affect - Problem List Review Problem List Initiated/Reviewed/Updated: Yes - My Orders Last 24 Hours: My Active Orders 12/22/16 10:26 HYDROmorphone [Dilaudid] 1 mg IVPUSH Q2H PRN 12/22/16 10:28 Abdomen Pelvis w Cont [CT] Urgent 12/22/16 10:43 Communication Order [RC] STAT Notify Provider [RC] PRN REHAB MANAGER Record [RC] PER UNIT ROUTINE Pulse Oximetry [RC] CONTINUOUS HYDROmorphone/Normal Saline [Dilaudid REHAB MANAGER 15 MG in NS 30 ML] See Protocol IV ASDIRECTED PRN Naloxone [Narcan] 0.4 mg IVPUSH Q2M PRN Medication Discontinuation Instructions [OM.PC] Stat 12/22/16 10:45 Sodium Chloride 0.9% [Normal Saline] 1,000 ml IV ASDIRECTED - Plan Plan:: ASSESSMENT AND PLAN - Acute severe abdominal pain - started this morning, and no associated vomiting. CT scan suggests ileus or developing small bowel obstruction. CT results were discussed with Dr. Armenta. -NG tube -IV fluids -REHAB MANAGER -N.p.o. status Impaired hearing, acute on chronic - hearing improved after ear wash. -Consider when necessary debrox versus intermittent ear washes Chandler Garcia M.D.
[2016-12-22] MEDS ORDERED: Sodium Chloride 0.9% 10 ML Syringe FLUSH PRN (10:51)
[2016-12-22] MEDS ORDERED: Iopamidol 612 MG/ML 100 ML Bottle IV PRN (10:51)
[2016-12-22] MEDS ORDERED: Sodium Chloride 0.9% 100 ML IV SCH (11:00)
[2016-12-22] MEDS: HYDROmorphone/Normal Saline 15 MG/30 ML PCA IV PRN (11:46)
[2016-12-22] MEDS: Dextrose 5%-Lactated Ringers 1,000 ML IV SCH (13:32)
[2016-12-22] MEDS: Albuterol/Ipratropium 3.0-0.5 MG/3 ML Neb Soln INH PRN (16:38)
[2016-12-22] MEDS: Dexamethasone 4 MG/ML SDV IVPUSH SCH (20:52)
[2016-12-22] MEDS ORDERED: Sodium Chloride 0.9% 500 ML IV ONE (20:55)
[2016-12-22] MEDS ORDERED: Sodium Chloride 0.9% 1,000 ML IV ONE (22:01)
--- NOTE | 2016-12-22 22:12 | PCM.SN ---
- Free Text/Narrative Note: call from [address] [place] [address] at 22:54 concerns of vital signs; heart rate 140's, blood pressure low 96/54, uncomfortable a; vital signs changes, hypotension, tachycardia p; order; IV normal saline 500 ml, tele, EKG, Xray chest and abdomen, labs.
[2016-12-23] MEDS ORDERED: Sodium Chloride 0.9% 500 ML IV ONE (05:08)
[2016-12-23] MEDS ORDERED: Lidocaine 2% Jelly 10 ML Urojet MUCMEM ONE (05:56)
--- NOTE | 2016-12-23 06:04 | PCM.SN ---
- Free Text/Narrative Note: time 0600 s/o; Nursing request to have hall cath place, patient it getting up a lot to void, patient is very weak a; urinary frequency p; place hall cath., continue with close monitoring.
--- NOTE | 2016-12-23 07:13 | PN ---
DATE OF SERVICE: 12/21/2016 The patient has been afebrile with stable vital signs and he is now moving his bowels quite often. We will today and the patient was switched over to oral pain medication. The patient will be advanced to regular diet with some milkshakes and such between meals. 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 Richie Armenta MD /[id number]
[2016-12-23] MEDS: Albuterol/Ipratropium 3.0-0.5 MG/3 ML Neb Soln INH SCH ×4 (07:24→20:11)
--- NOTE | 2016-12-23 08:10 | PN ---
DATE OF SERVICE: 12/23/2016 SUBJECTIVE: Austin developed an ileus yesterday, NG put out 400. He did have a bolus of 500 LR and then 1 L of LR for a low blood pressure. Burks catheter was replaced due to urinary retention. He had a bladder scan with 279. He is weak, did get up and go to the bathroom and had a near-syncope episode, got diaphoretic and grijalva. Vital signs, he has been afebrile. Pulse rate is in the 128 and O2 by pulse ox 90% on 6 L. OBJECTIVE: GENERAL: Austin Devine, his hearing got extensively harder to hear, almost everything has to be written on a white board now. VITAL SIGNS: TPR is 97.8, 128, 12, blood pressure 117/69. HEENT: Negative. NECK: Supple. HEART: Regular rate and rhythm. Tachy. ABDOMEN: Soft, minimally tender, not distended. EXTREMITIES: Without peripheral edema. ASSESSMENT: 1. Urinary retention and frequency. Exploratory laparotomy with small bowel resection, strictureplasty and mesh placement of decompression of small bowel on 12/15/2016. 2. Delayed primary closure 12/17/2016, postoperative ileus. PLAN: 1. Check blood cultures x2. 2. Check UA, UC, and sensitivity. 3. Meropenem 500 mg IV q.6 hours. 4. Zyvox 600 mg q.12 hours. 5. Check CBC, CMP, Mag, phos in a.m. 6. Good pulmonary toilet encouraged. 7. We will evaluate p.r.n. or in a.m. Noa Gorman PA-C /[id number]
[2016-12-23] MEDS: Meropenem 500 MG in Sodium Chloride 0.9% 50 ML IV SCH ×3 (08:44→20:07)
[2016-12-23] MEDS: Enoxaparin 40 MG/0.4 ML Syringe SUBCUT SCH (08:50)
[2016-12-23] MEDS: Dexamethasone 4 MG/ML SDV IVPUSH SCH ×2 (08:51→20:09)
[2016-12-23] MEDS: VERIFY FENT PATCH TOP SCH ×2 (08:53→20:11)
[2016-12-23] MEDS: Linezolid 600 MG in Premix Bag 1 BAG IV SCH ×2 (09:19→20:12)
--- NOTE | 2016-12-23 09:33 | CR ---
Chest 1V Frontal HISTORY: tachycardia COMPARISON: 04/12/2013 FINDINGS: Portable chest, 2122 hours. Tip of the NG tube is in the distal esophagus. bus monitor lead wires overlie the chest. There i s blunting of the costophrenic angles bilaterally suggesting a small amount of pleural fluid. There is interstitial prominence right mid to lower chest and in the retrocardiac region left lower lobe. Appearance is nonspecific. This could be atelectasis or infiltrates. No vascular redistribution is n oted. Bony structures are stable. IMPRESSION: 1. Possible mild interstitial infiltrates versus atelectasis right mid to lower chest and retrocardi ac region left lower lobe. 2. Small bilateral pleural effusions. 3. Tip of the NG tube is in the distal esophagus.
--- NOTE | 2016-12-23 09:43 | CR ---
Abdomen 1V Flat HISTORY: increased abdominal pain COMPARISON: 12/15/2016 FINDINGS: There is interval surgery. There is mild gaseous prominence of small bowel loops and colon most suggestive for postoperative ileus. Midline skin marilee are noted. A safety pin overlies the lower abdomen. There is contrast in dilated left renal calyces and pelvis from earlier CT study. IMPRESSION: 1. Interval surgery. Midline skin marilee are noted. A safety pin overlies the lower mid abdomen. 2. Hydronephrosis left kidney with contrast in the pelvic calyceal collecting system from prior CT s tudy. Hydronephrosis was not present on the CT exam. Recommend clinical correlation. 3. Gaseous distention of small bowel loops and colon probably represents postoperative ileus.
[2016-12-23] MEDS: Dextrose 5%-Lactated Ringers 1,000 ML IV SCH (10:11)
--- NOTE | 2016-12-23 10:23 | CR ---
Abdomen 2V AP Flat Upright HISTORY: f/u ileus/obstruction FINDINGS: Right hydronephrosis with residual contrast in the pelvicalyceal collecting system appears similar to yesterday's exam. There is less gaseous distention of small bowel loops and colon sugges ting improving ileus. Midline skin marilee are redemonstrated. Safety pin overlies the lower left ab domen. Surgical drain and skin marilee are redemonstrated. Remainder the exam is unchanged. IMPRESSION: 1. Improving postoperative ileus. 2. Hydronephrosis right kidney is redemonstrated with residual contrast in the pelvic calyceal colle cting system from prior CT.
[2016-12-23] MEDS: HYDROmorphone/Normal Saline 15 MG/30 ML PCA IV PRN (11:16)
[2016-12-23] MEDS ORDERED: Lactated Ringers 1,000 ML IV SCH (17:47)
--- NOTE | 2016-12-23 17:56 | PCM.PN ---
- General Info Date of Service: 12/23/16 Functional Status: Reports: pain controlled, ambulating - Review of Systems General: Reports: Weakness, Fatigue. Denies: Fever, Chills Pulmonary: Reports: no symptoms Cardiovascular: Reports: No Symptoms Gastrointestinal: Reports: Abdominal pain. Denies: Difficulty swallowing, Nausea, Vomiting Systems Review Comment:: This patient has unfortunately been on stable over the past 24 hours with increased heart rate and decrease in blood pressures. He did receive fluids during the director of early childhood hours and with that blood pressure has improved but he remains tachycardic. Chest x-ray and urinalysis showed no evidence of significant infection. Abdominal exam this morning was felt to be unremarkable and a CT scan of the abdomen obtained yesterday showed no obvious source of infection. He is been placed on IV antibiotic therapy with Zyvox and meropenem. Urine output has been borderline throughout the day. - Patient Data Vitals - most recent: Last Vital Signs Temp 97.9 F 12/23/16 14:28 Pulse 127 H 12/23/16 14:42 Resp 20 12/23/16 14:28 BP 117/80 12/23/16 14:28 Pulse Ox 90 L 12/23/16 16:23 Weight - most recent: 146 lb 13.246 oz I&O - last 24 hours: Intake & Output 12/23/16 12/23/16 12/23/16 06:59 14:59 22:59 Intake Total 2745 400 1136 Output Total 400 390 Balance 2745 0 746 Lab Results last 24 hrs: Laboratory Results - last 24 hr 12/22/16 12/22/16 12/23/16 Range/Units 21:08 21:08 06:03 WBC 5.1 6.6 (4.5-11.0) K/uL RBC 4.94 4.31 (4.30-5.90) M/uL Hgb 12.5 D 10.9 L (12.0-15.0) g/dL Hct 39.4 L 34.7 L (40.0-54.0) % MCV 80 81 (80-98) fL MCH 25 L 25 L (27-31) pg MCHC 32 31 L (32-36) % Plt Count 181 137 L (150-400) K/uL Add Manual Diff Yes Neutrophils % (Manual) 36 (36-66) % Band Neutrophils % 59 H (5-11) % Lymphocytes % (Manual) 2 L (24-44) % Monocytes % (Manual) 3 (2-6) % Nucleated RBCs Sodium 138 L (140-148) mmol/L Potassium 5.0 (3.6-5.2) mmol/L Chloride 102 (100-108) mmol/L Carbon Dioxide 26 (21-32) mmol/L Anion Gap 15.0 H (5.0-14.0) mmol/L BUN 18 D (7-18) mg/dL Creatinine 1.4 H D (0.8-1.3) mg/dL Est Cr Clr Drug Dosing 51.54 mL/min Estimated GFR (MDRD) 51 L (>60) Glucose 98 (74-106) mg/dL Calcium 7.8 L (8.5-10.1) mg/dL Troponin I < 0.017 (0.000-0.056) ng/mL Urine Color Urine Appearance Urine pH (4.5-8.0) Ur Specific [place] (1.008-1.030) Urine Protein (NEGATIVE) mg/dL Urine Glucose (UA) (NEGATIVE) mg/dL Urine Ketones (NEGATIVE) mg/dL Urine Occult Blood (NEGATIVE) Urine Nitrite (NEGAITVE) Urine Bilirubin (NEGATIVE) Urine Urobilinogen (NORMAL) mg/dL Ur Leukocyte Esterase (NEGATIVE) Urine RBC (0-5) Urine WBC (0-5) Ur Epithelial Cells Amorphous Sediment Urine Bacteria Urine Mucus 12/23/16 12/23/16 Range/Units 06:03 07:09 WBC (4.5-11.0) K/uL RBC (4.30-5.90) M/uL Hgb (12.0-15.0) g/dL Hct (40.0-54.0) % MCV (80-98) fL MCH (27-31) pg MCHC (32-36) % Plt Count (150-400) K/uL Add Manual Diff Neutrophils % (Manual) (36-66) % Band Neutrophils % (5-11) % Lymphocytes % (Manual) (24-44) % Monocytes % (Manual) (2-6) % Nucleated RBCs Sodium 140 (140-148) mmol/L Potassium 4.9 (3.6-5.2) mmol/L Chloride 106 (100-108) mmol/L Carbon Dioxide 23 (21-32) mmol/L Anion Gap 10.9 (5.0-14.0) mmol/L BUN 22 H (7-18) mg/dL Creatinine 1.6 H (0.8-1.3) mg/dL Est Cr Clr Drug Dosing 45.09 mL/min Estimated GFR (MDRD) 44 L (>60) Glucose 103 (74-106) mg/dL Calcium 7.0 L (8.5-10.1) mg/dL Troponin I 0.020 (0.000-0.056) ng/mL Urine Color Yellow Urine Appearance Clear Urine pH 7.0 (4.5-8.0) Ur Specific [place] 1.005 L (1.008-1.030) Urine Protein Negative (NEGATIVE) mg/dL Urine Glucose (UA) Normal (NEGATIVE) mg/dL Urine Ketones Negative (NEGATIVE) mg/dL Urine Occult Blood Trace (NEGATIVE) Urine Nitrite Negative (NEGAITVE) Urine Bilirubin Negative (NEGATIVE) Urine Urobilinogen 1 (NORMAL) mg/dL Ur Leukocyte Esterase Negative (NEGATIVE) Urine RBC 0-5 (0-5) Urine WBC 0-5 (0-5) Ur Epithelial Cells Rare Amorphous Sediment Moderate Urine Bacteria Rare Urine Mucus Moderate Med Orders - Current: Current Medications Albuterol/Ipratropium (Duoneb 3.0-0.5 Mg/3 Ml) 3 ml INH QIDRT [facility] Last Admin: 12/23/16 14:42 Dose: 3 ml Albuterol/Ipratropium (Duoneb 3.0-0.5 Mg/3 Ml) 3 ml INH ASDIRECTED PRN PRN Reason: RESP DISTRESS Last Admin: 12/22/16 16:38 Dose: 3 ml Dexamethasone (Dexamethasone) 4 mg IVPUSH Q12H [facility] Last Admin: 12/23/16 08:51 Dose: 4 mg Enoxaparin Sodium (Lovenox) 40 mg SUBCUT DAILY [facility] Last Admin: 12/23/16 08:50 Dose: 40 mg Fentanyl (Duragesic) 25 mcg TRDERM Q72H [facility] Last Admin: 12/21/16 10:10 Dose: 25 mcg Hydromorphone HCl (Dilaudid Court Specialist 15 Mg In Ns 30 Ml) 0 mg IV ASDIRECTED PRN; Protocol PRN Reason: Pain Last Admin: 12/23/16 11:16 Dose: 15 mg Linezolid 600 mg/ Premix 300 mls @ 300 mls/hr IV Q12H [facility] Last Admin: 12/23/16 09:19 Dose: 300 mls/hr Meropenem 500 mg/ Sodium (Chloride) 50 mls @ 100 mls/hr IV Q6H [facility] Last Admin: 12/23/16 13:48 Dose: 100 mls/hr Lactated Ringer's (Ringers, Lactated) 1,000 mls @ 500 mls/hr IV ASDIRECTED [facility] Stop: 12/23/16 19:48 Lactated Ringer's (Ringers, Lactated) 1,000 mls @ 125 mls/hr IV ASDIRECTED [facility] Meclizine HCl (Antivert) 25 mg PO Q6H PRN PRN Reason: Dizziness Last Admin: 12/16/16 15:07 Dose: 25 mg Naloxone HCl (Narcan) 0.1 mg IVPUSH Q2M PRN PRN Reason: Respiratory Distress Verify Fent Patch 0 each TOP BID [facility] Last Admin: 12/23/16 08:53 Dose: Not Given Ondansetron HCl (Zofran Odt) 4 mg PO Q4H PRN PRN Reason: Nausea/Vomiting Phenol (Phenaseptic Liquid) 0 ml PO Q1H PRN PRN Reason: Sore Throat Discontinued Medications Bisacodyl (Dulcolax) 20 mg PO BID [facility] Last Admin: 12/21/16 08:28 Dose: Not Given Bupivacaine HCl (Marcaine 0.5%) Confirm Administered Dose 50 ml .ROUTE .STK-MED ONE Stop: 12/17/16 06:48 Last Admin: 12/17/16 07:34 Dose: 15 ml Carbamide Perox/Anhydrous Glycerin (Debrox 6.5% Otic Soln) 0 ml EARBOTH ONETIME ONE Stop: 12/21/16 10:31 Last Admin: 12/21/16 11:40 Dose: 4 drop Dexamethasone (Dexamethasone) 4 mg IVPUSH Q6H [facility] Last Admin: 12/15/16 14:29 Dose: 4 mg Dexamethasone (Dexamethasone) Confirm Administered Dose 4 mg .ROUTE .STK-MED ONE Stop: 12/15/16 08:53 Dexamethasone (Dexamethasone) 4 mg IVPUSH Q6H [facility] Last Admin: 12/21/16 02:16 Dose: 4 mg Dexamethasone (Dexamethasone) 4 mg PO Q6H [facility] Last Admin: 12/22/16 14:04 Dose: Not Given Enoxaparin Sodium (Lovenox) 40 mg SUBCUT DAILY [facility] Last Admin: 12/15/16 14:29 Dose: 40 mg Fentanyl (Sublimaze) Confirm Administered Dose 250 mcg .ROUTE .STK-MED ONE Stop: 12/15/16 08:52 Fentanyl (Sublimaze) Confirm Administered Dose 100 mcg .ROUTE .STK-MED ONE Stop: 12/15/16 11:08 Fentanyl (Sublimaze) 100 mcg IVPUSH ONETIME ONE Stop: 12/15/16 11:59 Last Admin: 12/15/16 12:08 Dose: 100 mcg Fentanyl (Sublimaze) Confirm Administered Dose 100 mcg .ROUTE .STK-MED ONE Stop: 12/17/16 07:10 Glycopyrrolate () Confirm Administered Dose 1 mg .ROUTE .STK-MED ONE Stop: 12/15/16 08:53 Hydromorphone HCl (Dilaudid Court Specialist 15 Mg In Ns 30 Ml) 0 mg IV ASDIRECTED PRN; Protocol PRN Reason: PERSONAL PROTECTION SPECIALIST PAIN CONTROL Last Admin: 12/20/16 12:55 Dose: 15 mg Hydromorphone HCl (Dilaudid) 1 mg IVPUSH Q2H PRN PRN Reason: Pain (severe 7-10) Stop: 12/22/16 11:30 Last Admin: 12/22/16 10:31 Dose: 1 mg Hydroxyzine HCl (Vistaril) 50 mg IM ONETIME ONE Stop: 12/15/16 12:18 Last Admin: 12/15/16 12:24 Dose: 50 mg Hydroxyzine HCl (Vistaril) 75 mg IM ONETIME ONE Stop: 12/22/16 01:55 Last Admin: 12/22/16 02:18 Dose: 75 mg Lactated Ringer's (Ringers, Lactated) 1,000 mls @ 125 mls/hr IV ASDIRECTED [facility] Last Admin: 12/15/16 07:46 Dose: 125 mls/hr Lactated Ringer's (Ringers, Lactated) 1,000 mls @ 333 mls/hr IV ASDIRECTED [facility] Stop: 12/14/16 12:16 Last Admin: 12/14/16 09:25 Dose: 333 mls/hr Cefoxitin Sodium 2 gm/ Sodium (Chloride) 50 mls @ 100 mls/hr IV ONETIME ONE Stop: 12/15/16 09:29 Last Admin: 12/15/16 08:53 Dose: 100 mls/hr Lactated Ringer's (Ringers, Lactated) Confirm Administered Dose 1,000 mls @ as directed .ROUTE .STK-MED ONE Stop: 12/15/16 09:15 Dextrose/Lactated Ringer's (Dextrose 5%-Lactated Ringers) 1,000 mls @ 200 mls/ hr IV ASDIRECTED [facility] Last Admin: 12/17/16 05:12 Dose: 200 mls/hr Cefoxitin Sodium 2 gm/ Sodium (Chloride) 50 mls @ 100 mls/hr IV Q6H [facility] Stop: 12/17/16 12:29 Last Admin: 12/17/16 12:13 Dose: 100 mls/hr Lactated Ringer's (Ringers, Lactated) 500 mls @ 500 mls/hr IV .BOLUS [facility] Last Admin: 12/15/16 23:14 Dose: 500 mls/hr Lactated Ringer's (Ringers, Lactated) 500 mls @ 500 mls/hr IV BOLUS ONE Stop: 12/16/16 00:02 Last Admin: 12/15/16 23:42 Dose: Not Given Lactated Ringer's (Ringers, Lactated) 500 mls @ 500 mls/hr IV BOLUS ONE Stop: 12/16/16 03:02 Last Admin: 12/16/16 02:05 Dose: 500 mls/hr Lactated Ringer's (Ringers, Lactated) 500 mls @ 500 mls/hr IV BOLUS ONE Stop: 12/16/16 06:41 Last Admin: 12/16/16 05:45 Dose: 500 mls/hr Potassium Phosphate 15 mmole/ (Sodium Chloride) 255 mls @ 125 mls/hr IV Q2H [facility] Stop: 12/16/16 13:59 Last Admin: 12/16/16 13:10 Dose: 125 mls/hr Lactated Ringer's (Ringers, Lactated) 500 mls @ 500 mls/hr IV .BOLUS ONE Stop: 12/16/16 15:29 Last Admin: 12/16/16 15:07 Dose: 500 mls/hr Acetaminophen (Ofirmev) Confirm Administered Dose 100 mls @ as directed IV .STK- MED ONE Stop: 12/17/16 07:45 Dextrose/Lactated Ringer's (Dextrose 5%-Lactated Ringers) 1,000 mls @ 100 mls/ hr IV ASDIRECTED [facility] Last Admin: 12/21/16 00:55 Dose: 100 mls/hr Albumin Human 12.5 gm/ Premix 50 mls @ 25 mls/hr IV Q24H [facility] Stop: 12/21/16 10:59 Last Admin: 12/21/16 08:32 Dose: 25 mls/hr Albumin Human 12.5 gm/ Premix 50 mls @ 25 mls/hr IV Q24H [facility] Stop: 12/21/16 12:59 Last Admin: 12/21/16 10:08 Dose: 25 mls/hr Albumin Human 12.5 gm/ Premix 50 mls @ 25 mls/hr IV Q24H [facility] Stop: 12/21/16 14:59 Last Admin: 12/21/16 13:03 Dose: 25 mls/hr Albumin Human 12.5 gm/ Premix 50 mls @ 25 mls/hr IV Q24H [facility] Stop: 12/21/16 16:59 Last Admin: 12/21/16 15:07 Dose: 25 mls/hr Magnesium Sulfate 2 gm/ Premix 50 mls @ 25 mls/hr IV Q6H [facility] Stop: 12/20/16 05:59 Last Admin: 12/20/16 04:07 Dose: 25 mls/hr Potassium Phosphate 20 mmole/ (Sodium Chloride) 256.6667 mls @ 86 mls/hr IV ONETIME ONE Stop: 12/17/16 12:59 Last Admin: 12/17/16 12:48 Dose: 86 mls/hr Potassium Phosphate 25 mmole/ (Sodium Chloride) 508.3333 mls @ 125 mls/hr IV ONETIME ONE Stop: 12/17/16 22:03 Last Admin: 12/17/16 18:21 Dose: 125 mls/hr Acetaminophen 1,000 mg/ Premix 100 mls @ 400 mls/hr IV Q6H [facility] Stop: 12/18/16 04:14 Last Admin: 12/18/16 03:28 Dose: 400 mls/hr Lidocaine HCl (Xylocaine-Mpf 1%) Confirm Administered Dose 2 mls @ as directed .ROUTE .STK-MED ONE Stop: 12/18/16 20:43 Sodium Chloride (Normal Saline) 1,000 mls @ 75 mls/hr IV ASDIRECTED [facility] Last Admin: 12/22/16 11:45 Dose: 75 mls/hr Sodium Chloride (Normal Saline) 100 mls @ 3.5 mls/sec IV ASDIRECTED [facility] Stop: 12/22/16 23:00 Last Admin: 12/22/16 11:27 Dose: 3.5 mls/sec Dextrose/Lactated Ringer's (Dextrose 5%-Lactated Ringers) 1,000 mls @ 125 mls/ hr IV ASDIRECTED [facility] Last Admin: 12/23/16 10:11 Dose: 75 mls/hr Sodium Chloride (Normal Saline) 500 mls @ 500 mls/hr IV .BOLUS ONE Stop: 12/22/16 21:54 Last Admin: 12/22/16 21:07 Dose: 500 mls/hr Sodium Chloride (Normal Saline) 1,000 mls @ 999 mls/hr IV .BOLUS ONE Stop: 12/22/16 23:01 Last Admin: 12/22/16 22:27 Dose: 999 mls/hr Sodium Chloride (Normal Saline) 500 mls @ 500 mls/hr IV .BOLUS ONE Stop: 12/23/16 06:07 Last Admin: 12/23/16 05:10 Dose: 500 mls/hr Ibuprofen (Motrin) 400 mg PO QID [facility] Last Admin: 12/22/16 17:13 Dose: Not Given Iopamidol (Isovue-300 (61%)) 99 ml IV . DIRECTED PRN PRN Reason: RADIOLOGY EXAM Stop: 12/23/16 10:52 Last Admin: 12/22/16 11:26 Dose: 100 ml Ketamine HCl (Ketalar) Confirm Administered Dose 500 mg .ROUTE .STK-MED ONE Stop: 12/15/16 10:10 Lidocaine HCl (Xylocaine 2% Jelly) 10 ml MUCMEM ONETIME ONE Stop: 12/23/16 05:57 Last Admin: 12/23/16 06:03 Dose: 10 ml Lidocaine/Epinephrine (Xylocaine 1% With Epinephrine 1:100,000) Confirm Administered Dose 50 ml .ROUTE .STK-MED ONE Stop: 12/17/16 06:48 Last Admin: 12/17/16 07:34 Dose: 15 ml Magnesium Citrate (Citrate Of Magnesia) 287 ml PO ONETIME ONE Stop: 12/19/16 09:01 Last Admin: 12/19/16 08:51 Dose: 287 ml Magnesium Citrate (Citrate Of Magnesia) 287 ml PO ONETIME ONE Stop: 12/20/16 09:01 Last Admin: 12/20/16 08:35 Dose: 287 ml Meperidine HCl (Demerol) 75 mg IM ONETIME ONE Stop: 12/22/16 01:56 Last Admin: 12/22/16 02:17 Dose: 75 mg Meropenem (Merrem) Confirm Administered Dose 500 mg .ROUTE .STK-MED ONE Stop: 12/15/16 10:51 Last Admin: 12/16/16 09:16 Dose: 500 mg Meropenem (Merrem) Confirm Administered Dose 500 mg .ROUTE .STK-MED ONE Stop: 12/17/16 06:48 Last Admin: 12/17/16 07:30 Dose: 500 mg Methylprednisolone Sodium Succinate (Solu-Medrol) 60 mg IVPUSH ONETIME ONE Stop: 12/15/16 09:01 Last Admin: 12/15/16 08:51 Dose: 60 mg Midazolam HCl (Versed 1 Mg/Ml) Confirm Administered Dose 2 mg .ROUTE .STK-MED ONE Stop: 12/15/16 08:52 Midazolam HCl (Versed 1 Mg/Ml) Confirm Administered Dose 2 mg .ROUTE .STK-MED ONE Stop: 12/17/16 07:10 Naloxone HCl (Narcan) 0.1 mg IV ASDIRECTED PRN PRN Reason: decreased respiratory rate Neostigmine Methylsulfate (Neostigmine) Confirm Administered Dose 5 mg .ROUTE .STK-MED ONE Stop: 12/15/16 08:53 Ondansetron HCl (Zofran) 4 mg IV Q4H PRN PRN Reason: Nausea/Vomiting Last Admin: 12/20/16 02:41 Dose: 4 mg Ondansetron HCl (Zofran) Confirm Administered Dose 4 mg .ROUTE .STK-MED ONE Stop: 12/15/16 08:53 Oxycodone/Acetaminophen (Percocet 325-5 Mg) 1 - 2 tab PO Q4H PRN PRN Reason: PAIN Last Admin: 12/22/16 07:42 Dose: 2 tab Pantoprazole Sodium (Protonix Iv) 40 mg IVPUSH DAILY [facility] Last Admin: 12/21/16 10:08 Dose: 40 mg Pantoprazole Sodium (Protonix) 40 mg PO ACBREAKFAST [facility] Last Admin: 12/22/16 07:31 Dose: 40 mg Propofol (Diprivan 20 Ml) Confirm Administered Dose 200 mg .ROUTE .STK-MED ONE Stop: 12/15/16 08:53 Propofol (Diprivan 20 Ml) Confirm Administered Dose 200 mg .ROUTE .STK-MED ONE Stop: 12/17/16 07:10 Rocuronium [place] (Zemuron) Confirm Administered Dose 50 mg .ROUTE .STK-MED ONE Stop: 12/15/16 08:53 Sodium Chloride (Saline Flush) 10 ml FLUSH ASDIRECTED PRN PRN Reason: Keep Vein Open Sodium Chloride (Saline Flush) 10 ml FLUSH ASDIRECTED PRN PRN Reason: Keep Vein Open Stop: 12/22/16 23:00 Last Admin: 12/22/16 11:27 Dose: 10 ml Succinylcholine Chloride (Succinylcholine In Ns Pf) Confirm Administered Dose 200 mg .ROUTE .STK-MED ONE Stop: 12/15/16 08:53 Succinylcholine Chloride (Succinylcholine In Ns Pf) Confirm Administered Dose 200 mg .ROUTE .STK-MED ONE Stop: 12/15/16 11:10 - Exam Quality Assessment: supplemental oxygen, urine catheter, DVT prophylaxis General: alert, cooperative, mild distress Lungs: Clear to auscultation, Normal respiratory effort Cardiovascular: Regular Rhythm, No Murmurs, Tachycardia. No: Irregular Rhythm, Bradycardia Abdomen: soft, tenderness, distension. No: rigidity, rebound, guarding Extremities: edema Skin: warm, dry, intact - Problem List Review Problem List Initiated/Reviewed/Updated: Yes - My Orders Last 24 Hours: My Active Orders 12/22/16 20:58 EKG 12 Lead [EK] Routine 12/23/16 15:14 EKG 12 Lead [EK] Stat 12/23/16 17:35 LACTIC ACID [CHEM] Stat 12/23/16 17:36 BASIC METABOLIC PANEL,BMP [CHEM] Stat 12/23/16 17:37 Cardiac Monitoring [RC] .As Directed 12/23/16 17:47 Lactated Ringers [Ringers, Lactated] 1,000 ml IV ASDIRECTED 12/23/16 19:45 Lactated Ringers @ 125 MLS/HR(1000ml) Lactated Ringers [Ringers, Lactated] 1, 000 ml IV ASDIRECTED - Plan Plan:: ASSESSMENT AND PLAN - Acute abdominal pain and hemodynamic instability-blood pressure did respond to increased fluid infusion, evaluation has been negative for potential source of infection. 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 status -Transfer to the intensive care unit for more close observation and management Impaired hearing, acute on chronic - patient has known metastatic disease to the brain, significant hearing impairment is felt to be secondary to his current brain tumor. -Continue current therapy with dexamethasone
[2016-12-23] MEDS: Lactated Ringers 1,000 ML IV SCH (21:33)
--- NOTE | 2016-12-23 22:11 | PN ---
DATE OF SERVICE: 12/22/2016 The patient has been afebrile with stable vital signs. Pain control remained somewhat of an issue. I would like to continue with the present regimen and add some ibuprofen as scheduled. home care at this point, and he may be ready for discharge home tomorrow. Richie Armenta MD /[id number]
[2016-12-23] MEDS: Labetalol 20 MG/4 ML Syringe IVPUSH PRN (22:24)
--- NOTE | 2016-12-23 22:50 | OR ---
DATE OF PROCEDURE: 12/17/2016 PREOPERATIVE DIAGNOSIS: Open abdominal incision. POSTOPERATIVE DIAGNOSIS: Open abdominal incision. OPERATIVE PROCEDURE: Delayed primary closure of open abdominal incision. ANESTHESIA: Local plus IV sedation. INDICATION FOR PROCEDURE: The patient is 48 hours status post open laparotomy with small bowel resection and decompression of the distended small bowel with some inherent contamination. The patient is to undergo a delayed primary closure at this time with the wound previously being left open to minimize chances of wound infection. Potential risks including bleeding and infection were reviewed, and the patient wishes to proceed. DETAILS OF PROCEDURE: The patient was taken to the operating room and placed in the supine position. IV sedation was administered, after which the operative dressing was taken down and the incision inspected and it was found to be clean. The incision was then prepped and draped, anesthetized with 1% lidocaine, mixed with Marcaine and irrigated with meropenem- containing saline solution. A 10-Omani Arthur-Lopez drain was then placed through a stab wound inferior to the incision across the bed of the incision. The incision was then closed with 3-0 and 4-0 Vicryl stitch deep and then marilee for the skin. The drain was affixed with 4-0 Vicryl stitch. The patient was taken to the recovery room in satisfactory condition. There were no evident complications. Richie Armenta MD /[id number]
[2016-12-24] MEDS: Lactated Ringers 1,000 ML IV SCH ×2 (01:07→08:52)
[2016-12-24] MEDS: Albuterol/Ipratropium 3.0-0.5 MG/3 ML Neb Soln INH PRN (01:27)
[2016-12-24] MEDS: Labetalol 20 MG/4 ML Syringe IVPUSH PRN ×3 (01:50→23:13)
[2016-12-24] MEDS: Meropenem 500 MG in Sodium Chloride 0.9% 50 ML IV SCH ×4 (02:03→20:14)
[2016-12-24] MEDS: Albuterol/Ipratropium 3.0-0.5 MG/3 ML Neb Soln INH SCH ×4 (07:21→22:08)
[2016-12-24] MEDS: Linezolid 600 MG in Premix Bag 1 BAG IV SCH ×2 (08:40→20:37)
[2016-12-24] MEDS: Enoxaparin 40 MG/0.4 ML Syringe SUBCUT SCH (08:41)
[2016-12-24] MEDS: Dexamethasone 4 MG/ML SDV IVPUSH SCH ×2 (08:41→20:35)
--- NOTE | 2016-12-24 08:59 | CR ---
Abdomen 1V Flat HISTORY: distention FINDINGS: Portable abdomen, 0359 hours. On gaseous prominence of small bowel loops and colon is redemonstrated suggesting postoperative ileu s. There is mild improvement compared to yesterday's exam. NG tube position in the stomach is satisfactory. Midline skin marilee are redemonstrated. Surgical d rain overlies the lower abdomen. There is still contrast remaining in dilated right renal pelvis and calyces suggesting right UPJ obstruction. This could be chronic. Contrast is somewhat more dilute o n today's exam. Remainder of the abdomen is stable. IMPRESSION: 1. Probable postoperative ileus with mild improvement since yesterday's exam. 2. Right UPJ obstruction. There are still dilute contrast in the dilated right renal pelvis and chacho nestor.
--- NOTE | 2016-12-24 09:14 | CR ---
Chest 1V Frontal HISTORY: low Sats COMPARISON: 12/22/2016 FINDINGS: Portable chest, 0751 hours. NG tube position in the stomach is now satisfactory. Patchy infiltrates bilaterally have increased s iveth yesterday's exam, particularly on the right. Heart appears mildly enlarged. There is pleural fl uid on the right. Pleural fluid may be increased. Remainder the exam is unchanged. IMPRESSION: Increased patchy interstitial prominence bilaterally since yesterday's exam could be inf iltrates or interstitial edema. There is mild cardiomegaly with mild interval increase in heart size . Right pleural fluid can be seen. Recommend clinical correlation for possible CHF and/or pneumonia. NG tube placement appears satisfactory.
[2016-12-24] MEDS: fentaNYL 25 MCG/HR Transdermal Patch TRDERM SCH (09:31)
[2016-12-24] MEDS: VERIFY FENT PATCH TOP SCH ×2 (09:32→22:07)
[2016-12-24] MEDS ORDERED: Calcium Gluconate 2 GM in Sodium Chloride 0.9% 100 ML IV ONE (09:52)
--- NOTE | 2016-12-24 10:28 | PCM.PN ---
- General Info Date of Service: 12/24/16 Functional Status: Reports: pain controlled - Review of Systems General: Reports: Weakness. Denies: Fever, Chills Pulmonary: Reports: shortness of breath. Denies: pleuritic chest pain, cough, sputum, hemoptysis, wheezing Cardiovascular: Reports: Dyspnea on Exertion, Edema. Denies: Chest Pain, Palpitations, Orthopnea, PND Gastrointestinal: Reports: Abdominal pain. Denies: Difficulty swallowing, Flatus, Nausea, Vomiting Systems Review Comment:: This patient has become somewhat more stable over the past 24 hours, blood pressures better range and tachycardia has improved but not totally resolved. His receive significant IV fluid infusion over the past 24 hours, now unfortunately has become more short of breath and hypoxic. Chest x-ray from this morning shows evidence of increased infiltrates versus pulmonary edema. He has remained afebrile and his white blood cell count remains within normal range. - Patient Data Vitals - most recent: Last Vital Signs Temp 98.3 F 12/24/16 08:00 Pulse 111 H 12/24/16 07:22 Resp 10 L 12/24/16 09:00 BP 138/102 H 12/24/16 09:00 Pulse Ox 90 L 12/24/16 09:00 Weight - most recent: 146 lb 13.246 oz I&O - last 24 hours: Intake & Output 12/23/16 12/24/16 12/24/16 22:59 06:59 14:59 Intake Total 1136 3149 Output Total 540 200 65 Balance 596 2949 -65 Lab Results last 24 hrs: Laboratory Results - last 24 hr 12/23/16 12/23/16 12/24/16 Range/Units 17:48 17:48 04:00 WBC (4.5-11.0) K/uL RBC (4.30-5.90) M/uL Hgb (12.0-15.0) g/dL Hct (40.0-54.0) % MCV (80-98) fL MCH (27-31) pg MCHC (32-36) % Plt Count (150-400) K/uL Sodium 138 L (140-148) mmol/L Potassium 5.2 (3.6-5.2) mmol/L Chloride 105 (100-108) mmol/L Carbon Dioxide 26 (21-32) mmol/L Anion Gap 12.2 (5.0-14.0) mmol/L BUN 26 H (7-18) mg/dL Creatinine 1.7 H (0.8-1.3) mg/dL Est Cr Clr Drug Dosing 42.44 mL/min Estimated GFR (MDRD) 41 L (>60) Glucose 152 H (74-106) mg/dL Lactic Acid 2.8 H (0.4-2.0) mmol/L Calcium 7.2 L (8.5-10.1) mg/dL POC WB Ioniz Calcium (1.12-1.32) mmol/L Phosphorus (2.5-4.9) mg/dL Magnesium (1.8-2.4) mg/dL Total Bilirubin (0.2-1.0) mg/dL AST (15-37) U/L ALT (12-78) U/L Alkaline Phosphatase (46-116) U/L [id number] Pept 2502 H (5-125) pg/mL Total Protein (6.4-8.2) g/dL Albumin (3.4-5.0) g/dL Globulin (2.3-3.5) g/dL Albumin/Globulin Ratio (1.2-2.2) 12/24/16 12/24/16 12/24/16 Range/Units 04:33 04:33 09:27 WBC 5.0 (4.5-11.0) K/uL RBC 3.86 L (4.30-5.90) M/uL Hgb 9.6 L (12.0-15.0) g/dL Hct 31.2 L (40.0-54.0) % MCV 81 (80-98) fL MCH 25 L (27-31) pg MCHC 31 L (32-36) % Plt Count 110 L (150-400) K/uL Sodium 138 L (140-148) mmol/L Potassium 5.4 H (3.6-5.2) mmol/L Chloride 106 (100-108) mmol/L Carbon Dioxide 26 (21-32) mmol/L Anion Gap 11.4 (5.0-14.0) mmol/L BUN 26 H (7-18) mg/dL Creatinine 1.5 H (0.8-1.3) mg/dL Est Cr Clr Drug Dosing 48.10 mL/min Estimated GFR (MDRD) 47 L (>60) Glucose 101 (74-106) mg/dL Lactic Acid (0.4-2.0) mmol/L Calcium 6.9 L* (8.5-10.1) mg/dL POC WB Ioniz Calcium 0.99 L* (1.12-1.32) mmol/L Phosphorus 2.9 (2.5-4.9) mg/dL Magnesium 2.3 (1.8-2.4) mg/dL Total Bilirubin 0.7 (0.2-1.0) mg/dL AST 32 D (15-37) U/L ALT 37 D (12-78) U/L Alkaline Phosphatase 61 (46-116) U/L [id number] Pept (5-125) pg/mL Total Protein 4.6 L (6.4-8.2) g/dL Albumin 1.9 L (3.4-5.0) g/dL Globulin 2.7 (2.3-3.5) g/dL Albumin/Globulin Ratio 0.7 L (1.2-2.2) Ed Results last 24 hrs: Microbiology 12/23/16 06:58 Aerobic Blood Culture - Preliminary Blood - Arm, Right NO GROWTH AFTER 1 DAY Anaerobic Blood Culture - Preliminary 12/23/16 06:50 Aerobic Blood Culture - Preliminary Blood - Arm, Right NO GROWTH AFTER 1 DAY Anaerobic Blood Culture - Preliminary Med Orders - Current: Current Medications Albuterol/Ipratropium (Duoneb 3.0-0.5 Mg/3 Ml) 3 ml INH QIDRT [facility] Last Admin: 12/24/16 07:21 Dose: 3 ml Albuterol/Ipratropium (Duoneb 3.0-0.5 Mg/3 Ml) 3 ml INH ASDIRECTED PRN PRN Reason: RESP DISTRESS Last Admin: 12/24/16 01:27 Dose: 3 ml Dexamethasone (Dexamethasone) 4 mg IVPUSH Q12H [facility] Last Admin: 12/24/16 08:41 Dose: 4 mg Enoxaparin Sodium (Lovenox) 40 mg SUBCUT DAILY [facility] Last Admin: 12/24/16 08:41 Dose: 40 mg Fentanyl (Duragesic) 25 mcg TRDERM Q72H [facility] Last Admin: 12/24/16 09:31 Dose: 25 mcg Hydromorphone HCl (Dilaudid Tafe Teacher 15 Mg In Ns 30 Ml) 0 mg IV ASDIRECTED PRN; Protocol PRN Reason: Pain Last Admin: 12/23/16 11:16 Dose: 15 mg Linezolid 600 mg/ Premix 300 mls @ 300 mls/hr IV Q12H [facility] Last Admin: 12/24/16 08:40 Dose: 300 mls/hr Meropenem 500 mg/ Sodium (Chloride) 50 mls @ 100 mls/hr IV Q6H [facility] Last Admin: 12/24/16 08:06 Dose: 100 mls/hr Lactated Ringer's (Ringers, Lactated) 1,000 mls @ 25 mls/hr IV ASDIRECTED [facility] Last Admin: 12/24/16 08:52 Dose: 125 mls/hr Albumin Human 12.5 gm/ Premix 50 mls @ 25 mls/hr IV Q24H [facility] Stop: 12/26/16 10:59 Albumin Human 12.5 gm/ Premix 50 mls @ 25 mls/hr IV Q24H [facility] Stop: 12/26/16 12:59 Albumin Human 12.5 gm/ Premix 50 mls @ 25 mls/hr IV Q24H [facility] Stop: 12/26/16 14:59 Albumin Human 12.5 gm/ Premix 50 mls @ 25 mls/hr IV Q24H [facility] Stop: 12/26/16 16:59 Erythromycin Lactobionate 125 (mg/ Sodium Chloride) 100 mls @ 100 mls/hr IV Q8H [facility] Calcium Gluconate 2 gm/ Sodium (Chloride) 120 mls @ 100 mls/hr IV ONETIME ONE Stop: 12/24/16 11:03 Labetalol HCl (Normodyne) 20 mg IVPUSH Q4H PRN PRN Reason: blood pressure Last Admin: 12/24/16 01:50 Dose: 20 mg Meclizine HCl (Antivert) 25 mg PO Q6H PRN PRN Reason: Dizziness Last Admin: 12/16/16 15:07 Dose: 25 mg Naloxone HCl (Narcan) 0.1 mg IVPUSH Q2M PRN PRN Reason: Respiratory Distress Verify Fent Patch 0 each TOP BID [facility] Last Admin: 12/24/16 09:32 Dose: Not Given Ondansetron HCl (Zofran Odt) 4 mg PO Q4H PRN PRN Reason: Nausea/Vomiting Phenol (Phenaseptic Liquid) 0 ml PO Q1H PRN PRN Reason: Sore Throat Discontinued Medications Bisacodyl (Dulcolax) 20 mg PO BID [facility] Last Admin: 12/21/16 08:28 Dose: Not Given Bupivacaine HCl (Marcaine 0.5%) Confirm Administered Dose 50 ml .ROUTE .STK-MED ONE Stop: 12/17/16 06:48 Last Admin: 12/17/16 07:34 Dose: 15 ml Carbamide Perox/Anhydrous Glycerin (Debrox 6.5% Otic Soln) 0 ml EARBOTH ONETIME ONE Stop: 12/21/16 10:31 Last Admin: 12/21/16 11:40 Dose: 4 drop Dexamethasone (Dexamethasone) 4 mg IVPUSH Q6H [facility] Last Admin: 12/15/16 14:29 Dose: 4 mg Dexamethasone (Dexamethasone) Confirm Administered Dose 4 mg .ROUTE .STK-MED ONE Stop: 12/15/16 08:53 Dexamethasone (Dexamethasone) 4 mg IVPUSH Q6H [facility] Last Admin: 12/21/16 02:16 Dose: 4 mg Dexamethasone (Dexamethasone) 4 mg PO Q6H [facility] Last Admin: 12/22/16 14:04 Dose: Not Given Enoxaparin Sodium (Lovenox) 40 mg SUBCUT DAILY [facility] Last Admin: 12/15/16 14:29 Dose: 40 mg Fentanyl (Sublimaze) Confirm Administered Dose 250 mcg .ROUTE .STK-MED ONE Stop: 12/15/16 08:52 Fentanyl (Sublimaze) Confirm Administered Dose 100 mcg .ROUTE .STK-MED ONE Stop: 12/15/16 11:08 Fentanyl (Sublimaze) 100 mcg IVPUSH ONETIME ONE Stop: 12/15/16 11:59 Last Admin: 12/15/16 12:08 Dose: 100 mcg Fentanyl (Sublimaze) Confirm Administered Dose 100 mcg .ROUTE .STK-MED ONE Stop: 12/17/16 07:10 Glycopyrrolate () Confirm Administered Dose 1 mg .ROUTE .STK-MED ONE Stop: 12/15/16 08:53 Hydromorphone HCl (Dilaudid Tafe Teacher 15 Mg In Ns 30 Ml) 0 mg IV ASDIRECTED PRN; Protocol PRN Reason: BIOLOGY INTERN PAIN CONTROL Last Admin: 12/20/16 12:55 Dose: 15 mg Hydromorphone HCl (Dilaudid) 1 mg IVPUSH Q2H PRN PRN Reason: Pain (severe 7-10) Stop: 12/22/16 11:30 Last Admin: 12/22/16 10:31 Dose: 1 mg Hydroxyzine HCl (Vistaril) 50 mg IM ONETIME ONE Stop: 12/15/16 12:18 Last Admin: 12/15/16 12:24 Dose: 50 mg Hydroxyzine HCl (Vistaril) 75 mg IM ONETIME ONE Stop: 12/22/16 01:55 Last Admin: 12/22/16 02:18 Dose: 75 mg Lactated Ringer's (Ringers, Lactated) 1,000 mls @ 125 mls/hr IV ASDIRECTED [facility] Last Admin: 12/15/16 07:46 Dose: 125 mls/hr Lactated Ringer's (Ringers, Lactated) 1,000 mls @ 333 mls/hr IV ASDIRECTED [facility] Stop: 12/14/16 12:16 Last Admin: 12/14/16 09:25 Dose: 333 mls/hr Cefoxitin Sodium 2 gm/ Sodium (Chloride) 50 mls @ 100 mls/hr IV ONETIME ONE Stop: 12/15/16 09:29 Last Admin: 12/15/16 08:53 Dose: 100 mls/hr Lactated Ringer's (Ringers, Lactated) Confirm Administered Dose 1,000 mls @ as directed .ROUTE .STK-MED ONE Stop: 12/15/16 09:15 Dextrose/Lactated Ringer's (Dextrose 5%-Lactated Ringers) 1,000 mls @ 200 mls/ hr IV ASDIRECTED [facility] Last Admin: 12/17/16 05:12 Dose: 200 mls/hr Cefoxitin Sodium 2 gm/ Sodium (Chloride) 50 mls @ 100 mls/hr IV Q6H [facility] Stop: 12/17/16 12:29 Last Admin: 12/17/16 12:13 Dose: 100 mls/hr Lactated Ringer's (Ringers, Lactated) 500 mls @ 500 mls/hr IV .BOLUS [facility] Last Admin: 12/15/16 23:14 Dose: 500 mls/hr Lactated Ringer's (Ringers, Lactated) 500 mls @ 500 mls/hr IV BOLUS ONE Stop: 12/16/16 00:02 Last Admin: 12/15/16 23:42 Dose: Not Given Lactated Ringer's (Ringers, Lactated) 500 mls @ 500 mls/hr IV BOLUS ONE Stop: 12/16/16 03:02 Last Admin: 12/16/16 02:05 Dose: 500 mls/hr Lactated Ringer's (Ringers, Lactated) 500 mls @ 500 mls/hr IV BOLUS ONE Stop: 12/16/16 06:41 Last Admin: 12/16/16 05:45 Dose: 500 mls/hr Potassium Phosphate 15 mmole/ (Sodium Chloride) 255 mls @ 125 mls/hr IV Q2H [facility] Stop: 12/16/16 13:59 Last Admin: 12/16/16 13:10 Dose: 125 mls/hr Lactated Ringer's (Ringers, Lactated) 500 mls @ 500 mls/hr IV .BOLUS ONE Stop: 12/16/16 15:29 Last Admin: 12/16/16 15:07 Dose: 500 mls/hr Acetaminophen (Ofirmev) Confirm Administered Dose 100 mls @ as directed IV .STK- MED ONE Stop: 12/17/16 07:45 Dextrose/Lactated Ringer's (Dextrose 5%-Lactated Ringers) 1,000 mls @ 100 mls/ hr IV ASDIRECTED [facility] Last Admin: 12/21/16 00:55 Dose: 100 mls/hr Albumin Human 12.5 gm/ Premix 50 mls @ 25 mls/hr IV Q24H [facility] Stop: 12/21/16 10:59 Last Admin: 12/21/16 08:32 Dose: 25 mls/hr Albumin Human 12.5 gm/ Premix 50 mls @ 25 mls/hr IV Q24H [facility] Stop: 12/21/16 12:59 Last Admin: 12/21/16 10:08 Dose: 25 mls/hr Albumin Human 12.5 gm/ Premix 50 mls @ 25 mls/hr IV Q24H [facility] Stop: 12/21/16 14:59 Last Admin: 12/21/16 13:03 Dose: 25 mls/hr Albumin Human 12.5 gm/ Premix 50 mls @ 25 mls/hr IV Q24H [facility] Stop: 12/21/16 16:59 Last Admin: 12/21/16 15:07 Dose: 25 mls/hr Magnesium Sulfate 2 gm/ Premix 50 mls @ 25 mls/hr IV Q6H [facility] Stop: 12/20/16 05:59 Last Admin: 12/20/16 04:07 Dose: 25 mls/hr Potassium Phosphate 20 mmole/ (Sodium Chloride) 256.6667 mls @ 86 mls/hr IV ONETIME ONE Stop: 12/17/16 12:59 Last Admin: 12/17/16 12:48 Dose: 86 mls/hr Potassium Phosphate 25 mmole/ (Sodium Chloride) 508.3333 mls @ 125 mls/hr IV ONETIME ONE Stop: 12/17/16 22:03 Last Admin: 12/17/16 18:21 Dose: 125 mls/hr Acetaminophen 1,000 mg/ Premix 100 mls @ 400 mls/hr IV Q6H [facility] Stop: 12/18/16 04:14 Last Admin: 12/18/16 03:28 Dose: 400 mls/hr Lidocaine HCl (Xylocaine-Mpf 1%) Confirm Administered Dose 2 mls @ as directed .ROUTE .STK-MED ONE Stop: 12/18/16 20:43 Sodium Chloride (Normal Saline) 1,000 mls @ 75 mls/hr IV ASDIRECTED [facility] Last Admin: 12/22/16 11:45 Dose: 75 mls/hr Sodium Chloride (Normal Saline) 100 mls @ 3.5 mls/sec IV ASDIRECTED [facility] Stop: 12/22/16 23:00 Last Admin: 12/22/16 11:27 Dose: 3.5 mls/sec Dextrose/Lactated Ringer's (Dextrose 5%-Lactated Ringers) 1,000 mls @ 125 mls/ hr IV ASDIRECTED [facility] Last Admin: 12/23/16 10:11 Dose: 75 mls/hr Sodium Chloride (Normal Saline) 500 mls @ 500 mls/hr IV .BOLUS ONE Stop: 12/22/16 21:54 Last Admin: 12/22/16 21:07 Dose: 500 mls/hr Sodium Chloride (Normal Saline) 1,000 mls @ 999 mls/hr IV .BOLUS ONE Stop: 12/22/16 23:01 Last Admin: 12/22/16 22:27 Dose: 999 mls/hr Sodium Chloride (Normal Saline) 500 mls @ 500 mls/hr IV .BOLUS ONE Stop: 12/23/16 06:07 Last Admin: 12/23/16 05:10 Dose: 500 mls/hr Lactated Ringer's (Ringers, Lactated) 1,000 mls @ 500 mls/hr IV ASDIRECTED [facility] Stop: 12/23/16 19:48 Last Admin: 12/23/16 18:38 Dose: 500 mls/hr Ibuprofen (Motrin) 400 mg PO QID [facility] Last Admin: 12/22/16 17:13 Dose: Not Given Iopamidol (Isovue-300 (61%)) 99 ml IV . DIRECTED PRN PRN Reason: RADIOLOGY EXAM Stop: 12/23/16 10:52 Last Admin: 12/22/16 11:26 Dose: 100 ml Ketamine HCl (Ketalar) Confirm Administered Dose 500 mg .ROUTE .STK-MED ONE Stop: 12/15/16 10:10 Lidocaine HCl (Xylocaine 2% Jelly) 10 ml MUCMEM ONETIME ONE Stop: 12/23/16 05:57 Last Admin: 12/23/16 06:03 Dose: 10 ml Lidocaine/Epinephrine (Xylocaine 1% With Epinephrine 1:100,000) Confirm Administered Dose 50 ml .ROUTE .STK-MED ONE Stop: 12/17/16 06:48 Last Admin: 12/17/16 07:34 Dose: 15 ml Magnesium Citrate (Citrate Of Magnesia) 287 ml PO ONETIME ONE Stop: 12/19/16 09:01 Last Admin: 12/19/16 08:51 Dose: 287 ml Magnesium Citrate (Citrate Of Magnesia) 287 ml PO ONETIME ONE Stop: 12/20/16 09:01 Last Admin: 12/20/16 08:35 Dose: 287 ml Meperidine HCl (Demerol) 75 mg IM ONETIME ONE Stop: 12/22/16 01:56 Last Admin: 12/22/16 02:17 Dose: 75 mg Meropenem (Merrem) Confirm Administered Dose 500 mg .ROUTE .STK-MED ONE Stop: 12/15/16 10:51 Last Admin: 12/16/16 09:16 Dose: 500 mg Meropenem (Merrem) Confirm Administered Dose 500 mg .ROUTE .STK-MED ONE Stop: 12/17/16 06:48 Last Admin: 12/17/16 07:30 Dose: 500 mg Methylprednisolone Sodium Succinate (Solu-Medrol) 60 mg IVPUSH ONETIME ONE Stop: 12/15/16 09:01 Last Admin: 12/15/16 08:51 Dose: 60 mg Midazolam HCl (Versed 1 Mg/Ml) Confirm Administered Dose 2 mg .ROUTE .STK-MED ONE Stop: 12/15/16 08:52 Midazolam HCl (Versed 1 Mg/Ml) Confirm Administered Dose 2 mg .ROUTE .STK-MED ONE Stop: 12/17/16 07:10 Naloxone HCl (Narcan) 0.1 mg IV ASDIRECTED PRN PRN Reason: decreased respiratory rate Neostigmine Methylsulfate (Neostigmine) Confirm Administered Dose 5 mg .ROUTE .STK-MED ONE Stop: 12/15/16 08:53 Ondansetron HCl (Zofran) 4 mg IV Q4H PRN PRN Reason: Nausea/Vomiting Last Admin: 12/20/16 02:41 Dose: 4 mg Ondansetron HCl (Zofran) Confirm Administered Dose 4 mg .ROUTE .STK-MED ONE Stop: 12/15/16 08:53 Oxycodone/Acetaminophen (Percocet 325-5 Mg) 1 - 2 tab PO Q4H PRN PRN Reason: PAIN Last Admin: 12/22/16 07:42 Dose: 2 tab Pantoprazole Sodium (Protonix Iv) 40 mg IVPUSH DAILY [facility] Last Admin: 12/21/16 10:08 Dose: 40 mg Pantoprazole Sodium (Protonix) 40 mg PO ACBREAKFAST [facility] Last Admin: 12/22/16 07:31 Dose: 40 mg Propofol (Diprivan 20 Ml) Confirm Administered Dose 200 mg .ROUTE .STK-MED ONE Stop: 12/15/16 08:53 Propofol (Diprivan 20 Ml) Confirm Administered Dose 200 mg .ROUTE .STK-MED ONE Stop: 12/17/16 07:10 Rocuronium [place] (Zemuron) Confirm Administered Dose 50 mg .ROUTE .STK-MED ONE Stop: 12/15/16 08:53 Sodium Chloride (Saline Flush) 10 ml FLUSH ASDIRECTED PRN PRN Reason: Keep Vein Open Sodium Chloride (Saline Flush) 10 ml FLUSH ASDIRECTED PRN PRN Reason: Keep Vein Open Stop: 12/22/16 23:00 Last Admin: 12/22/16 11:27 Dose: 10 ml Succinylcholine Chloride (Succinylcholine In Ns Pf) Confirm Administered Dose 200 mg .ROUTE .STK-MED ONE Stop: 12/15/16 08:53 Succinylcholine Chloride (Succinylcholine In Ns Pf) Confirm Administered Dose 200 mg .ROUTE .STK-MED ONE Stop: 12/15/16 11:10 - Exam Quality Assessment: supplemental oxygen, urine catheter, DVT prophylaxis General: alert, cooperative, mild distress Lungs: Rales. No: Crackles, Rhonchi, Wheezing Cardiovascular: Regular Rhythm, No Murmurs, Tachycardia. No: Irregular Rhythm, Bradycardia Abdomen: soft, no distension, tenderness, abnormal bowel sounds. No: rigidity, rebound, guarding Extremities: edema Skin: warm, dry, intact - Problem List Review Problem List Initiated/Reviewed/Updated: Yes - My Orders Last 24 Hours: My Active Orders 12/23/16 15:14 EKG 12 Lead [EK] Stat 12/23/16 19:49 Lactated Ringers [Ringers, Lactated] 1,000 ml IV ASDIRECTED 12/23/16 22:02 Labetalol [Normodyne] 20 mg IVPUSH Q4H PRN 12/24/16 09:48 Chest wo Cont [CT] Stat 12/24/16 09:52 Calcium Gluconate 2 gm Sodium Chloride 0.9% [Normal Saline] 100 ml IV ONETIME 12/25/16 05:00 CALCIUM IONIZED,ISTAT [POC] Routine - Plan Plan:: ASSESSMENT AND PLAN - Acute abdominal pain and hemodynamic instability-blood pressure did respond to increased fluid infusion, evaluation has been negative for potential source of infection. -NG tube -IV fluids at TKO until CT scan of the chest is available -Continue current IV antibiotic therapy with Zyvox and meropenem -BIOLOGY INTERN -N.p.o. status -Transfer to the intensive care unit for more close observation and management Hypoxia-pulmonary edema versus infiltrate -Continue supplemental oxygen -CT scan of the chest to further identify, infection versus fluid. Impaired hearing, acute on chronic - patient has known metastatic disease to the brain, significant hearing impairment is felt to be secondary to his current brain tumor. -Continue current therapy with dexamethasone
[2016-12-24] MEDS ORDERED: Albumin 25% 12.5 GM in Premix Bag 1 BAG IV SCH ×3 (11:00→15:00)
--- NOTE | 2016-12-24 11:04 | CT ---
Chest wo Cont HISTORY: Hypoxia, infiltrate vs edema on CXR Axial spiral noncontrasted CT scan of the chest was obtained along with coronal and MIP reconstructi ons. Comparison plain chest radiographs are dated 12/24/2016. FINDINGS: There is a large right pleural effusion. There is atelectasis of most of the right lower l obe. There is also mild atelectasis in the right middle lobe. Moderate left pleural effusion is pres ent with adjacent compressive atelectasis in the left lower lobe. There are patchy infiltrates bilat erally, greatest in the right upper lobe. This may represent mild interstitial edema. Inflammatory i nfiltrates are not excluded. Heart size does not appear enlarged or mildly prominent mediastinal lym ph nodes in the subcarinal region, AP window, and left periaortic region. There is minimal pericardi al fluid. There are a few mildly prominent right axillary lymph nodes. Subcutaneous tissues have a s omewhat edematous appearance suggesting anasarca. Recommend clinical correlation. Ascites can be seen in the upper abdomen. Bilateral adrenal masses do not appear changed compared wi th contrasted CT abdomen study of 12/22/2016. Retroperitoneal and mesenteric adenopathy is redemonstra tim. There is contrast in the gallbladder likely representing vicarious excretion from prior CT stud y. Right hydronephrosis is present with residual contrast in the right pelvicalyceal collecting syst em. There is soft tissue prominence in the region of the right ureteropelvic junction. Anterior abdo silvano wall skin marilee are noted. IMPRESSION: 1. Patchy infiltrates bilaterally could represent interstitial edema or inflammatory infiltrates. 2. Large right pleural effusion and moderate left pleural effusion. There is near total atelectasis right lower lobe and partial atelectasis left lower lobe. Mild atelectasis is also seen right middle lobe. 3. Mediastinal and right axillary adenopathy is present suspicious for metastatic disease. There is edema in the subcutaneous tissues suggesting anasarca. 4. Moderate free fluid can be seen in the upper abdomen. There are mildly enlarged mesenteric and re troperitoneal lymph nodes. These could be metastatic. 5. Right hydronephrosis with residual contrast from prior CT remaining in the right pelvicalyceal co llecting system.. There is soft tissue fullness in the region of the right ureteropelvic junction. T his may represent UPJ obstruction. Right renal cyst is stable. 6. Vicarious excretion of contrast in the gallbladder is noted. 7. Bilateral adrenal masses suspicious for metastatic disease. Total DLP 845 mGycm
[2016-12-24] MEDS ORDERED: Furosemide 40 MG/4 ML VIAL IVPUSH ONE (13:15)
[2016-12-24] MEDS: Albumin 25% 12.5 GM in Premix Bag 1 BAG IV SCH (14:41)
[2016-12-24] MEDS: HYDROmorphone/Normal Saline 15 MG/30 ML PCA IV PRN (21:55)
[2016-12-25] MEDS: Meropenem 500 MG in Sodium Chloride 0.9% 50 ML IV SCH ×2 (01:16→07:40)
[2016-12-25] MEDS: Labetalol 20 MG/4 ML Syringe IVPUSH PRN (03:07)
[2016-12-25] MEDS: Albuterol/Ipratropium 3.0-0.5 MG/3 ML Neb Soln INH PRN ×2 (04:22→05:00)
[2016-12-25] MEDS: Albuterol/Ipratropium 3.0-0.5 MG/3 ML Neb Soln INH SCH ×4 (07:12→20:44)
[2016-12-25] MEDS ORDERED: Furosemide 40 MG/4 ML VIAL IVPUSH ONE (08:00)
[2016-12-25] MEDS: Linezolid 600 MG in Premix Bag 1 BAG IV SCH (08:17)
[2016-12-25] MEDS: Dexamethasone 4 MG/ML SDV IVPUSH SCH ×2 (08:17→21:36)
--- NOTE | 2016-12-25 08:53 | CR ---
Chest 1V Frontal HISTORY: low sats COMPARISON: 12/24/2016 FINDINGS: Portable chest, 0442 hours. NG tube is stable with the tip in the stomach. Interstitial infiltrates bilaterally redemonstrated. Infiltrates on the right appear mildly increased. Left-sided infiltrates felt to be stable. Mild car diomegaly is stable. There are bilateral pleural effusions, right greater than left. Remainder of th e exam is unchanged. IMPRESSION: Interval worsening of infiltrates or edema the right. Findings represent worsening pneum onia or pulmonary congestive changes. Recommend clinical correlation. Pleural effusions do not appea r changed. Right pleural fluid is greater than the left. NG tube is stable.
--- NOTE | 2016-12-25 08:56 | CR ---
Abdomen 2V AP Flat Upright HISTORY: distention COMPARISON: 12/24/2016 FINDINGS: Distended small bowel loops are improved since yesterday's exam. Bowel gas pattern is nons pecific on today's study. No mass organomegaly can be seen. Midline skin marilee and surgical drain are noted. No other interval change identified. IMPRESSION: Resolving postoperative ileus. No other acute abnormality is identified.
[2016-12-25] MEDS ORDERED: Calcium Gluconate 2 GM in Sodium Chloride 0.9% 100 ML IV ONE (09:00)
--- NOTE | 2016-12-25 09:21 | PCM.PN ---
- General Info Date of Service: 12/25/16 Functional Status: Reports: pain controlled - Review of Systems General: Reports: Weakness. Denies: Fever, Chills Pulmonary: Reports: shortness of breath. Denies: pleuritic chest pain, cough Cardiovascular: Reports: Dyspnea on Exertion, Edema. Denies: Chest Pain, Palpitations, Orthopnea, PND Gastrointestinal: Reports: Abdominal pain. Denies: Nausea, Vomiting Systems Review Comment:: This patient has shown further decline over the past 24 hours, he has experienced increased respiratory compromise with decreasing oxygen saturations. He is more sedate and much less interactive. Discussed current management and situation with family, at this time they feel it's very consistent with his previously expressed wishes that we move to comfort cares only and stop all aggressive interventions and evaluation. - Patient Data Vitals - most recent: Last Vital Signs Temp 99.5 F 12/25/16 07:00 Pulse 100 12/25/16 07:12 Resp 12 12/25/16 09:00 BP 164/75 H 12/25/16 09:00 Pulse Ox 89 L 12/25/16 09:00 Weight - most recent: 146 lb 13.246 oz I&O - last 24 hours: Intake & Output 12/24/16 12/25/16 12/25/16 22:59 06:59 14:59 Intake Total 1897 Output Total 1660 460 750 Balance -1660 1437 -750 Lab Results last 24 hrs: Laboratory Results - last 24 hr 12/24/16 12/25/16 12/25/16 Range/Units 09:27 04:00 05:00 WBC 5.0 (4.5-11.0) K/uL RBC 3.32 L (4.30-5.90) M/uL Hgb 8.3 L (12.0-15.0) g/dL Hct 26.8 L (40.0-54.0) % MCV 81 (80-98) fL MCH 25 L (27-31) pg MCHC 31 L (32-36) % Plt Count 52 L (150-400) K/uL Sodium (140-148) mmol/L Potassium (3.6-5.2) mmol/L Chloride (100-108) mmol/L Carbon Dioxide (21-32) mmol/L Anion Gap (5.0-14.0) mmol/L BUN (7-18) mg/dL Creatinine (0.8-1.3) mg/dL Est Cr Clr Drug Dosing mL/min Estimated GFR (MDRD) (>60) Glucose (74-106) mg/dL Calcium (8.5-10.1) mg/dL POC WB Ioniz Calcium 0.99 L* 1.05 L (1.12-1.32) mmol/L Phosphorus (2.5-4.9) mg/dL Magnesium (1.8-2.4) mg/dL Total Bilirubin (0.2-1.0) mg/dL AST (15-37) U/L ALT (12-78) U/L Alkaline Phosphatase (46-116) U/L Wzq-W-Zzoadwiydst Pept (5-125) pg/mL Total Protein (6.4-8.2) g/dL Albumin (3.4-5.0) g/dL Globulin (2.3-3.5) g/dL Albumin/Globulin Ratio (1.2-2.2) 12/25/16 Range/Units 05:02 WBC (4.5-11.0) K/uL RBC (4.30-5.90) M/uL Hgb (12.0-15.0) g/dL Hct (40.0-54.0) % MCV (80-98) fL MCH (27-31) pg MCHC (32-36) % Plt Count (150-400) K/uL Sodium 138 L (140-148) mmol/L Potassium 4.6 (3.6-5.2) mmol/L Chloride 105 (100-108) mmol/L Carbon Dioxide 27 (21-32) mmol/L Anion Gap 10.6 (5.0-14.0) mmol/L BUN 25 H (7-18) mg/dL Creatinine 1.2 (0.8-1.3) mg/dL Est Cr Clr Drug Dosing 60.13 mL/min Estimated GFR (MDRD) > 60 (>60) Glucose 93 (74-106) mg/dL Calcium 7.1 L (8.5-10.1) mg/dL POC WB Ioniz Calcium (1.12-1.32) mmol/L Phosphorus 2.4 L (2.5-4.9) mg/dL Magnesium 2.1 (1.8-2.4) mg/dL Total Bilirubin 0.7 (0.2-1.0) mg/dL AST 29 (15-37) U/L ALT 29 (12-78) U/L Alkaline Phosphatase 57 (46-116) U/L Tii-W-Utojokbdour Pept 4142 H (5-125) pg/mL Total Protein 4.9 L (6.4-8.2) g/dL Albumin 2.3 L (3.4-5.0) g/dL Globulin 2.6 (2.3-3.5) g/dL Albumin/Globulin Ratio 0.9 L (1.2-2.2) Ed Results last 24 hrs: Microbiology 12/23/16 06:58 Aerobic Blood Culture - Preliminary Blood - Arm, Right NO GROWTH AFTER 2 DAYS Anaerobic Blood Culture - Preliminary 12/23/16 06:50 Aerobic Blood Culture - Preliminary Blood - Arm, Right NO GROWTH AFTER 2 DAYS Anaerobic Blood Culture - Preliminary Med Orders - Current: Current Medications Albuterol/Ipratropium (Duoneb 3.0-0.5 Mg/3 Ml) 3 ml INH QIDRT COUNT INCLUDES THE [facility] Last Admin: 12/25/16 07:12 Dose: 3 ml Albuterol/Ipratropium (Duoneb 3.0-0.5 Mg/3 Ml) 3 ml INH ASDIRECTED PRN PRN Reason: RESP DISTRESS Last Admin: 12/25/16 05:00 Dose: 3 ml Dexamethasone (Dexamethasone) 4 mg IVPUSH Q12H COUNT INCLUDES THE [facility] Last Admin: 12/25/16 08:17 Dose: 4 mg Lorazepam (Ativan Oral Concentrate 1mg/0.5 Ml U/D) 0.5 mg PO Q2H PRN PRN Reason: Anxiety Morphine Sulfate (Morphine 10 Mg/0.5 Ml Oral Syringe) 0 mg PO Q1H PRN PRN Reason: Pain Ondansetron HCl (Zofran Odt) 4 mg PO Q4H PRN PRN Reason: Nausea/Vomiting Phenol (Phenaseptic Liquid) 0 ml PO Q1H PRN PRN Reason: Sore Throat Discontinued Medications Bisacodyl (Dulcolax) 20 mg PO BID COUNT INCLUDES THE [facility] Last Admin: 12/21/16 08:28 Dose: Not Given Bupivacaine HCl (Marcaine 0.5%) Confirm Administered Dose 50 ml .ROUTE .STK-MED ONE Stop: 12/17/16 06:48 Last Admin: 12/17/16 07:34 Dose: 15 ml Carbamide Perox/Anhydrous Glycerin (Debrox 6.5% Otic Soln) 0 ml EARBOTH ONETIME ONE Stop: 12/21/16 10:31 Last Admin: 12/21/16 11:40 Dose: 4 drop Dexamethasone (Dexamethasone) 4 mg IVPUSH Q6H COUNT INCLUDES THE [facility] Last Admin: 12/15/16 14:29 Dose: 4 mg Dexamethasone (Dexamethasone) Confirm Administered Dose 4 mg .ROUTE .STK-MED ONE Stop: 12/15/16 08:53 Dexamethasone (Dexamethasone) 4 mg IVPUSH Q6H COUNT INCLUDES THE [facility] Last Admin: 12/21/16 02:16 Dose: 4 mg Dexamethasone (Dexamethasone) 4 mg PO Q6H COUNT INCLUDES THE [facility] Last Admin: 12/22/16 14:04 Dose: Not Given Enoxaparin Sodium (Lovenox) 40 mg SUBCUT DAILY COUNT INCLUDES THE [facility] Last Admin: 12/15/16 14:29 Dose: 40 mg Enoxaparin Sodium (Lovenox) 40 mg SUBCUT DAILY COUNT INCLUDES THE [facility] Last Admin: 12/24/16 08:41 Dose: 40 mg Fentanyl (Duragesic) 25 mcg TRDERM Q72H COUNT INCLUDES THE [facility] Last Admin: 12/24/16 09:31 Dose: 25 mcg Fentanyl (Sublimaze) Confirm Administered Dose 250 mcg .ROUTE .STK-MED ONE Stop: 12/15/16 08:52 Fentanyl (Sublimaze) Confirm Administered Dose 100 mcg .ROUTE .STK-MED ONE Stop: 12/15/16 11:08 Fentanyl (Sublimaze) 100 mcg IVPUSH ONETIME ONE Stop: 12/15/16 11:59 Last Admin: 12/15/16 12:08 Dose: 100 mcg Fentanyl (Sublimaze) Confirm Administered Dose 100 mcg .ROUTE .STK-MED ONE Stop: 12/17/16 07:10 Furosemide (Lasix) 40 mg IVPUSH NOW ONE Stop: 12/24/16 13:16 Last Admin: 12/24/16 13:50 Dose: 40 mg Furosemide (Lasix) 40 mg IVPUSH ONETIME ONE Stop: 12/25/16 08:01 Last Admin: 12/25/16 07:33 Dose: 40 mg Glycopyrrolate () Confirm Administered Dose 1 mg .ROUTE .STK-MED ONE Stop: 12/15/16 08:53 Hydromorphone HCl (Dilaudid Advertising Strategist 15 Mg In Ns 30 Ml) 0 mg IV ASDIRECTED PRN; Protocol PRN Reason: TUBE BENDER PAIN CONTROL Last Admin: 12/20/16 12:55 Dose: 15 mg Hydromorphone HCl (Dilaudid) 1 mg IVPUSH Q2H PRN PRN Reason: Pain (severe 7-10) Stop: 12/22/16 11:30 Last Admin: 12/22/16 10:31 Dose: 1 mg Hydromorphone HCl (Dilaudid Advertising Strategist 15 Mg In Ns 30 Ml) 0 mg IV ASDIRECTED PRN; Protocol PRN Reason: Pain Last Admin: 12/24/16 21:55 Dose: 15 mg Hydroxyzine HCl (Vistaril) 50 mg IM ONETIME ONE Stop: 12/15/16 12:18 Last Admin: 12/15/16 12:24 Dose: 50 mg Hydroxyzine HCl (Vistaril) 75 mg IM ONETIME ONE Stop: 12/22/16 01:55 Last Admin: 12/22/16 02:18 Dose: 75 mg Lactated Ringer's (Ringers, Lactated) 1,000 mls @ 125 mls/hr IV ASDIRECTED COUNT INCLUDES THE [facility] Last Admin: 12/15/16 07:46 Dose: 125 mls/hr Lactated Ringer's (Ringers, Lactated) 1,000 mls @ 333 mls/hr IV ASDIRECTED COUNT INCLUDES THE [facility] Stop: 12/14/16 12:16 Last Admin: 12/14/16 09:25 Dose: 333 mls/hr Cefoxitin Sodium 2 gm/ Sodium (Chloride) 50 mls @ 100 mls/hr IV ONETIME ONE Stop: 12/15/16 09:29 Last Admin: 12/15/16 08:53 Dose: 100 mls/hr Lactated Ringer's (Ringers, Lactated) Confirm Administered Dose 1,000 mls @ as directed .ROUTE .STK-MED ONE Stop: 12/15/16 09:15 Dextrose/Lactated Ringer's (Dextrose 5%-Lactated Ringers) 1,000 mls @ 200 mls/ hr IV ASDIRECTED COUNT INCLUDES THE [facility] Last Admin: 12/17/16 05:12 Dose: 200 mls/hr Cefoxitin Sodium 2 gm/ Sodium (Chloride) 50 mls @ 100 mls/hr IV Q6H COUNT INCLUDES THE [facility] Stop: 12/17/16 12:29 Last Admin: 12/17/16 12:13 Dose: 100 mls/hr Lactated Ringer's (Ringers, Lactated) 500 mls @ 500 mls/hr IV .BOLUS COUNT INCLUDES THE [facility] Last Admin: 12/15/16 23:14 Dose: 500 mls/hr Lactated Ringer's (Ringers, Lactated) 500 mls @ 500 mls/hr IV BOLUS ONE Stop: 12/16/16 00:02 Last Admin: 12/15/16 23:42 Dose: Not Given Lactated Ringer's (Ringers, Lactated) 500 mls @ 500 mls/hr IV BOLUS ONE Stop: 12/16/16 03:02 Last Admin: 12/16/16 02:05 Dose: 500 mls/hr Lactated Ringer's (Ringers, Lactated) 500 mls @ 500 mls/hr IV BOLUS ONE Stop: 12/16/16 06:41 Last Admin: 12/16/16 05:45 Dose: 500 mls/hr Potassium Phosphate 15 mmole/ (Sodium Chloride) 255 mls @ 125 mls/hr IV Q2H COUNT INCLUDES THE [facility] Stop: 12/16/16 13:59 Last Admin: 12/16/16 13:10 Dose: 125 mls/hr Lactated Ringer's (Ringers, Lactated) 500 mls @ 500 mls/hr IV .BOLUS ONE Stop: 12/16/16 15:29 Last Admin: 12/16/16 15:07 Dose: 500 mls/hr Acetaminophen (Ofirmev) Confirm Administered Dose 100 mls @ as directed IV .STK- MED ONE Stop: 12/17/16 07:45 Dextrose/Lactated Ringer's (Dextrose 5%-Lactated Ringers) 1,000 mls @ 100 mls/ hr IV ASDIRECTED COUNT INCLUDES THE [facility] Last Admin: 12/21/16 00:55 Dose: 100 mls/hr Albumin Human 12.5 gm/ Premix 50 mls @ 25 mls/hr IV Q24H COUNT INCLUDES THE [facility] Stop: 12/21/16 10:59 Last Admin: 12/21/16 08:32 Dose: 25 mls/hr Albumin Human 12.5 gm/ Premix 50 mls @ 25 mls/hr IV Q24H COUNT INCLUDES THE [facility] Stop: 12/21/16 12:59 Last Admin: 12/21/16 10:08 Dose: 25 mls/hr Albumin Human 12.5 gm/ Premix 50 mls @ 25 mls/hr IV Q24H COUNT INCLUDES THE [facility] Stop: 12/21/16 14:59 Last Admin: 12/21/16 13:03 Dose: 25 mls/hr Albumin Human 12.5 gm/ Premix 50 mls @ 25 mls/hr IV Q24H COUNT INCLUDES THE [facility] Stop: 12/21/16 16:59 Last Admin: 12/21/16 15:07 Dose: 25 mls/hr Magnesium Sulfate 2 gm/ Premix 50 mls @ 25 mls/hr IV Q6H COUNT INCLUDES THE [facility] Stop: 12/20/16 05:59 Last Admin: 12/20/16 04:07 Dose: 25 mls/hr Potassium Phosphate 20 mmole/ (Sodium Chloride) 256.6667 mls @ 86 mls/hr IV ONETIME ONE Stop: 12/17/16 12:59 Last Admin: 12/17/16 12:48 Dose: 86 mls/hr Potassium Phosphate 25 mmole/ (Sodium Chloride) 508.3333 mls @ 125 mls/hr IV ONETIME ONE Stop: 12/17/16 22:03 Last Admin: 12/17/16 18:21 Dose: 125 mls/hr Acetaminophen 1,000 mg/ Premix 100 mls @ 400 mls/hr IV Q6H COUNT INCLUDES THE [facility] Stop: 12/18/16 04:14 Last Admin: 12/18/16 03:28 Dose: 400 mls/hr Lidocaine HCl (Xylocaine-Mpf 1%) Confirm Administered Dose 2 mls @ as directed .ROUTE .STK-MED ONE Stop: 12/18/16 20:43 Sodium Chloride (Normal Saline) 1,000 mls @ 75 mls/hr IV ASDIRECTED COUNT INCLUDES THE [facility] Last Admin: 12/22/16 11:45 Dose: 75 mls/hr Sodium Chloride (Normal Saline) 100 mls @ 3.5 mls/sec IV ASDIRECTED COUNT INCLUDES THE [facility] Stop: 12/22/16 23:00 Last Admin: 12/22/16 11:27 Dose: 3.5 mls/sec Dextrose/Lactated Ringer's (Dextrose 5%-Lactated Ringers) 1,000 mls @ 125 mls/ hr IV ASDIRECTED COUNT INCLUDES THE [facility] Last Admin: 12/23/16 10:11 Dose: 75 mls/hr Sodium Chloride (Normal Saline) 500 mls @ 500 mls/hr IV .BOLUS ONE Stop: 12/22/16 21:54 Last Admin: 12/22/16 21:07 Dose: 500 mls/hr Sodium Chloride (Normal Saline) 1,000 mls @ 999 mls/hr IV .BOLUS ONE Stop: 12/22/16 23:01 Last Admin: 12/22/16 22:27 Dose: 999 mls/hr Sodium Chloride (Normal Saline) 500 mls @ 500 mls/hr IV .BOLUS ONE Stop: 12/23/16 06:07 Last Admin: 12/23/16 05:10 Dose: 500 mls/hr Linezolid 600 mg/ Premix 300 mls @ 300 mls/hr IV Q12H COUNT INCLUDES THE [facility] Last Admin: 12/25/16 08:17 Dose: 300 mls/hr Meropenem 500 mg/ Sodium (Chloride) 50 mls @ 100 mls/hr IV Q6H COUNT INCLUDES THE [facility] Last Admin: 12/25/16 07:40 Dose: 100 mls/hr Lactated Ringer's (Ringers, Lactated) 1,000 mls @ 500 mls/hr IV ASDIRECTED COUNT INCLUDES THE [facility] Stop: 12/23/16 19:48 Last Admin: 12/23/16 18:38 Dose: 500 mls/hr Lactated Ringer's (Ringers, Lactated) 1,000 mls [facility] Last Admin: 12/24/16 08:52 Dose: 125 mls/hr Albumin Human 12.5 gm/ Premix 50 mls @ 25 mls/hr IV Q24H COUNT INCLUDES THE [facility] Stop: 12/26/16 10:59 Last Admin: 12/24/16 14:41 Dose: 25 mls/hr Albumin Human 12.5 gm/ Premix 50 mls @ 25 mls/hr IV Q24H COUNT INCLUDES THE [facility] Stop: 12/26/16 12:59 Last Admin: 12/24/16 16:44 Dose: 25 mls/hr Albumin Human 12.5 gm/ Premix 50 mls @ 25 mls/hr IV Q24H COUNT INCLUDES THE [facility] Stop: 12/26/16 14:59 Last Admin: 12/24/16 21:57 Dose: 25 mls/hr Albumin Human 12.5 gm/ Premix 50 mls @ 25 mls/hr IV Q24H COUNT INCLUDES THE [facility] Stop: 12/26/16 16:59 Last Admin: 12/24/16 22:19 Dose: 25 mls/hr Erythromycin Lactobionate 125 (mg/ Sodium Chloride) 100 mls @ 100 mls/hr IV Q8H COUNT INCLUDES THE [facility] Last Admin: 12/25/16 01:16 Dose: 100 mls/hr Calcium Gluconate 2 gm/ Sodium (Chloride) 120 mls @ 100 mls/hr IV ONETIME ONE Stop: 12/24/16 11:03 Last Admin: 12/24/16 11:14 Dose: 100 mls/hr Calcium Gluconate 2 gm/ Sodium (Chloride) 120 mls @ 100 mls/hr IV ONETIME ONE Stop: 12/25/16 10:11 Ibuprofen (Motrin) 400 mg PO QID COUNT INCLUDES THE [facility] Last Admin: 12/22/16 17:13 Dose: Not Given Iopamidol (Isovue-300 (61%)) 99 ml IV . DIRECTED PRN PRN Reason: RADIOLOGY EXAM Stop: 12/23/16 10:52 Last Admin: 12/22/16 11:26 Dose: 100 ml Ketamine HCl (Ketalar) Confirm Administered Dose 500 mg .ROUTE .STK-MED ONE Stop: 12/15/16 10:10 Labetalol HCl (Normodyne) 20 mg IVPUSH Q4H PRN PRN Reason: blood pressure Last Admin: 12/25/16 03:07 Dose: 20 mg Lidocaine HCl (Xylocaine 2% Jelly) 10 ml MUCMEM ONETIME ONE Stop: 12/23/16 05:57 Last Admin: 12/23/16 06:03 Dose: 10 ml Lidocaine/Epinephrine (Xylocaine 1% With Epinephrine 1:100,000) Confirm Administered Dose 50 ml .ROUTE .STK-MED ONE Stop: 12/17/16 06:48 Last Admin: 12/17/16 07:34 Dose: 15 ml Magnesium Citrate (Citrate Of Magnesia) 287 ml PO ONETIME ONE Stop: 12/19/16 09:01 Last Admin: 12/19/16 08:51 Dose: 287 ml Magnesium Citrate (Citrate Of Magnesia) 287 ml PO ONETIME ONE Stop: 12/20/16 09:01 Last Admin: 12/20/16 08:35 Dose: 287 ml Meclizine HCl (Antivert) 25 mg PO Q6H PRN PRN Reason: Dizziness Last Admin: 12/16/16 15:07 Dose: 25 mg Meperidine HCl (Demerol) 75 mg IM ONETIME ONE Stop: 12/22/16 01:56 Last Admin: 12/22/16 02:17 Dose: 75 mg Meropenem (Merrem) Confirm Administered Dose 500 mg .ROUTE .STK-MED ONE Stop: 12/15/16 10:51 Last Admin: 12/16/16 09:16 Dose: 500 mg Meropenem (Merrem) Confirm Administered Dose 500 mg .ROUTE .STK-MED ONE Stop: 12/17/16 06:48 Last Admin: 12/17/16 07:30 Dose: 500 mg Methylprednisolone Sodium Succinate (Solu-Medrol) 60 mg IVPUSH ONETIME ONE Stop: 12/15/16 09:01 Last Admin: 12/15/16 08:51 Dose: 60 mg Midazolam HCl (Versed 1 Mg/Ml) Confirm Administered Dose 2 mg .ROUTE .STK-MED ONE Stop: 12/15/16 08:52 Midazolam HCl (Versed 1 Mg/Ml) Confirm Administered Dose 2 mg .ROUTE .STK-MED ONE Stop: 12/17/16 07:10 Naloxone HCl (Narcan) 0.1 mg IV ASDIRECTED PRN PRN Reason: decreased respiratory rate Naloxone HCl (Narcan) 0.1 mg IVPUSH Q2M PRN PRN Reason: Respiratory Distress Neostigmine Methylsulfate (Neostigmine) Confirm Administered Dose 5 mg .ROUTE .STK-MED ONE Stop: 12/15/16 08:53 Verify Fent Patch 0 each TOP BID FANG Last Admin: 12/24/16 22:07 Dose: Not Given Ondansetron HCl (Zofran) 4 mg IV Q4H PRN PRN Reason: Nausea/Vomiting Last Admin: 12/20/16 02:41 Dose: 4 mg Ondansetron HCl (Zofran) Confirm Administered Dose 4 mg .ROUTE .STK-MED ONE Stop: 12/15/16 08:53 Oxycodone/Acetaminophen (Percocet 325-5 Mg) 1 - 2 tab PO Q4H PRN PRN Reason: PAIN Last Admin: 12/22/16 07:42 Dose: 2 tab Pantoprazole Sodium (Protonix Iv) 40 mg IVPUSH DAILY COUNT INCLUDES THE [facility] Last Admin: 12/21/16 10:08 Dose: 40 mg Pantoprazole Sodium (Protonix) 40 mg PO ACBREAKFAST COUNT INCLUDES THE [facility] Last Admin: 12/22/16 07:31 Dose: 40 mg Propofol (Diprivan 20 Ml) Confirm Administered Dose 200 mg .ROUTE .STK-MED ONE Stop: 12/15/16 08:53 Propofol (Diprivan 20 Ml) Confirm Administered Dose 200 mg .ROUTE .STK-MED ONE Stop: 12/17/16 07:10 Rocuronium [place] (Zemuron) Confirm Administered Dose 50 mg .ROUTE .STK-MED ONE Stop: 12/15/16 08:53 Sodium Chloride (Saline Flush) 10 ml FLUSH ASDIRECTED PRN PRN Reason: Keep Vein Open Sodium Chloride (Saline Flush) 10 ml FLUSH ASDIRECTED PRN PRN Reason: Keep Vein Open Stop: 12/22/16 23:00 Last Admin: 12/22/16 11:27 Dose: 10 ml Succinylcholine Chloride (Succinylcholine In Ns Pf) Confirm Administered Dose 200 mg .ROUTE .STK-MED ONE Stop: 12/15/16 08:53 Succinylcholine Chloride (Succinylcholine In Ns Pf) Confirm Administered Dose 200 mg .ROUTE .STK-MED ONE Stop: 12/15/16 11:10 - Exam Neck: supple Lungs: Rales, Rhonchi. No: Decreased breath sounds, Crackles, Rub, Stridor, Wheezing Cardiovascular: Regular Rate, Regular Rhythm, No Murmurs Abdomen: bowel sounds present, soft, no distension, tenderness Extremities: edema - Problem List Review Problem List Initiated/Reviewed/Updated: Yes - My Orders Last 24 Hours: My Active Orders 12/25/16 08:23 Convert IV to Saline Lock [OM.PC] Routine 12/25/16 09:12 LORazepam [Ativan ORAL Concentrate 1MG/0.5 ML U/D] 0.5 mg PO Q2H PRN Morphine [Morphine 10 MG/0.5 ML Oral Syringe] See Dose Instructions PO Q1H PRN - Plan Plan:: ASSESSMENT AND PLAN - 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 He has failed to improve significantly following surgery and family at this point wants to proceed with comfort cares only. Acute abdominal pain and hemodynamic instability-vital signs have stabilized over the past 24 hours, except for respiratory status, slow respiratory rate likely secondary to fentanyl patch. Decreased oxygen saturations, despite progressive increase in supplemental oxygen. -NG tube -IV fluids at TKO until CT scan of the chest is available -Continue current IV antibiotic therapy with Zyvox and meropenem -TUBE BENDER -N.p.o. status -Transfer to the intensive unit for more close observation and management Hypoxia-pulmonary edema versus infiltrate, respiratory status has worsened over the past 24 hours. Family has requested that we move to comfort cares only given his underlying metastatic squamous cell carcinoma. -Continue supplemental oxygen Impaired hearing, acute on chronic - patient has known metastatic disease to the brain, significant hearing impairment is felt to be secondary to his current brain tumor. -Continue current therapy with dexamethasone Palliative Care-per patient's previously expressed wishes family has requested that we move to comfort cares only
[2016-12-25] MEDS: Morphine 10 MG/0.5 ML Oral Syringe PO PRN ×4 (10:26→21:46)
[2016-12-25] MEDS: LORazepam ORAL Concentrate 1MG/0.5ML U/D PO PRN ×2 (15:43→20:51)
[2016-12-25] MEDS ORDERED: diphenhydrAMINE 50 MG/ML SDV IVPUSH PRN (19:15)
[2016-12-26] MEDS: LORazepam ORAL Concentrate 1MG/0.5ML U/D PO PRN (02:20)
[2016-12-26] MEDS: Morphine 10 MG/0.5 ML Oral Syringe PO PRN ×5 (02:21→22:33)
[2016-12-26] MEDS: Albuterol/Ipratropium 3.0-0.5 MG/3 ML Neb Soln INH SCH ×4 (07:11→20:43)
[2016-12-26] MEDS: Dexamethasone 4 MG/ML SDV IVPUSH SCH ×2 (09:03→20:43)
--- NOTE | 2016-12-26 09:26 | PCM.PN ---
- General Info Date of Service: 12/26/16 Functional Status: Reports: pain controlled - Review of Systems Systems Review Comment:: This patient is currently on comfort cares secondary to his widely metastatic squamous cell carcinoma. He has remained comfortable over the past 24 hours, NG tube remains in place disease not passing gas and has not had a bowel movement. - Patient Data Vitals - most recent: Last Vital Signs Temp 99.9 F 12/25/16 20:40 Pulse 108 H 12/26/16 08:01 Resp 12 12/26/16 08:01 BP 105/90 12/25/16 20:40 Pulse Ox 96 12/26/16 08:01 Weight - most recent: 146 lb 13.246 oz I&O - last 24 hours: Intake & Output 12/25/16 12/26/16 12/26/16 22:59 06:59 14:59 Output Total 1835 435 Balance -1835 -435 Ed Results last 24 hrs: Microbiology 12/23/16 06:50 Aerobic Blood Culture - Preliminary Blood - Arm, Right NO GROWTH AFTER 3 DAYS Anaerobic Blood Culture - Final Anaerobic Gram Negative Reed 12/23/16 06:58 Aerobic Blood Culture - Final Blood - Arm, Right Escherichia Coli Anaerobic Blood Culture - Final Anaerobic Gram Negative Reed Med Orders - Current: Current Medications Albuterol/Ipratropium (Duoneb 3.0-0.5 Mg/3 Ml) 3 ml INH QIDRT FANG Last Admin: 12/26/16 07:11 Dose: 3 ml Albuterol/Ipratropium (Duoneb 3.0-0.5 Mg/3 Ml) 3 ml INH ASDIRECTED PRN PRN Reason: RESP DISTRESS Last Admin: 12/25/16 05:00 Dose: 3 ml Dexamethasone (Dexamethasone) 4 mg IVPUSH Q12H FANG Last Admin: 12/26/16 09:03 Dose: 4 mg Diphenhydramine HCl (Benadryl) 25 mg IVPUSH Q6H PRN PRN Reason: Itching Last Admin: 12/25/16 23:33 Dose: 25 mg Lorazepam (Ativan Oral Concentrate 1mg/0.5 Ml U/D) 0.5 mg PO Q2H PRN PRN Reason: Anxiety Last Admin: 12/26/16 02:20 Dose: 0.5 mg Morphine Sulfate (Morphine 10 Mg/0.5 Ml Oral Syringe) 5 - 10 mg PO Q1H PRN PRN Reason: Pain Last Admin: 12/26/16 02:21 Dose: 10 mg Ondansetron HCl (Zofran Odt) 4 mg PO Q4H PRN PRN Reason: Nausea/Vomiting Last Admin: 12/25/16 20:50 Dose: 4 mg Phenol (Phenaseptic Liquid) 0 ml PO Q1H PRN PRN Reason: Sore Throat Discontinued Medications Bisacodyl (Dulcolax) 20 mg PO BID [facility] Last Admin: 12/21/16 08:28 Dose: Not Given Bupivacaine HCl (Marcaine 0.5%) Confirm Administered Dose 50 ml .ROUTE .STK-MED ONE Stop: 12/17/16 06:48 Last Admin: 12/17/16 07:34 Dose: 15 ml Carbamide Perox/Anhydrous Glycerin (Debrox 6.5% Otic Soln) 0 ml EARBOTH ONETIME ONE Stop: 12/21/16 10:31 Last Admin: 12/21/16 11:40 Dose: 4 drop Dexamethasone (Dexamethasone) 4 mg IVPUSH Q6H [facility] Last Admin: 12/15/16 14:29 Dose: 4 mg Dexamethasone (Dexamethasone) Confirm Administered Dose 4 mg .ROUTE .STK-MED ONE Stop: 12/15/16 08:53 Dexamethasone (Dexamethasone) 4 mg IVPUSH Q6H [facility] Last Admin: 12/21/16 02:16 Dose: 4 mg Dexamethasone (Dexamethasone) 4 mg PO Q6H [facility] Last Admin: 12/22/16 14:04 Dose: Not Given Enoxaparin Sodium (Lovenox) 40 mg SUBCUT DAILY [facility] Last Admin: 12/15/16 14:29 Dose: 40 mg Enoxaparin Sodium (Lovenox) 40 mg SUBCUT DAILY [facility] Last Admin: 12/24/16 08:41 Dose: 40 mg Fentanyl (Duragesic) 25 mcg TRDERM Q72H [facility] Last Admin: 12/24/16 09:31 Dose: 25 mcg Fentanyl (Sublimaze) Confirm Administered Dose 250 mcg .ROUTE .STK-MED ONE Stop: 12/15/16 08:52 Fentanyl (Sublimaze) Confirm Administered Dose 100 mcg .ROUTE .STK-MED ONE Stop: 12/15/16 11:08 Fentanyl (Sublimaze) 100 mcg IVPUSH ONETIME ONE Stop: 12/15/16 11:59 Last Admin: 12/15/16 12:08 Dose: 100 mcg Fentanyl (Sublimaze) Confirm Administered Dose 100 mcg .ROUTE .STK-MED ONE Stop: 12/17/16 07:10 Furosemide (Lasix) 40 mg IVPUSH NOW ONE Stop: 12/24/16 13:16 Last Admin: 12/24/16 13:50 Dose: 40 mg Furosemide (Lasix) 40 mg IVPUSH ONETIME ONE Stop: 12/25/16 08:01 Last Admin: 12/25/16 07:33 Dose: 40 mg Glycopyrrolate () Confirm Administered Dose 1 mg .ROUTE .STK-MED ONE Stop: 12/15/16 08:53 Hydromorphone HCl (Dilaudid Senior [employer] Developer 15 Mg In Ns 30 Ml) 0 mg IV ASDIRECTED PRN; Protocol PRN 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 Last Admin: 12/20/16 12:55 Dose: 15 mg Hydromorphone HCl (Dilaudid) 1 mg IVPUSH Q2H PRN PRN Reason: Pain (severe 7-10) Stop: 12/22/16 11:30 Last Admin: 12/22/16 10:31 Dose: 1 mg Hydromorphone HCl (Dilaudid Senior Mobile Application Developer 15 Mg In Ns 30 Ml) 0 mg IV ASDIRECTED PRN; Protocol PRN Reason: Pain Last Admin: 12/24/16 21:55 Dose: 15 mg Hydroxyzine HCl (Vistaril) 50 mg IM ONETIME ONE Stop: 12/15/16 12:18 Last Admin: 12/15/16 12:24 Dose: 50 mg Hydroxyzine HCl (Vistaril) 75 mg IM ONETIME ONE Stop: 12/22/16 01:55 Last Admin: 12/22/16 02:18 Dose: 75 mg Lactated Ringer's (Ringers, Lactated) 1,000 mls @ 125 mls/hr IV ASDIRECTED FANG Last Admin: 12/15/16 07:46 Dose: 125 mls/hr Lactated Ringer's (Ringers, Lactated) 1,000 mls @ 333 mls/hr IV ASDIRECTED FANG Stop: 12/14/16 12:16 Last Admin: 12/14/16 09:25 Dose: 333 mls/hr Cefoxitin Sodium 2 gm/ Sodium (Chloride) 50 mls @ 100 mls/hr IV ONETIME ONE Stop: 12/15/16 09:29 Last Admin: 12/15/16 08:53 Dose: 100 mls/hr Lactated Ringer's (Ringers, Lactated) Confirm Administered Dose 1,000 mls @ as directed .ROUTE .STK-MED ONE Stop: 12/15/16 09:15 Dextrose/Lactated Ringer's (Dextrose 5%-Lactated Ringers) 1,000 mls @ 200 mls/ hr IV ASDIRECTED [facility] Last Admin: 12/17/16 05:12 Dose: 200 mls/hr Cefoxitin Sodium 2 gm/ Sodium (Chloride) 50 mls @ 100 mls/hr IV Q6H [facility] Stop: 12/17/16 12:29 Last Admin: 12/17/16 12:13 Dose: 100 mls/hr Lactated Ringer's (Ringers, Lactated) 500 mls @ 500 mls/hr IV .BOLUS [facility] Last Admin: 12/15/16 23:14 Dose: 500 mls/hr Lactated Ringer's (Ringers, Lactated) 500 mls @ 500 mls/hr IV BOLUS ONE Stop: 12/16/16 00:02 Last Admin: 12/15/16 23:42 Dose: Not Given Lactated Ringer's (Ringers, Lactated) 500 mls @ 500 mls/hr IV BOLUS ONE Stop: 12/16/16 03:02 Last Admin: 12/16/16 02:05 Dose: 500 mls/hr Lactated Ringer's (Ringers, Lactated) 500 mls @ 500 mls/hr IV BOLUS ONE Stop: 12/16/16 06:41 Last Admin: 12/16/16 05:45 Dose: 500 mls/hr Potassium Phosphate 15 mmole/ (Sodium Chloride) 255 mls @ 125 mls/hr IV Q2H [facility] Stop: 12/16/16 13:59 Last Admin: 12/16/16 13:10 Dose: 125 mls/hr Lactated Ringer's (Ringers, Lactated) 500 mls @ 500 mls/hr IV .BOLUS ONE Stop: 12/16/16 15:29 Last Admin: 12/16/16 15:07 Dose: 500 mls/hr Acetaminophen (Ofirmev) Confirm Administered Dose 100 mls @ as directed IV .STK- MED ONE Stop: 12/17/16 07:45 Dextrose/Lactated Ringer's (Dextrose 5%-Lactated Ringers) 1,000 mls @ 100 mls/ hr IV ASDIRECTED [facility] Last Admin: 12/21/16 00:55 Dose: 100 mls/hr Albumin Human 12.5 gm/ Premix 50 mls @ 25 mls/hr IV Q24H [facility] Stop: 12/21/16 10:59 Last Admin: 12/21/16 08:32 Dose: 25 mls/hr Albumin Human 12.5 gm/ Premix 50 mls @ 25 mls/hr IV Q24H [facility] Stop: 12/21/16 12:59 Last Admin: 12/21/16 10:08 Dose: 25 mls/hr Albumin Human 12.5 gm/ Premix 50 mls @ 25 mls/hr IV Q24H [facility] Stop: 12/21/16 14:59 Last Admin: 12/21/16 13:03 Dose: 25 mls/hr Albumin Human 12.5 gm/ Premix 50 mls @ 25 mls/hr IV Q24H [facility] Stop: 12/21/16 16:59 Last Admin: 12/21/16 15:07 Dose: 25 mls/hr Magnesium Sulfate 2 gm/ Premix 50 mls @ 25 mls/hr IV Q6H [facility] Stop: 12/20/16 05:59 Last Admin: 12/20/16 04:07 Dose: 25 mls/hr Potassium Phosphate 20 mmole/ (Sodium Chloride) 256.6667 mls @ 86 mls/hr IV ONETIME ONE Stop: 12/17/16 12:59 Last Admin: 12/17/16 12:48 Dose: 86 mls/hr Potassium Phosphate 25 mmole/ (Sodium Chloride) 508.3333 mls @ 125 mls/hr IV ONETIME ONE Stop: 12/17/16 22:03 Last Admin: 12/17/16 18:21 Dose: 125 mls/hr Acetaminophen 1,000 mg/ Premix 100 mls @ 400 mls/hr IV Q6H [facility] Stop: 12/18/16 04:14 Last Admin: 12/18/16 03:28 Dose: 400 mls/hr Lidocaine HCl (Xylocaine-Mpf 1%) Confirm Administered Dose 2 mls @ as directed .ROUTE .STK-MED ONE Stop: 12/18/16 20:43 Sodium Chloride (Normal Saline) 1,000 mls @ 75 mls/hr IV ASDIRECTED [facility] Last Admin: 12/22/16 11:45 Dose: 75 mls/hr Sodium Chloride (Normal Saline) 100 mls @ 3.5 mls/sec IV ASDIRECTED [facility] Stop: 12/22/16 23:00 Last Admin: 12/22/16 11:27 Dose: 3.5 mls/sec Dextrose/Lactated Ringer's (Dextrose 5%-Lactated Ringers) 1,000 mls @ 125 mls/ hr IV ASDIRECTED [facility] Last Admin: 12/23/16 10:11 Dose: 75 mls/hr Sodium Chloride (Normal Saline) 500 mls @ 500 mls/hr IV .BOLUS ONE Stop: 12/22/16 21:54 Last Admin: 12/22/16 21:07 Dose: 500 mls/hr Sodium Chloride (Normal Saline) 1,000 mls @ 999 mls/hr IV .BOLUS ONE Stop: 12/22/16 23:01 Last Admin: 12/22/16 22:27 Dose: 999 mls/hr Sodium Chloride (Normal Saline) 500 mls @ 500 mls/hr IV .BOLUS ONE Stop: 12/23/16 06:07 Last Admin: 12/23/16 05:10 Dose: 500 mls/hr Linezolid 600 mg/ Premix 300 mls @ 300 mls/hr IV Q12H [facility] Last Admin: 12/25/16 08:17 Dose: 300 mls/hr Meropenem 500 mg/ Sodium (Chloride) 50 mls @ 100 mls/hr IV Q6H [facility] Last Admin: 12/25/16 07:40 Dose: 100 mls/hr Lactated Ringer's (Ringers, Lactated) 1,000 mls @ 500 mls/hr IV ASDIRECTED [facility] Stop: 12/23/16 19:48 Last Admin: 12/23/16 18:38 Dose: 500 mls/hr Lactated Ringer's (Ringers, Lactated) 1,000 mls @ 25 mls/hr IV ASDIRECTED [facility] Last Admin: 12/24/16 08:52 Dose: 125 mls/hr Albumin Human 12.5 gm/ Premix 50 mls @ 25 mls/hr IV Q24H [facility] Stop: 12/26/16 10:59 Last Admin: 12/24/16 14:41 Dose: 25 mls/hr Albumin Human 12.5 gm/ Premix 50 mls @ 25 mls/hr IV Q24H [facility] Stop: 12/26/16 12:59 Last Admin: 12/24/16 16:44 Dose: 25 mls/hr Albumin Human 12.5 gm/ Premix 50 mls @ 25 mls/hr IV Q24H [facility] Stop: 12/26/16 14:59 Last Admin: 12/24/16 21:57 Dose: 25 mls/hr Albumin Human 12.5 gm/ Premix 50 mls @ 25 mls/hr IV Q24H [facility] Stop: 12/26/16 16:59 Last Admin: 12/24/16 22:19 Dose: 25 mls/hr Erythromycin Lactobionate 125 (mg/ Sodium Chloride) 100 mls @ 100 mls/hr IV Q8H [facility] Last Admin: 12/25/16 01:16 Dose: 100 mls/hr Calcium Gluconate 2 gm/ Sodium (Chloride) 120 mls @ 100 mls/hr IV ONETIME ONE Stop: 12/24/16 11:03 Last Admin: 12/24/16 11:14 Dose: 100 mls/hr Calcium Gluconate 2 gm/ Sodium (Chloride) 120 mls @ 100 mls/hr IV ONETIME ONE Stop: 12/25/16 10:11 Ibuprofen (Motrin) 400 mg PO QID [facility] Last Admin: 12/22/16 17:13 Dose: Not Given Iopamidol (Isovue-300 (61%)) 99 ml IV . DIRECTED PRN PRN Reason: RADIOLOGY EXAM Stop: 12/23/16 10:52 Last Admin: 12/22/16 11:26 Dose: 100 ml Ketamine HCl (Ketalar) Confirm Administered Dose 500 mg .ROUTE .STK-MED ONE Stop: 12/15/16 10:10 Labetalol HCl (Normodyne) 20 mg IVPUSH Q4H PRN PRN Reason: blood pressure Last Admin: 12/25/16 03:07 Dose: 20 mg Lidocaine HCl (Xylocaine 2% Jelly) 10 ml MUCMEM ONETIME ONE Stop: 12/23/16 05:57 Last Admin: 12/23/16 06:03 Dose: 10 ml Lidocaine/Epinephrine (Xylocaine 1% With Epinephrine 1:100,000) Confirm Administered Dose 50 ml .ROUTE .STK-MED ONE Stop: 12/17/16 06:48 Last Admin: 12/17/16 07:34 Dose: 15 ml Magnesium Citrate (Citrate Of Magnesia) 287 ml PO ONETIME ONE Stop: 12/19/16 09:01 Last Admin: 12/19/16 08:51 Dose: 287 ml Magnesium Citrate (Citrate Of Magnesia) 287 ml PO ONETIME ONE Stop: 12/20/16 09:01 Last Admin: 12/20/16 08:35 Dose: 287 ml Meclizine HCl (Antivert) 25 mg PO Q6H PRN PRN Reason: Dizziness Last Admin: 12/16/16 15:07 Dose: 25 mg Meperidine HCl (Demerol) 75 mg IM ONETIME ONE Stop: 12/22/16 01:56 Last Admin: 12/22/16 02:17 Dose: 75 mg Meropenem (Merrem) Confirm Administered Dose 500 mg .ROUTE .STK-MED ONE Stop: 12/15/16 10:51 Last Admin: 12/16/16 09:16 Dose: 500 mg Meropenem (Merrem) Confirm Administered Dose 500 mg .ROUTE .STK-MED ONE Stop: 12/17/16 06:48 Last Admin: 12/17/16 07:30 Dose: 500 mg Methylprednisolone Sodium Succinate (Solu-Medrol) 60 mg IVPUSH ONETIME ONE Stop: 12/15/16 09:01 Last Admin: 12/15/16 08:51 Dose: 60 mg Midazolam HCl (Versed 1 Mg/Ml) Confirm Administered Dose 2 mg .ROUTE .STK-MED ONE Stop: 12/15/16 08:52 Midazolam HCl (Versed 1 Mg/Ml) Confirm Administered Dose 2 mg .ROUTE .STK-MED ONE Stop: 12/17/16 07:10 Naloxone HCl (Narcan) 0.1 mg IV ASDIRECTED PRN PRN Reason: decreased respiratory rate Naloxone HCl (Narcan) 0.1 mg IVPUSH Q2M PRN PRN Reason: Respiratory Distress Neostigmine Methylsulfate (Neostigmine) Confirm Administered Dose 5 mg .ROUTE .STK-MED ONE Stop: 12/15/16 08:53 Verify Fent Patch 0 each TOP BID [facility] Last Admin: 12/24/16 22:07 Dose: Not Given Ondansetron HCl (Zofran) 4 mg IV Q4H PRN PRN Reason: Nausea/Vomiting Last Admin: 12/20/16 02:41 Dose: 4 mg Ondansetron HCl (Zofran) Confirm Administered Dose 4 mg .ROUTE .STK-MED ONE Stop: 12/15/16 08:53 Oxycodone/Acetaminophen (Percocet 325-5 Mg) 1 - 2 tab PO Q4H PRN PRN Reason: PAIN Last Admin: 12/22/16 07:42 Dose: 2 tab Pantoprazole Sodium (Protonix Iv) 40 mg IVPUSH DAILY [facility] Last Admin: 12/21/16 10:08 Dose: 40 mg Pantoprazole Sodium (Protonix) 40 mg PO ACBREAKFAST [facility] Last Admin: 12/22/16 07:31 Dose: 40 mg Propofol (Diprivan 20 Ml) Confirm Administered Dose 200 mg .ROUTE .STK-MED ONE Stop: 12/15/16 08:53 Propofol (Diprivan 20 Ml) Confirm Administered Dose 200 mg .ROUTE .STK-MED ONE Stop: 12/17/16 07:10 Rocuronium [place] (Zemuron) Confirm Administered Dose 50 mg .ROUTE .STK-MED ONE Stop: 12/15/16 08:53 Sodium Chloride (Saline Flush) 10 ml FLUSH ASDIRECTED PRN PRN Reason: Keep Vein Open Sodium Chloride (Saline Flush) 10 ml FLUSH ASDIRECTED PRN PRN Reason: Keep Vein Open Stop: 12/22/16 23:00 Last Admin: 12/22/16 11:27 Dose: 10 ml Succinylcholine Chloride (Succinylcholine In Ns Pf) Confirm Administered Dose 200 mg .ROUTE .STK-MED ONE Stop: 12/15/16 08:53 Succinylcholine Chloride (Succinylcholine In Ns Pf) Confirm Administered Dose 200 mg .ROUTE .STK-MED ONE Stop: 12/15/16 11:10 - Exam Quality Assessment: supplemental oxygen, urine catheter General: lethargic - Problem List Review Problem List Initiated/Reviewed/Updated: Yes - My Orders Last 24 Hours: My Active Orders 12/25/16 09:12 LORazepam [Ativan ORAL Concentrate 1MG/0.5 ML U/D] 0.5 mg PO Q2H PRN Morphine [Morphine 10 MG/0.5 ML Oral Syringe] 5 - 10 mg PO Q1H PRN 12/25/16 19:15 diphenhydrAMINE [Benadryl] 25 mg IVPUSH Q6H PRN - Plan Plan:: ASSESSMENT AND PLAN - 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 He has failed to improve significantly following surgery and family at this point wants to proceed with comfort cares only. Ileus -NG tube -N.p.o. status Hypoxia- Family has requested that we move to comfort cares only given his underlying metastatic squamous cell carcinoma. -Continue supplemental oxygen Impaired hearing, acute on chronic - patient has known metastatic disease to the brain, significant hearing impairment is felt to be secondary to his current brain tumor. -Continue current therapy with dexamethasone Palliative Care-per patient's previously expressed wishes family has requested that we move to comfort cares only
--- NOTE | 2016-12-26 11:55 | PN ---
DATE OF SERVICE: 12/25/2016 The patient's overall condition has deteriorated, becoming less communicative and respiratory status is also deteriorating. Chest x-ray this morning shows a large pneumonia involving most of the right lung. The situation was discussed with the family and at this point, they wished to proceed with comfort cares only. Given the patient's cancer status it appears to be reasonable. We removed the TYLER drainage from the incision and otherwise management will continue per Dr. Hayes. Richie Armenta MD /[id number]
[2016-12-26] MEDS: VERIFY FENT PATCH TOP SCH (16:14)
[2016-12-26] MEDS: Albumin 25% 12.5 GM in Premix Bag 1 BAG IV SCH (16:14)
[2016-12-27] MEDS: Morphine 10 MG/0.5 ML Oral Syringe PO PRN ×6 (01:23→23:46)
[2016-12-27] MEDS: Albuterol/Ipratropium 3.0-0.5 MG/3 ML Neb Soln INH SCH ×4 (07:31→21:22)
[2016-12-27] MEDS: Dexamethasone 4 MG/ML SDV IVPUSH SCH ×2 (09:34→21:26)
--- NOTE | 2016-12-27 09:37 | PN ---
DATE OF SERVICE: 12/24/2016 The patient has been afebrile. Blood pressure is somewhat better, heart rate is down around 100, and urine output is somewhat improved as well. The abdominal exam remains fairly benign. X-rays show significant improvement in terms of it being much less in the way of small bowel air and quite a bit of air now into the large bowel. NG output over the last 24 hours was around 550 mL. The plan at this point will be to continue the NG suctioning for today. We will repeat abdominal x-rays tomorrow. I think we will add some IV erythromycin to augment GI tract motility. His albumin is quite low at 1.9. We will give him some albumin over the next 3 days. Otherwise, continue with present antibiotics. It is notable that his O2 saturations are a little bit lower than one would expect, and so we may be dealing with some degree of pneumonitis, and we will get a chest x-ray this morning and repeat that again tomorrow as well. Richie Armenta MD /[id number]
--- NOTE | 2016-12-27 10:19 | PN ---
DATE OF SERVICE: 12/27/2016 SUBJECTIVE: Austin is in comfort cares. His vital signs; he had a temp max of 99.2. Pain has been controlled. NG has put out 260 mL for the past 24 hours. He has a Burks catheter in that has put out 2320 over the past 24 hours. REVIEW OF SYSTEMS: Remainder of review of systems negative for any pertinent positives and negatives. OBJECTIVE: GENERAL: Austin is a 61-year-old male. VITAL SIGNS: TPR is 99.2, 104, 14, blood pressure is 144/84. O2 saturation by pulse oximetry 77% on 8 L per nasal cannula. HEENT: Negative. NECK: Supple. HEART: Regular rate and rhythm. LUNGS: Decreased breath sounds. ABDOMEN: Flat and nontender. Abdominal binder is on. EXTREMITIES: Without peripheral edema. ASSESSMENT: 1. Comfort cares. 2. Exploratory laparotomy with small bowel resection, strictureplasty and mesh placement, decompression of small bowel on 12/15/2016. 3. Delayed primary closure on 12/17/2016. 4. Postoperative ileus. PLAN: Discontinue NG, full liquid diet. Remainder of orders to be written per Jez Hayes MD. Noa Gorman PA-C /[id number]
--- NOTE | 2016-12-27 12:46 | PCM.PN ---
- General Info Date of Service: 12/27/16 Functional Status: Reports: pain controlled - Review of Systems General: Reports: Weakness. Denies: Fever, Chills Pulmonary: Reports: no symptoms Cardiovascular: Reports: No Symptoms Gastrointestinal: Reports: No symptoms Systems Review Comment:: She has been fairly stable and comfortable over the past 24 hours. He has been seen and evaluated by Dr. Armenta with the plan to remove the NG tube and see if he tolerates a clear liquid diet. - Patient Data Vitals - most recent: Last Vital Signs Temp 99.2 F 12/27/16 07:25 Pulse 104 H 12/27/16 11:09 Resp 14 12/27/16 07:25 BP 144/84 H 12/27/16 07:25 Pulse Ox 96 12/27/16 11:09 Weight - most recent: 146 lb 13.246 oz I&O - last 24 hours: Intake & Output 12/26/16 12/27/16 12/27/16 22:59 06:59 14:59 Output Total 660 550 Balance -660 -550 Ed Results last 24 hrs: Microbiology 12/23/16 06:50 Aerobic Blood Culture - Preliminary Blood - Arm, Right NO GROWTH AFTER 4 DAYS Anaerobic Blood Culture - Final Anaerobic Gram Negative Reed Med Orders - Current: Current Medications Albuterol/Ipratropium (Duoneb 3.0-0.5 Mg/3 Ml) 3 ml INH QIDRT FANG Last Admin: 12/27/16 11:09 Dose: 3 ml Albuterol/Ipratropium (Duoneb 3.0-0.5 Mg/3 Ml) 3 ml INH ASDIRECTED PRN PRN Reason: RESP DISTRESS Last Admin: 12/25/16 05:00 Dose: 3 ml Dexamethasone (Dexamethasone) 4 mg IVPUSH Q12H FANG Last Admin: 12/27/16 09:34 Dose: 4 mg Diphenhydramine HCl (Benadryl) 25 mg IVPUSH Q6H PRN PRN Reason: Itching Last Admin: 12/25/16 23:33 Dose: 25 mg Lorazepam (Ativan Oral Concentrate 1mg/0.5 Ml U/D) 0.5 mg PO Q2H PRN PRN Reason: Anxiety Last Admin: 12/26/16 02:20 Dose: 0.5 mg Morphine Sulfate (Morphine 10 Mg/0.5 Ml Oral Syringe) 5 - 10 mg PO Q1H PRN PRN Reason: Pain Last Admin: 12/27/16 07:20 Dose: 10 mg Ondansetron HCl (Zofran Odt) 4 mg PO Q4H PRN PRN Reason: Nausea/Vomiting Last Admin: 12/25/16 20:50 Dose: 4 mg Phenol (Phenaseptic Liquid) 0 ml PO Q1H PRN PRN Reason: Sore Throat Last Admin: 12/27/16 00:22 Dose: 1 spray Discontinued Medications Bisacodyl (Dulcolax) 20 mg PO BID [facility] Last Admin: 12/21/16 08:28 Dose: Not Given Bupivacaine HCl (Marcaine 0.5%) Confirm Administered Dose 50 ml .ROUTE .STK-MED ONE Stop: 12/17/16 06:48 Last Admin: 12/17/16 07:34 Dose: 15 ml Carbamide Perox/Anhydrous Glycerin (Debrox 6.5% Otic Soln) 0 ml EARBOTH ONETIME ONE Stop: 12/21/16 10:31 Last Admin: 12/21/16 11:40 Dose: 4 drop Dexamethasone (Dexamethasone) 4 mg IVPUSH Q6H [facility] Last Admin: 12/15/16 14:29 Dose: 4 mg Dexamethasone (Dexamethasone) Confirm Administered Dose 4 mg .ROUTE .STK-MED ONE Stop: 12/15/16 08:53 Dexamethasone (Dexamethasone) 4 mg IVPUSH Q6H [facility] Last Admin: 12/21/16 02:16 Dose: 4 mg Dexamethasone (Dexamethasone) 4 mg PO Q6H [facility] Last Admin: 12/22/16 14:04 Dose: Not Given Enoxaparin Sodium (Lovenox) 40 mg SUBCUT DAILY [facility] Last Admin: 12/15/16 14:29 Dose: 40 mg Enoxaparin Sodium (Lovenox) 40 mg SUBCUT DAILY [facility] Last Admin: 12/24/16 08:41 Dose: 40 mg Fentanyl (Duragesic) 25 mcg TRDERM Q72H [facility] Last Admin: 12/24/16 09:31 Dose: 25 mcg Fentanyl (Sublimaze) Confirm Administered Dose 250 mcg .ROUTE .STK-MED ONE Stop: 12/15/16 08:52 Fentanyl (Sublimaze) Confirm Administered Dose 100 mcg .ROUTE .STK-MED ONE Stop: 12/15/16 11:08 Fentanyl (Sublimaze) 100 mcg IVPUSH ONETIME ONE Stop: 12/15/16 11:59 Last Admin: 12/15/16 12:08 Dose: 100 mcg Fentanyl (Sublimaze) Confirm Administered Dose 100 mcg .ROUTE .STK-MED ONE Stop: 12/17/16 07:10 Furosemide (Lasix) 40 mg IVPUSH NOW ONE Stop: 12/24/16 13:16 Last Admin: 12/24/16 13:50 Dose: 40 mg Furosemide (Lasix) 40 mg IVPUSH ONETIME ONE Stop: 12/25/16 08:01 Last Admin: 12/25/16 07:33 Dose: 40 mg Glycopyrrolate () Confirm Administered Dose 1 mg .ROUTE .STK-MED ONE Stop: 12/15/16 08:53 Hydromorphone HCl (Dilaudid Hat Brim Curler 15 Mg In Ns 30 Ml) 0 mg IV ASDIRECTED PRN; Protocol 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 Last Admin: 12/20/16 12:55 Dose: 15 mg Hydromorphone HCl (Dilaudid) 1 mg IVPUSH Q2H PRN PRN Reason: Pain (severe 7-10) Stop: 12/22/16 11:30 Last Admin: 12/22/16 10:31 Dose: 1 mg Hydromorphone HCl (Dilaudid Hat Brim Curler 15 Mg In Ns 30 Ml) 0 mg IV ASDIRECTED PRN; Protocol PRN Reason: Pain Last Admin: 12/24/16 21:55 Dose: 15 mg Hydroxyzine HCl (Vistaril) 50 mg IM ONETIME ONE Stop: 12/15/16 12:18 Last Admin: 12/15/16 12:24 Dose: 50 mg Hydroxyzine HCl (Vistaril) 75 mg IM ONETIME ONE Stop: 12/22/16 01:55 Last Admin: 12/22/16 02:18 Dose: 75 mg Lactated Ringer's (Ringers, Lactated) 1,000 mls @ 125 mls/hr IV ASDIRECTED FANG Last Admin: 12/15/16 07:46 Dose: 125 mls/hr Lactated Ringer's (Ringers, Lactated) 1,000 mls @ 333 mls/hr IV ASDIRECTED FANG Stop: 12/14/16 12:16 Last Admin: 12/14/16 09:25 Dose: 333 mls/hr Cefoxitin Sodium 2 gm/ Sodium (Chloride) 50 mls @ 100 mls/hr IV ONETIME ONE Stop: 12/15/16 09:29 Last Admin: 12/15/16 08:53 Dose: 100 mls/hr Lactated Ringer's (Ringers, Lactated) Confirm Administered Dose 1,000 mls @ as directed .ROUTE .STK-MED ONE Stop: 12/15/16 09:15 Dextrose/Lactated Ringer's (Dextrose 5%-Lactated Ringers) 1,000 mls @ 200 mls/ hr IV ASDIRECTED [facility] Last Admin: 12/17/16 05:12 Dose: 200 mls/hr Cefoxitin Sodium 2 gm/ Sodium (Chloride) 50 mls @ 100 mls/hr IV Q6H [facility] Stop: 12/17/16 12:29 Last Admin: 12/17/16 12:13 Dose: 100 mls/hr Lactated Ringer's (Ringers, Lactated) 500 mls @ 500 mls/hr IV .BOLUS [facility] Last Admin: 12/15/16 23:14 Dose: 500 mls/hr Lactated Ringer's (Ringers, Lactated) 500 mls @ 500 mls/hr IV BOLUS ONE Stop: 12/16/16 00:02 Last Admin: 12/15/16 23:42 Dose: Not Given Lactated Ringer's (Ringers, Lactated) 500 mls @ 500 mls/hr IV BOLUS ONE Stop: 12/16/16 03:02 Last Admin: 12/16/16 02:05 Dose: 500 mls/hr Lactated Ringer's (Ringers, Lactated) 500 mls @ 500 mls/hr IV BOLUS ONE Stop: 12/16/16 06:41 Last Admin: 12/16/16 05:45 Dose: 500 mls/hr Potassium Phosphate 15 mmole/ (Sodium Chloride) 255 mls @ 125 mls/hr IV Q2H FANG Stop: 12/16/16 13:59 Last Admin: 12/16/16 13:10 Dose: 125 mls/hr Lactated Ringer's (Ringers, Lactated) 500 mls @ 500 mls/hr IV .BOLUS ONE Stop: 12/16/16 15:29 Last Admin: 12/16/16 15:07 Dose: 500 mls/hr Acetaminophen (Ofirmev) Confirm Administered Dose 100 mls @ as directed IV .STK- MED ONE Stop: 12/17/16 07:45 Dextrose/Lactated Ringer's (Dextrose 5%-Lactated Ringers) 1,000 mls @ 100 mls/ hr IV ASDIRECTED [facility] Last Admin: 12/21/16 00:55 Dose: 100 mls/hr Albumin Human 12.5 gm/ Premix 50 mls @ 25 mls/hr IV Q24H [facility] Stop: 12/21/16 10:59 Last Admin: 12/21/16 08:32 Dose: 25 mls/hr Albumin Human 12.5 gm/ Premix 50 mls @ 25 mls/hr IV Q24H [facility] Stop: 12/21/16 12:59 Last Admin: 12/21/16 10:08 Dose: 25 mls/hr Albumin Human 12.5 gm/ Premix 50 mls @ 25 mls/hr IV Q24H [facility] Stop: 12/21/16 14:59 Last Admin: 12/21/16 13:03 Dose: 25 mls/hr Albumin Human 12.5 gm/ Premix 50 mls @ 25 mls/hr IV Q24H [facility] Stop: 12/21/16 16:59 Last Admin: 12/21/16 15:07 Dose: 25 mls/hr Magnesium Sulfate 2 gm/ Premix 50 mls @ 25 mls/hr IV Q6H [facility] Stop: 12/20/16 05:59 Last Admin: 12/20/16 04:07 Dose: 25 mls/hr Potassium Phosphate 20 mmole/ (Sodium Chloride) 256.6667 mls @ 86 mls/hr IV ONETIME ONE Stop: 12/17/16 12:59 Last Admin: 12/17/16 12:48 Dose: 86 mls/hr Potassium Phosphate 25 mmole/ (Sodium Chloride) 508.3333 mls @ 125 mls/hr IV ONETIME ONE Stop: 12/17/16 22:03 Last Admin: 12/17/16 18:21 Dose: 125 mls/hr Acetaminophen 1,000 mg/ Premix 100 mls @ 400 mls/hr IV Q6H [facility] Stop: 12/18/16 04:14 Last Admin: 12/18/16 03:28 Dose: 400 mls/hr Lidocaine HCl (Xylocaine-Mpf 1%) Confirm Administered Dose 2 mls @ as directed .ROUTE .STK-MED ONE Stop: 12/18/16 20:43 Sodium Chloride (Normal Saline) 1,000 mls @ 75 mls/hr IV ASDIRECTED [facility] Last Admin: 12/22/16 11:45 Dose: 75 mls/hr Sodium Chloride (Normal Saline) 100 mls @ 3.5 mls/sec IV ASDIRECTED [facility] Stop: 12/22/16 23:00 Last Admin: 12/22/16 11:27 Dose: 3.5 mls/sec Dextrose/Lactated Ringer's (Dextrose 5%-Lactated Ringers) 1,000 mls @ 125 mls/ hr IV ASDIRECTED [facility] Last Admin: 12/23/16 10:11 Dose: 75 mls/hr Sodium Chloride (Normal Saline) 500 mls @ 500 mls/hr IV .BOLUS ONE Stop: 12/22/16 21:54 Last Admin: 12/22/16 21:07 Dose: 500 mls/hr Sodium Chloride (Normal Saline) 1,000 mls @ 999 mls/hr IV .BOLUS ONE Stop: 12/22/16 23:01 Last Admin: 12/22/16 22:27 Dose: 999 mls/hr Sodium Chloride (Normal Saline) 500 mls @ 500 mls/hr IV .BOLUS ONE Stop: 12/23/16 06:07 Last Admin: 12/23/16 05:10 Dose: 500 mls/hr Linezolid 600 mg/ Premix 300 mls @ 300 mls/hr IV Q12H [facility] Last Admin: 12/25/16 08:17 Dose: 300 mls/hr Meropenem 500 mg/ Sodium (Chloride) 50 mls @ 100 mls/hr IV Q6H [facility] Last Admin: 12/25/16 07:40 Dose: 100 mls/hr Lactated Ringer's (Ringers, Lactated) 1,000 mls @ 500 mls/hr IV ASDIRECTED [facility] Stop: 12/23/16 19:48 Last Admin: 12/23/16 18:38 Dose: 500 mls/hr Lactated Ringer's (Ringers, Lactated) 1,000 mls @ 25 mls/hr IV ASDIRECTED [facility] Last Admin: 12/24/16 08:52 Dose: 125 mls/hr Albumin Human 12.5 gm/ Premix 50 mls @ 25 mls/hr IV Q24H [facility] Stop: 12/26/16 10:59 Last Admin: 12/26/16 16:14 Dose: Not Given Albumin Human 12.5 gm/ Premix 50 mls @ 25 mls/hr IV Q24H [facility] Stop: 12/26/16 12:59 Last Admin: 12/24/16 16:44 Dose: 25 mls/hr Albumin Human 12.5 gm/ Premix 50 mls @ 25 mls/hr IV Q24H [facility] Stop: 12/26/16 14:59 Last Admin: 12/24/16 21:57 Dose: 25 mls/hr Albumin Human 12.5 gm/ Premix 50 mls @ 25 mls/hr IV Q24H [facility] Stop: 12/26/16 16:59 Last Admin: 12/24/16 22:19 Dose: 25 mls/hr Erythromycin Lactobionate 125 (mg/ Sodium Chloride) 100 mls @ 100 mls/hr IV Q8H [facility] Last Admin: 12/25/16 01:16 Dose: 100 mls/hr Calcium Gluconate 2 gm/ Sodium (Chloride) 120 mls @ 100 mls/hr IV ONETIME ONE Stop: 12/24/16 11:03 Last Admin: 12/24/16 11:14 Dose: 100 mls/hr Calcium Gluconate 2 gm/ Sodium (Chloride) 120 mls @ 100 mls/hr IV ONETIME ONE Stop: 12/25/16 10:11 Last Admin: 12/26/16 16:14 Dose: Not Given Ibuprofen (Motrin) 400 mg PO QID [facility] Last Admin: 12/22/16 17:13 Dose: Not Given Iopamidol (Isovue-300 (61%)) 99 ml IV . DIRECTED PRN PRN Reason: RADIOLOGY EXAM Stop: 12/23/16 10:52 Last Admin: 12/22/16 11:26 Dose: 100 ml Ketamine HCl (Ketalar) Confirm Administered Dose 500 mg .ROUTE .STK-MED ONE Stop: 12/15/16 10:10 Labetalol HCl (Normodyne) 20 mg IVPUSH Q4H PRN PRN Reason: blood pressure Last Admin: 12/25/16 03:07 Dose: 20 mg Lidocaine HCl (Xylocaine 2% Jelly) 10 ml MUCMEM ONETIME ONE Stop: 12/23/16 05:57 Last Admin: 12/23/16 06:03 Dose: 10 ml Lidocaine/Epinephrine (Xylocaine 1% With Epinephrine 1:100,000) Confirm Administered Dose 50 ml .ROUTE .STK-MED ONE Stop: 12/17/16 06:48 Last Admin: 12/17/16 07:34 Dose: 15 ml Magnesium Citrate (Citrate Of Magnesia) 287 ml PO ONETIME ONE Stop: 12/19/16 09:01 Last Admin: 12/19/16 08:51 Dose: 287 ml Magnesium Citrate (Citrate Of Magnesia) 287 ml PO ONETIME ONE Stop: 12/20/16 09:01 Last Admin: 12/20/16 08:35 Dose: 287 ml Meclizine HCl (Antivert) 25 mg PO Q6H PRN PRN Reason: Dizziness Last Admin: 12/16/16 15:07 Dose: 25 mg Meperidine HCl (Demerol) 75 mg IM ONETIME ONE Stop: 12/22/16 01:56 Last Admin: 12/22/16 02:17 Dose: 75 mg Meropenem (Merrem) Confirm Administered Dose 500 mg .ROUTE .STK-MED ONE Stop: 12/15/16 10:51 Last Admin: 12/16/16 09:16 Dose: 500 mg Meropenem (Merrem) Confirm Administered Dose 500 mg .ROUTE .STK-MED ONE Stop: 12/17/16 06:48 Last Admin: 12/17/16 07:30 Dose: 500 mg Methylprednisolone Sodium Succinate (Solu-Medrol) 60 mg IVPUSH ONETIME ONE Stop: 12/15/16 09:01 Last Admin: 12/15/16 08:51 Dose: 60 mg Midazolam HCl (Versed 1 Mg/Ml) Confirm Administered Dose 2 mg .ROUTE .STK-MED ONE Stop: 12/15/16 08:52 Midazolam HCl (Versed 1 Mg/Ml) Confirm Administered Dose 2 mg .ROUTE .STK-MED ONE Stop: 12/17/16 07:10 Naloxone HCl (Narcan) 0.1 mg IV ASDIRECTED PRN PRN Reason: decreased respiratory rate Naloxone HCl (Narcan) 0.1 mg IVPUSH Q2M PRN PRN Reason: Respiratory Distress Neostigmine Methylsulfate (Neostigmine) Confirm Administered Dose 5 mg .ROUTE .STK-MED ONE Stop: 12/15/16 08:53 Verify Fent Patch 0 each TOP BID [facility] Last Admin: 12/26/16 16:14 Dose: Not Given Ondansetron HCl (Zofran) 4 mg IV Q4H PRN PRN Reason: Nausea/Vomiting Last Admin: 12/20/16 02:41 Dose: 4 mg Ondansetron HCl (Zofran) Confirm Administered Dose 4 mg .ROUTE .STK-MED ONE Stop: 12/15/16 08:53 Oxycodone/Acetaminophen (Percocet 325-5 Mg) 1 - 2 tab PO Q4H PRN PRN Reason: PAIN Last Admin: 12/22/16 07:42 Dose: 2 tab Pantoprazole Sodium (Protonix Iv) 40 mg IVPUSH DAILY [facility] Last Admin: 12/21/16 10:08 Dose: 40 mg Pantoprazole Sodium (Protonix) 40 mg PO ACBREAKFAST [facility] Last Admin: 12/22/16 07:31 Dose: 40 mg Propofol (Diprivan 20 Ml) Confirm Administered Dose 200 mg .ROUTE .STK-MED ONE Stop: 12/15/16 08:53 Propofol (Diprivan 20 Ml) Confirm Administered Dose 200 mg .ROUTE .STK-MED ONE Stop: 12/17/16 07:10 Rocuronium [place] (Zemuron) Confirm Administered Dose 50 mg .ROUTE .STK-MED ONE Stop: 12/15/16 08:53 Sodium Chloride (Saline Flush) 10 ml FLUSH ASDIRECTED PRN PRN Reason: Keep Vein Open Sodium Chloride (Saline Flush) 10 ml FLUSH ASDIRECTED PRN PRN Reason: Keep Vein Open Stop: 12/22/16 23:00 Last Admin: 12/22/16 11:27 Dose: 10 ml Succinylcholine Chloride (Succinylcholine In Ns Pf) Confirm Administered Dose 200 mg .ROUTE .STK-MED ONE Stop: 12/15/16 08:53 Succinylcholine Chloride (Succinylcholine In Ns Pf) Confirm Administered Dose 200 mg .ROUTE .STK-MED ONE Stop: 12/15/16 11:10 - Exam Lungs: Clear to auscultation, Normal respiratory effort Cardiovascular: Regular Rate, Regular Rhythm, No Murmurs Abdomen: bowel sounds present, soft, no tenderness, no distension Extremities: edema Skin: warm, dry, intact - Problem List Review Problem List Initiated/Reviewed/Updated: Yes - Plan Plan:: ASSESSMENT AND PLAN - 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 He has failed to improve significantly following surgery and patient with incentive family wants to proceed with comfort cares only. -Liquid morphine and lorazepam as needed for comfort Ileus -NG tube -N.p.o. status Hypoxia- Family has requested that we move to comfort cares only given his underlying metastatic squamous cell carcinoma. -Continue supplemental oxygen Impaired hearing, acute on chronic - patient has known metastatic disease to the brain, significant hearing impairment is felt to be secondary to his current brain tumor. -Continue current therapy with dexamethasone Palliative Care-per patient's previously expressed wishes family has requested that we move to comfort cares only
[2016-12-28] MEDS: Morphine 10 MG/0.5 ML Oral Syringe PO PRN ×9 (03:11→23:25)
[2016-12-28] MEDS: Albuterol/Ipratropium 3.0-0.5 MG/3 ML Neb Soln INH SCH ×4 (07:19→21:26)
[2016-12-28] MEDS: Dexamethasone 4 MG/ML SDV IVPUSH SCH (08:24)
--- NOTE | 2016-12-28 16:50 | PCM.PN ---
- General Info Date of Service: 12/28/16 Functional Status: Reports: pain controlled - Review of Systems Systems Review Comment:: This patient has been stable since yesterday, pain control has been adequate. He is tolerated having the NG tube out and has not had significant abdominal pain, nausea or vomiting. - Patient Data Vitals - most recent: Last Vital Signs Temp 99.2 F 12/28/16 07:35 Pulse 110 H 12/28/16 14:40 Resp 18 12/28/16 07:35 BP 144/88 H 12/28/16 07:35 Pulse Ox 94 L 12/28/16 07:35 Weight - most recent: 146 lb 13.246 oz I&O - last 24 hours: Intake & Output 12/28/16 12/28/16 12/28/16 06:59 14:59 22:59 Output Total 270 175 Balance -270 -175 Ed Results last 24 hrs: Microbiology 12/23/16 06:50 Aerobic Blood Culture - Final Blood - Arm, Right NO GROWTH AFTER 5 DAYS Anaerobic Blood Culture - Final Anaerobic Gram Negative Reed Med Orders - Current: Current Medications Albuterol/Ipratropium (Duoneb 3.0-0.5 Mg/3 Ml) 3 ml INH QIDRT [facility]ANG Last Admin: 12/28/16 14:40 Dose: 3 ml Albuterol/Ipratropium (Duoneb 3.0-0.5 Mg/3 Ml) 3 ml INH ASDIRECTED PRN PRN Reason: RESP DISTRESS Last Admin: 12/25/16 05:00 Dose: 3 ml Dexamethasone (Dexamethasone) 4 mg PO BID [facility]ANG Diphenhydramine HCl (Benadryl) 25 mg IVPUSH Q6H PRN PRN Reason: Itching Last Admin: 12/25/16 23:33 Dose: 25 mg Lorazepam (Ativan Oral Concentrate 1mg/0.5 Ml U/D) 0.5 mg PO Q2H PRN PRN Reason: Anxiety Last Admin: 12/26/16 02:20 Dose: 0.5 mg Morphine Sulfate (Morphine 10 Mg/0.5 Ml Oral Syringe) 5 - 10 mg PO Q1H PRN PRN Reason: Pain Last Admin: 12/28/16 15:27 Dose: 10 mg Ondansetron HCl (Zofran Odt) 4 mg PO Q4H PRN PRN Reason: Nausea/Vomiting Last Admin: 12/25/16 20:50 Dose: 4 mg Phenol (Phenaseptic Liquid) 0 ml PO Q1H PRN PRN Reason: Sore Throat Last Admin: 12/27/16 00:22 Dose: 1 spray Discontinued Medications Bisacodyl (Dulcolax) 20 mg PO BID [facility] Last Admin: 12/21/16 08:28 Dose: Not Given Bupivacaine HCl (Marcaine 0.5%) Confirm Administered Dose 50 ml .ROUTE .STK-MED ONE Stop: 12/17/16 06:48 Last Admin: 12/17/16 07:34 Dose: 15 ml Carbamide Perox/Anhydrous Glycerin (Debrox 6.5% Otic Soln) 0 ml EARBOTH ONETIME ONE Stop: 12/21/16 10:31 Last Admin: 12/21/16 11:40 Dose: 4 drop Dexamethasone (Dexamethasone) 4 mg IVPUSH Q6H [facility] Last Admin: 12/15/16 14:29 Dose: 4 mg Dexamethasone (Dexamethasone) Confirm Administered Dose 4 mg .ROUTE .STK-MED ONE Stop: 12/15/16 08:53 Dexamethasone (Dexamethasone) 4 mg IVPUSH Q6H [facility] Last Admin: 12/21/16 02:16 Dose: 4 mg Dexamethasone (Dexamethasone) 4 mg PO Q6H [facility] Last Admin: 12/22/16 14:04 Dose: Not Given Dexamethasone (Dexamethasone) 4 mg IVPUSH Q12H [facility] Last Admin: 12/28/16 08:24 Dose: 4 mg Enoxaparin Sodium (Lovenox) 40 mg SUBCUT DAILY [facility] Last Admin: 12/15/16 14:29 Dose: 40 mg Enoxaparin Sodium (Lovenox) 40 mg SUBCUT DAILY [facility] Last Admin: 12/24/16 08:41 Dose: 40 mg Fentanyl (Duragesic) 25 mcg TRDERM Q72H [facility] Last Admin: 12/24/16 09:31 Dose: 25 mcg Fentanyl (Sublimaze) Confirm Administered Dose 250 mcg .ROUTE .STK-MED ONE Stop: 12/15/16 08:52 Fentanyl (Sublimaze) Confirm Administered Dose 100 mcg .ROUTE .STK-MED ONE Stop: 12/15/16 11:08 Fentanyl (Sublimaze) 100 mcg IVPUSH ONETIME ONE Stop: 12/15/16 11:59 Last Admin: 12/15/16 12:08 Dose: 100 mcg Fentanyl (Sublimaze) Confirm Administered Dose 100 mcg .ROUTE .STK-MED ONE Stop: 12/17/16 07:10 Furosemide (Lasix) 40 mg IVPUSH NOW ONE Stop: 12/24/16 13:16 Last Admin: 12/24/16 13:50 Dose: 40 mg Furosemide (Lasix) 40 mg IVPUSH ONETIME ONE Stop: 12/25/16 08:01 Last Admin: 12/25/16 07:33 Dose: 40 mg Glycopyrrolate () Confirm Administered Dose 1 mg .ROUTE .STK-MED ONE Stop: 12/15/16 08:53 Hydromorphone HCl (Dilaudid Electrical Apprentice 15 Mg In Ns 30 Ml) 0 mg IV ASDIRECTED PRN; Protocol PRN Reason: BI MANAGER PAIN CONTROL Last Admin: 12/20/16 12:55 Dose: 15 mg Hydromorphone HCl (Dilaudid) 1 mg IVPUSH Q2H PRN PRN Reason: Pain (severe 7-10) Stop: 12/22/16 11:30 Last Admin: 12/22/16 10:31 Dose: 1 mg Hydromorphone HCl (Dilaudid Electrical Apprentice 15 Mg In Ns 30 Ml) 0 mg IV ASDIRECTED PRN; Protocol PRN Reason: Pain Last Admin: 12/24/16 21:55 Dose: 15 mg Hydroxyzine HCl (Vistaril) 50 mg IM ONETIME ONE Stop: 12/15/16 12:18 Last Admin: 12/15/16 12:24 Dose: 50 mg Hydroxyzine HCl (Vistaril) 75 mg IM ONETIME ONE Stop: 12/22/16 01:55 Last Admin: 12/22/16 02:18 Dose: 75 mg Lactated Ringer's (Ringers, Lactated) 1,000 mls @ 125 mls/hr IV ASDIRECTED [facility] Last Admin: 12/15/16 07:46 Dose: 125 mls/hr Lactated Ringer's (Ringers, Lactated) 1,000 mls @ 333 mls/hr IV ASDIRECTED [facility] Stop: 12/14/16 12:16 Last Admin: 12/14/16 09:25 Dose: 333 mls/hr Cefoxitin Sodium 2 gm/ Sodium (Chloride) 50 mls @ 100 mls/hr IV ONETIME ONE Stop: 12/15/16 09:29 Last Admin: 12/15/16 08:53 Dose: 100 mls/hr Lactated Ringer's (Ringers, Lactated) Confirm Administered Dose 1,000 mls @ as directed .ROUTE .STK-MED ONE Stop: 12/15/16 09:15 Dextrose/Lactated Ringer's (Dextrose 5%-Lactated Ringers) 1,000 mls @ 200 mls/ hr IV ASDIRECTED [facility] Last Admin: 12/17/16 05:12 Dose: 200 mls/hr Cefoxitin Sodium 2 gm/ Sodium (Chloride) 50 mls @ 100 mls/hr IV Q6H [facility] Stop: 12/17/16 12:29 Last Admin: 12/17/16 12:13 Dose: 100 mls/hr Lactated Ringer's (Ringers, Lactated) 500 mls @ 500 mls/hr IV .BOLUS [facility] Last Admin: 12/15/16 23:14 Dose: 500 mls/hr Lactated Ringer's (Ringers, Lactated) 500 mls @ 500 mls/hr IV BOLUS ONE Stop: 12/16/16 00:02 Last Admin: 12/15/16 23:42 Dose: Not Given Lactated Ringer's (Ringers, Lactated) 500 mls @ 500 mls/hr IV BOLUS ONE Stop: 12/16/16 03:02 Last Admin: 12/16/16 02:05 Dose: 500 mls/hr Lactated Ringer's (Ringers, Lactated) 500 mls @ 500 mls/hr IV BOLUS ONE Stop: 12/16/16 06:41 Last Admin: 12/16/16 05:45 Dose: 500 mls/hr Potassium Phosphate 15 mmole/ (Sodium Chloride) 255 mls @ 125 mls/hr IV Q2H [facility] Stop: 12/16/16 13:59 Last Admin: 12/16/16 13:10 Dose: 125 mls/hr Lactated Ringer's (Ringers, Lactated) 500 mls @ 500 mls/hr IV .BOLUS ONE Stop: 12/16/16 15:29 Last Admin: 12/16/16 15:07 Dose: 500 mls/hr Acetaminophen (Ofirmev) Confirm Administered Dose 100 mls @ as directed IV .STK- MED ONE Stop: 12/17/16 07:45 Dextrose/Lactated Ringer's (Dextrose 5%-Lactated Ringers) 1,000 mls @ 100 mls/ hr IV ASDIRECTED [facility] Last Admin: 12/21/16 00:55 Dose: 100 mls/hr Albumin Human 12.5 gm/ Premix 50 mls @ 25 mls/hr IV Q24H [facility] Stop: 12/21/16 10:59 Last Admin: 12/21/16 08:32 Dose: 25 mls/hr Albumin Human 12.5 gm/ Premix 50 mls @ 25 mls/hr IV Q24H [facility] Stop: 12/21/16 12:59 Last Admin: 12/21/16 10:08 Dose: 25 mls/hr Albumin Human 12.5 gm/ Premix 50 mls @ 25 mls/hr IV Q24H [facility] Stop: 12/21/16 14:59 Last Admin: 12/21/16 13:03 Dose: 25 mls/hr Albumin Human 12.5 gm/ Premix 50 mls @ 25 mls/hr IV Q24H [facility] Stop: 12/21/16 16:59 Last Admin: 12/21/16 15:07 Dose: 25 mls/hr Magnesium Sulfate 2 gm/ Premix 50 mls @ 25 mls/hr IV Q6H [facility] Stop: 12/20/16 05:59 Last Admin: 12/20/16 04:07 Dose: 25 mls/hr Potassium Phosphate 20 mmole/ (Sodium Chloride) 256.6667 mls @ 86 mls/hr IV ONETIME ONE Stop: 12/17/16 12:59 Last Admin: 12/17/16 12:48 Dose: 86 mls/hr Potassium Phosphate 25 mmole/ (Sodium Chloride) 508.3333 mls @ 125 mls/hr IV ONETIME ONE Stop: 12/17/16 22:03 Last Admin: 12/17/16 18:21 Dose: 125 mls/hr Acetaminophen 1,000 mg/ Premix 100 mls @ 400 mls/hr IV Q6H [facility] Stop: 12/18/16 04:14 Last Admin: 12/18/16 03:28 Dose: 400 mls/hr Lidocaine HCl (Xylocaine-Mpf 1%) Confirm Administered Dose 2 mls @ as directed .ROUTE .STK-MED ONE Stop: 12/18/16 20:43 Sodium Chloride (Normal Saline) 1,000 mls @ 75 mls/hr IV ASDIRECTED [facility] Last Admin: 12/22/16 11:45 Dose: 75 mls/hr Sodium Chloride (Normal Saline) 100 mls @ 3.5 mls/sec IV ASDIRECTED [facility] Stop: 12/22/16 23:00 Last Admin: 12/22/16 11:27 Dose: 3.5 mls/sec Dextrose/Lactated Ringer's (Dextrose 5%-Lactated Ringers) 1,000 mls @ 125 mls/ hr IV ASDIRECTED [facility] Last Admin: 12/23/16 10:11 Dose: 75 mls/hr Sodium Chloride (Normal Saline) 500 mls @ 500 mls/hr IV .BOLUS ONE Stop: 12/22/16 21:54 Last Admin: 12/22/16 21:07 Dose: 500 mls/hr Sodium Chloride (Normal Saline) 1,000 mls @ 999 mls/hr IV .BOLUS ONE Stop: 12/22/16 23:01 Last Admin: 12/22/16 22:27 Dose: 999 mls/hr Sodium Chloride (Normal Saline) 500 mls @ 500 mls/hr IV .BOLUS ONE Stop: 12/23/16 06:07 Last Admin: 12/23/16 05:10 Dose: 500 mls/hr Linezolid 600 mg/ Premix 300 mls @ 300 mls/hr IV Q12H [facility] Last Admin: 12/25/16 08:17 Dose: 300 mls/hr Meropenem 500 mg/ Sodium (Chloride) 50 mls @ 100 mls/hr IV Q6H [facility] Last Admin: 12/25/16 07:40 Dose: 100 mls/hr Lactated Ringer's (Ringers, Lactated) 1,000 mls @ 500 mls/hr IV ASDIRECTED [facility] Stop: 12/23/16 19:48 Last Admin: 12/23/16 18:38 Dose: 500 mls/hr Lactated Ringer's (Ringers, Lactated) 1,000 mls @ 25 mls/hr IV ASDIRECTED [facility] Last Admin: 12/24/16 08:52 Dose: 125 mls/hr Albumin Human 12.5 gm/ Premix 50 mls @ 25 mls/hr IV Q24H [facility] Stop: 12/26/16 10:59 Last Admin: 12/26/16 16:14 Dose: Not Given Albumin Human 12.5 gm/ Premix 50 mls @ 25 mls/hr IV Q24H [facility] Stop: 12/26/16 12:59 Last Admin: 12/24/16 16:44 Dose: 25 mls/hr Albumin Human 12.5 gm/ Premix 50 mls @ 25 mls/hr IV Q24H [facility] Stop: 12/26/16 14:59 Last Admin: 12/24/16 21:57 Dose: 25 mls/hr Albumin Human 12.5 gm/ Premix 50 mls @ 25 mls/hr IV Q24H [facility] Stop: 12/26/16 16:59 Last Admin: 12/24/16 22:19 Dose: 25 mls/hr Erythromycin Lactobionate 125 (mg/ Sodium Chloride) 100 mls @ 100 mls/hr IV Q8H [facility] Last Admin: 12/25/16 01:16 Dose: 100 mls/hr Calcium Gluconate 2 gm/ Sodium (Chloride) 120 mls @ 100 mls/hr IV ONETIME ONE Stop: 12/24/16 11:03 Last Admin: 12/24/16 11:14 Dose: 100 mls/hr Calcium Gluconate 2 gm/ Sodium (Chloride) 120 mls @ 100 mls/hr IV ONETIME ONE Stop: 12/25/16 10:11 Last Admin: 12/26/16 16:14 Dose: Not Given Ibuprofen (Motrin) 400 mg PO QID [facility] Last Admin: 12/22/16 17:13 Dose: Not Given Iopamidol (Isovue-300 (61%)) 99 ml IV . DIRECTED PRN PRN Reason: RADIOLOGY EXAM Stop: 12/23/16 10:52 Last Admin: 12/22/16 11:26 Dose: 100 ml Ketamine HCl (Ketalar) Confirm Administered Dose 500 mg .ROUTE .STK-MED ONE Stop: 12/15/16 10:10 Labetalol HCl (Normodyne) 20 mg IVPUSH Q4H PRN PRN Reason: blood pressure Last Admin: 12/25/16 03:07 Dose: 20 mg Lidocaine HCl (Xylocaine 2% Jelly) 10 ml MUCMEM ONETIME ONE Stop: 12/23/16 05:57 Last Admin: 12/23/16 06:03 Dose: 10 ml Lidocaine/Epinephrine (Xylocaine 1% With Epinephrine 1:100,000) Confirm Administered Dose 50 ml .ROUTE .STK-MED ONE Stop: 12/17/16 06:48 Last Admin: 12/17/16 07:34 Dose: 15 ml Magnesium Citrate (Citrate Of Magnesia) 287 ml PO ONETIME ONE Stop: 12/19/16 09:01 Last Admin: 12/19/16 08:51 Dose: 287 ml Magnesium Citrate (Citrate Of Magnesia) 287 ml PO ONETIME ONE Stop: 12/20/16 09:01 Last Admin: 12/20/16 08:35 Dose: 287 ml Meclizine HCl (Antivert) 25 mg PO Q6H PRN PRN Reason: Dizziness Last Admin: 12/16/16 15:07 Dose: 25 mg Meperidine HCl (Demerol) 75 mg IM ONETIME ONE Stop: 12/22/16 01:56 Last Admin: 12/22/16 02:17 Dose: 75 mg Meropenem (Merrem) Confirm Administered Dose 500 mg .ROUTE .STK-MED ONE Stop: 12/15/16 10:51 Last Admin: 12/16/16 09:16 Dose: 500 mg Meropenem (Merrem) Confirm Administered Dose 500 mg .ROUTE .STK-MED ONE Stop: 12/17/16 06:48 Last Admin: 12/17/16 07:30 Dose: 500 mg Methylprednisolone Sodium Succinate (Solu-Medrol) 60 mg IVPUSH ONETIME ONE Stop: 12/15/16 09:01 Last Admin: 12/15/16 08:51 Dose: 60 mg Midazolam HCl (Versed 1 Mg/Ml) Confirm Administered Dose 2 mg .ROUTE .STK-MED ONE Stop: 12/15/16 08:52 Midazolam HCl (Versed 1 Mg/Ml) Confirm Administered Dose 2 mg .ROUTE .STK-MED ONE Stop: 12/17/16 07:10 Naloxone HCl (Narcan) 0.1 mg IV ASDIRECTED PRN PRN Reason: decreased respiratory rate Naloxone HCl (Narcan) 0.1 mg IVPUSH Q2M PRN PRN Reason: Respiratory Distress Neostigmine Methylsulfate (Neostigmine) Confirm Administered Dose 5 mg .ROUTE .STK-MED ONE Stop: 12/15/16 08:53 Verify Fent Patch 0 each TOP BID [facility] Last Admin: 12/26/16 16:14 Dose: Not Given Ondansetron HCl (Zofran) 4 mg IV Q4H PRN PRN Reason: Nausea/Vomiting Last Admin: 12/20/16 02:41 Dose: 4 mg Ondansetron HCl (Zofran) Confirm Administered Dose 4 mg .ROUTE .STK-MED ONE Stop: 12/15/16 08:53 Oxycodone/Acetaminophen (Percocet 325-5 Mg) 1 - 2 tab PO Q4H PRN PRN Reason: PAIN Last Admin: 12/22/16 07:42 Dose: 2 tab Pantoprazole Sodium (Protonix Iv) 40 mg IVPUSH DAILY [facility] Last Admin: 12/21/16 10:08 Dose: 40 mg Pantoprazole Sodium (Protonix) 40 mg PO ACBREAKFAST [facility] Last Admin: 12/22/16 07:31 Dose: 40 mg Propofol (Diprivan 20 Ml) Confirm Administered Dose 200 mg .ROUTE .STK-MED ONE Stop: 12/15/16 08:53 Propofol (Diprivan 20 Ml) Confirm Administered Dose 200 mg .ROUTE .STK-MED ONE Stop: 12/17/16 07:10 Rocuronium [place] (Zemuron) Confirm Administered Dose 50 mg .ROUTE .STK-MED ONE Stop: 12/15/16 08:53 Sodium Chloride (Saline Flush) 10 ml FLUSH ASDIRECTED PRN PRN Reason: Keep Vein Open Sodium Chloride (Saline Flush) 10 ml FLUSH ASDIRECTED PRN PRN Reason: Keep Vein Open Stop: 12/22/16 23:00 Last Admin: 12/22/16 11:27 Dose: 10 ml Succinylcholine Chloride (Succinylcholine In Ns Pf) Confirm Administered Dose 200 mg .ROUTE .STK-MED ONE Stop: 12/15/16 08:53 Succinylcholine Chloride (Succinylcholine In Ns Pf) Confirm Administered Dose 200 mg .ROUTE .STK-MED ONE Stop: 12/15/16 11:10 - Exam Quality Assessment: supplemental oxygen General: alert, oriented, cooperative, no acute distress - Problem List Review Problem List Initiated/Reviewed/Updated: Yes - My Orders Last 24 Hours: My Active Orders 12/28/16 21:00 Dexamethasone 4 mg PO BID - Plan Plan:: ASSESSMENT AND PLAN - 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 He has failed to improve significantly following surgery and patient with incentive family wants to proceed with comfort cares only. -Liquid morphine and lorazepam as needed for comfort -Continue Decadron 4 mg by mouth twice a day Ileus -NG tube -N.p.o. status Hypoxia- Family has requested that we move to comfort cares only given his underlying metastatic squamous cell carcinoma. -Continue supplemental oxygen Impaired hearing, acute on chronic - patient has known metastatic disease to the brain, significant hearing impairment is felt to be secondary to his current brain tumor. -Continue current therapy with dexamethasone Palliative Care-per patient's previously expressed wishes family has requested that we move to comfort cares only
[2016-12-28] MEDS: Dexamethasone 4 MG Tab PO SCH (21:44)
[2016-12-29] MEDS: Morphine 10 MG/0.5 ML Oral Syringe PO PRN ×9 (04:23→21:36)
[2016-12-29] MEDS: Albuterol/Ipratropium 3.0-0.5 MG/3 ML Neb Soln INH SCH ×4 (07:19→21:25)
[2016-12-29] MEDS: Dexamethasone 4 MG Tab PO SCH ×2 (10:20→21:36)
--- NOTE | 2016-12-29 12:27 | PCM.PN ---
- General Info Date of Service: 12/29/16 Functional Status: Reports: pain controlled - Review of Systems Systems Review Comment:: Patient has remained fairly stable since yesterday, reports that pain control has been adequate. Family also confirms that they feel the patient's pain has been well controlled with current management. - Patient Data Vitals - most recent: Last Vital Signs Temp 98.5 F 12/29/16 08:32 Pulse 106 H 12/29/16 10:49 Resp 12 12/29/16 08:32 BP 122/75 12/29/16 08:32 Pulse Ox 95 12/29/16 08:32 Weight - most recent: 146 lb 13.246 oz I&O - last 24 hours: Intake & Output 12/28/16 12/29/16 12/29/16 22:59 06:59 14:59 Intake Total 30 Output Total 375 280 Balance -345 -280 Med Orders - Current: Current Medications Albuterol/Ipratropium (Duoneb 3.0-0.5 Mg/3 Ml) 3 ml INH QIDRT FANG Last Admin: 12/29/16 10:49 Dose: 3 ml Albuterol/Ipratropium (Duoneb 3.0-0.5 Mg/3 Ml) 3 ml INH ASDIRECTED PRN PRN Reason: RESP DISTRESS Last Admin: 12/25/16 05:00 Dose: 3 ml Dexamethasone (Dexamethasone) 4 mg PO BID FANG Last Admin: 12/29/16 10:20 Dose: 4 mg Diphenhydramine HCl (Benadryl) 25 mg IVPUSH Q6H PRN PRN Reason: Itching Last Admin: 12/25/16 23:33 Dose: 25 mg Lorazepam (Ativan Oral Concentrate 1mg/0.5 Ml U/D) 0.5 mg PO Q2H PRN PRN Reason: Anxiety Last Admin: 12/26/16 02:20 Dose: 0.5 mg Morphine Sulfate (Morphine 10 Mg/0.5 Ml Oral Syringe) 5 - 10 mg PO Q1H PRN PRN Reason: Pain Last Admin: 12/29/16 09:35 Dose: 10 mg Ondansetron HCl (Zofran Odt) 4 mg PO Q4H PRN PRN Reason: Nausea/Vomiting Last Admin: 12/25/16 20:50 Dose: 4 mg Phenol (Phenaseptic Liquid) 0 ml PO Q1H PRN PRN Reason: Sore Throat Last Admin: 12/27/16 00:22 Dose: 1 spray Discontinued Medications Bisacodyl (Dulcolax) 20 mg PO BID [facility] Last Admin: 12/21/16 08:28 Dose: Not Given Bupivacaine HCl (Marcaine 0.5%) Confirm Administered Dose 50 ml .ROUTE .STK-MED ONE Stop: 12/17/16 06:48 Last Admin: 12/17/16 07:34 Dose: 15 ml Carbamide Perox/Anhydrous Glycerin (Debrox 6.5% Otic Soln) 0 ml EARBOTH ONETIME ONE Stop: 12/21/16 10:31 Last Admin: 12/21/16 11:40 Dose: 4 drop Dexamethasone (Dexamethasone) 4 mg IVPUSH Q6H [facility] Last Admin: 12/15/16 14:29 Dose: 4 mg Dexamethasone (Dexamethasone) Confirm Administered Dose 4 mg .ROUTE .STK-MED ONE Stop: 12/15/16 08:53 Dexamethasone (Dexamethasone) 4 mg IVPUSH Q6H [facility] Last Admin: 12/21/16 02:16 Dose: 4 mg Dexamethasone (Dexamethasone) 4 mg PO Q6H [facility] Last Admin: 12/22/16 14:04 Dose: Not Given Dexamethasone (Dexamethasone) 4 mg IVPUSH Q12H [facility] Last Admin: 12/28/16 08:24 Dose: 4 mg Enoxaparin Sodium (Lovenox) 40 mg SUBCUT DAILY [facility] Last Admin: 12/15/16 14:29 Dose: 40 mg Enoxaparin Sodium (Lovenox) 40 mg SUBCUT DAILY [facility] Last Admin: 12/24/16 08:41 Dose: 40 mg Fentanyl (Duragesic) 25 mcg TRDERM Q72H [facility] Last Admin: 12/24/16 09:31 Dose: 25 mcg Fentanyl (Sublimaze) Confirm Administered Dose 250 mcg .ROUTE .STK-MED ONE Stop: 12/15/16 08:52 Fentanyl (Sublimaze) Confirm Administered Dose 100 mcg .ROUTE .STK-MED ONE Stop: 12/15/16 11:08 Fentanyl (Sublimaze) 100 mcg IVPUSH ONETIME ONE Stop: 12/15/16 11:59 Last Admin: 12/15/16 12:08 Dose: 100 mcg Fentanyl (Sublimaze) Confirm Administered Dose 100 mcg .ROUTE .STK-MED ONE Stop: 12/17/16 07:10 Furosemide (Lasix) 40 mg IVPUSH NOW ONE Stop: 12/24/16 13:16 Last Admin: 12/24/16 13:50 Dose: 40 mg Furosemide (Lasix) 40 mg IVPUSH ONETIME ONE Stop: 12/25/16 08:01 Last Admin: 12/25/16 07:33 Dose: 40 mg Glycopyrrolate () Confirm Administered Dose 1 mg .ROUTE .STK-MED ONE Stop: 12/15/16 08:53 Hydromorphone HCl (Dilaudid Title Agent 15 Mg In Ns 30 Ml) 0 mg IV ASDIRECTED PRN; Protocol PRN Reason: BOWL SANDER PAIN CONTROL Last Admin: 12/20/16 12:55 Dose: 15 mg Hydromorphone HCl (Dilaudid) 1 mg IVPUSH Q2H PRN PRN Reason: Pain (severe 7-10) Stop: 12/22/16 11:30 Last Admin: 12/22/16 10:31 Dose: 1 mg Hydromorphone HCl (Dilaudid Title Agent 15 Mg In Ns 30 Ml) 0 mg IV ASDIRECTED PRN; Protocol PRN Reason: Pain Last Admin: 12/24/16 21:55 Dose: 15 mg Hydroxyzine HCl (Vistaril) 50 mg IM ONETIME ONE Stop: 12/15/16 12:18 Last Admin: 12/15/16 12:24 Dose: 50 mg Hydroxyzine HCl (Vistaril) 75 mg IM ONETIME ONE Stop: 12/22/16 01:55 Last Admin: 12/22/16 02:18 Dose: 75 mg Lactated Ringer's (Ringers, Lactated) 1,000 mls @ 125 mls/hr IV ASDIRECTED FANG Last Admin: 12/15/16 07:46 Dose: 125 mls/hr Lactated Ringer's (Ringers, Lactated) 1,000 mls @ 333 mls/hr IV ASDIRECTED FANG Stop: 12/14/16 12:16 Last Admin: 12/14/16 09:25 Dose: 333 mls/hr Cefoxitin Sodium 2 gm/ Sodium (Chloride) 50 mls @ 100 mls/hr IV ONETIME ONE Stop: 12/15/16 09:29 Last Admin: 12/15/16 08:53 Dose: 100 mls/hr Lactated Ringer's (Ringers, Lactated) Confirm Administered Dose 1,000 mls @ as directed .ROUTE .STK-MED ONE Stop: 12/15/16 09:15 Dextrose/Lactated Ringer's (Dextrose 5%-Lactated Ringers) 1,000 mls @ 200 mls/ hr IV ASDIRECTED [facility] Last Admin: 12/17/16 05:12 Dose: 200 mls/hr Cefoxitin Sodium 2 gm/ Sodium (Chloride) 50 mls @ 100 mls/hr IV Q6H FANG Stop: 12/17/16 12:29 Last Admin: 12/17/16 12:13 Dose: 100 mls/hr Lactated Ringer's (Ringers, Lactated) 500 mls @ 500 mls/hr IV .BOLUS [facility] Last Admin: 12/15/16 23:14 Dose: 500 mls/hr Lactated Ringer's (Ringers, Lactated) 500 mls @ 500 mls/hr IV BOLUS ONE Stop: 12/16/16 00:02 Last Admin: 12/15/16 23:42 Dose: Not Given Lactated Ringer's (Ringers, Lactated) 500 mls @ 500 mls/hr IV BOLUS ONE Stop: 12/16/16 03:02 Last Admin: 12/16/16 02:05 Dose: 500 mls/hr Lactated Ringer's (Ringers, Lactated) 500 mls @ 500 mls/hr IV BOLUS ONE Stop: 12/16/16 06:41 Last Admin: 12/16/16 05:45 Dose: 500 mls/hr Potassium Phosphate 15 mmole/ (Sodium Chloride) 255 mls @ 125 mls/hr IV Q2H [facility] Stop: 12/16/16 13:59 Last Admin: 12/16/16 13:10 Dose: 125 mls/hr Lactated Ringer's (Ringers, Lactated) 500 mls @ 500 mls/hr IV .BOLUS ONE Stop: 12/16/16 15:29 Last Admin: 12/16/16 15:07 Dose: 500 mls/hr Acetaminophen (Ofirmev) Confirm Administered Dose 100 mls @ as directed IV .STK- MED ONE Stop: 12/17/16 07:45 Dextrose/Lactated Ringer's (Dextrose 5%-Lactated Ringers) 1,000 mls @ 100 mls/ hr IV ASDIRECTED [facility] Last Admin: 12/21/16 00:55 Dose: 100 mls/hr Albumin Human 12.5 gm/ Premix 50 mls @ 25 mls/hr IV Q24H [facility] Stop: 12/21/16 10:59 Last Admin: 12/21/16 08:32 Dose: 25 mls/hr Albumin Human 12.5 gm/ Premix 50 mls @ 25 mls/hr IV Q24H [facility] Stop: 12/21/16 12:59 Last Admin: 12/21/16 10:08 Dose: 25 mls/hr Albumin Human 12.5 gm/ Premix 50 mls @ 25 mls/hr IV Q24H [facility] Stop: 12/21/16 14:59 Last Admin: 12/21/16 13:03 Dose: 25 mls/hr Albumin Human 12.5 gm/ Premix 50 mls @ 25 mls/hr IV Q24H [facility] Stop: 12/21/16 16:59 Last Admin: 12/21/16 15:07 Dose: 25 mls/hr Magnesium Sulfate 2 gm/ Premix 50 mls @ 25 mls/hr IV Q6H [facility] Stop: 12/20/16 05:59 Last Admin: 12/20/16 04:07 Dose: 25 mls/hr Potassium Phosphate 20 mmole/ (Sodium Chloride) 256.6667 mls @ 86 mls/hr IV ONETIME ONE Stop: 12/17/16 12:59 Last Admin: 12/17/16 12:48 Dose: 86 mls/hr Potassium Phosphate 25 mmole/ (Sodium Chloride) 508.3333 mls @ 125 mls/hr IV ONETIME ONE Stop: 12/17/16 22:03 Last Admin: 12/17/16 18:21 Dose: 125 mls/hr Acetaminophen 1,000 mg/ Premix 100 mls @ 400 mls/hr IV Q6H [facility] Stop: 12/18/16 04:14 Last Admin: 12/18/16 03:28 Dose: 400 mls/hr Lidocaine HCl (Xylocaine-Mpf 1%) Confirm Administered Dose 2 mls @ as directed .ROUTE .STK-MED ONE Stop: 12/18/16 20:43 Sodium Chloride (Normal Saline) 1,000 mls @ 75 mls/hr IV ASDIRECTED FANG Last Admin: 12/22/16 11:45 Dose: 75 mls/hr Sodium Chloride (Normal Saline) 100 mls @ 3.5 mls/sec IV ASDIRECTED FANG Stop: 12/22/16 23:00 Last Admin: 12/22/16 11:27 Dose: 3.5 mls/sec Dextrose/Lactated Ringer's (Dextrose 5%-Lactated Ringers) 1,000 mls @ 125 mls/ hr IV ASDIRECTED [facility] Last Admin: 12/23/16 10:11 Dose: 75 mls/hr Sodium Chloride (Normal Saline) 500 mls @ 500 mls/hr IV .BOLUS ONE Stop: 12/22/16 21:54 Last Admin: 12/22/16 21:07 Dose: 500 mls/hr Sodium Chloride (Normal Saline) 1,000 mls @ 999 mls/hr IV .BOLUS ONE Stop: 12/22/16 23:01 Last Admin: 12/22/16 22:27 Dose: 999 mls/hr Sodium Chloride (Normal Saline) 500 mls @ 500 mls/hr IV .BOLUS ONE Stop: 12/23/16 06:07 Last Admin: 12/23/16 05:10 Dose: 500 mls/hr Linezolid 600 mg/ Premix 300 mls @ 300 mls/hr IV Q12H [facility] Last Admin: 12/25/16 08:17 Dose: 300 mls/hr Meropenem 500 mg/ Sodium (Chloride) 50 mls @ 100 mls/hr IV Q6H [facility] Last Admin: 12/25/16 07:40 Dose: 100 mls/hr Lactated Ringer's (Ringers, Lactated) 1,000 mls @ 500 mls/hr IV ASDIRECTED [facility] Stop: 12/23/16 19:48 Last Admin: 12/23/16 18:38 Dose: 500 mls/hr Lactated Ringer's (Ringers, Lactated) 1,000 mls @ 25 mls/hr IV ASDIRECTED [facility] Last Admin: 12/24/16 08:52 Dose: 125 mls/hr Albumin Human 12.5 gm/ Premix 50 mls @ 25 mls/hr IV Q24H [facility] Stop: 12/26/16 10:59 Last Admin: 12/26/16 16:14 Dose: Not Given Albumin Human 12.5 gm/ Premix 50 mls @ 25 mls/hr IV Q24H [facility] Stop: 12/26/16 12:59 Last Admin: 12/24/16 16:44 Dose: 25 mls/hr Albumin Human 12.5 gm/ Premix 50 mls @ 25 mls/hr IV Q24H [facility] Stop: 12/26/16 14:59 Last Admin: 12/24/16 21:57 Dose: 25 mls/hr Albumin Human 12.5 gm/ Premix 50 mls @ 25 mls/hr IV Q24H [facility] Stop: 12/26/16 16:59 Last Admin: 12/24/16 22:19 Dose: 25 mls/hr Erythromycin Lactobionate 125 (mg/ Sodium Chloride) 100 mls @ 100 mls/hr IV Q8H [facility] Last Admin: 12/25/16 01:16 Dose: 100 mls/hr Calcium Gluconate 2 gm/ Sodium (Chloride) 120 mls @ 100 mls/hr IV ONETIME ONE Stop: 12/24/16 11:03 Last Admin: 12/24/16 11:14 Dose: 100 mls/hr Calcium Gluconate 2 gm/ Sodium (Chloride) 120 mls @ 100 mls/hr IV ONETIME ONE Stop: 12/25/16 10:11 Last Admin: 12/26/16 16:14 Dose: Not Given Ibuprofen (Motrin) 400 mg PO QID [facility] Last Admin: 12/22/16 17:13 Dose: Not Given Iopamidol (Isovue-300 (61%)) 99 ml IV . DIRECTED PRN PRN Reason: RADIOLOGY EXAM Stop: 12/23/16 10:52 Last Admin: 12/22/16 11:26 Dose: 100 ml Ketamine HCl (Ketalar) Confirm Administered Dose 500 mg .ROUTE .STK-MED ONE Stop: 12/15/16 10:10 Labetalol HCl (Normodyne) 20 mg IVPUSH Q4H PRN PRN Reason: blood pressure Last Admin: 12/25/16 03:07 Dose: 20 mg Lidocaine HCl (Xylocaine 2% Jelly) 10 ml MUCMEM ONETIME ONE Stop: 12/23/16 05:57 Last Admin: 12/23/16 06:03 Dose: 10 ml Lidocaine/Epinephrine (Xylocaine 1% With Epinephrine 1:100,000) Confirm Administered Dose 50 ml .ROUTE .STK-MED ONE Stop: 12/17/16 06:48 Last Admin: 12/17/16 07:34 Dose: 15 ml Magnesium Citrate (Citrate Of Magnesia) 287 ml PO ONETIME ONE Stop: 12/19/16 09:01 Last Admin: 12/19/16 08:51 Dose: 287 ml Magnesium Citrate (Citrate Of Magnesia) 287 ml PO ONETIME ONE Stop: 12/20/16 09:01 Last Admin: 12/20/16 08:35 Dose: 287 ml Meclizine HCl (Antivert) 25 mg PO Q6H PRN PRN Reason: Dizziness Last Admin: 12/16/16 15:07 Dose: 25 mg Meperidine HCl (Demerol) 75 mg IM ONETIME ONE Stop: 12/22/16 01:56 Last Admin: 12/22/16 02:17 Dose: 75 mg Meropenem (Merrem) Confirm Administered Dose 500 mg .ROUTE .STK-MED ONE Stop: 12/15/16 10:51 Last Admin: 12/16/16 09:16 Dose: 500 mg Meropenem (Merrem) Confirm Administered Dose 500 mg .ROUTE .STK-MED ONE Stop: 12/17/16 06:48 Last Admin: 12/17/16 07:30 Dose: 500 mg Methylprednisolone Sodium Succinate (Solu-Medrol) 60 mg IVPUSH ONETIME ONE Stop: 12/15/16 09:01 Last Admin: 12/15/16 08:51 Dose: 60 mg Midazolam HCl (Versed 1 Mg/Ml) Confirm Administered Dose 2 mg .ROUTE .STK-MED ONE Stop: 12/15/16 08:52 Midazolam HCl (Versed 1 Mg/Ml) Confirm Administered Dose 2 mg .ROUTE .STK-MED ONE Stop: 12/17/16 07:10 Naloxone HCl (Narcan) 0.1 mg IV ASDIRECTED PRN PRN Reason: decreased respiratory rate Naloxone HCl (Narcan) 0.1 mg IVPUSH Q2M PRN PRN Reason: Respiratory Distress Neostigmine Methylsulfate (Neostigmine) Confirm Administered Dose 5 mg .ROUTE .STK-MED ONE Stop: 12/15/16 08:53 Verify Fent Patch 0 each TOP BID FANG Last Admin: 12/26/16 16:14 Dose: Not Given Ondansetron HCl (Zofran) 4 mg IV Q4H PRN PRN Reason: Nausea/Vomiting Last Admin: 12/20/16 02:41 Dose: 4 mg Ondansetron HCl (Zofran) Confirm Administered Dose 4 mg .ROUTE .STK-MED ONE Stop: 12/15/16 08:53 Oxycodone/Acetaminophen (Percocet 325-5 Mg) 1 - 2 tab PO Q4H PRN PRN Reason: PAIN Last Admin: 12/22/16 07:42 Dose: 2 tab Pantoprazole Sodium (Protonix Iv) 40 mg IVPUSH DAILY FANG Last Admin: 12/21/16 10:08 Dose: 40 mg Pantoprazole Sodium (Protonix) 40 mg PO ACBREAKFAST FANG Last Admin: 12/22/16 07:31 Dose: 40 mg Propofol (Diprivan 20 Ml) Confirm Administered Dose 200 mg .ROUTE .STK-MED ONE Stop: 12/15/16 08:53 Propofol (Diprivan 20 Ml) Confirm Administered Dose 200 mg .ROUTE .STK-MED ONE Stop: 12/17/16 07:10 Rocuronium [place] (Zemuron) Confirm Administered Dose 50 mg .ROUTE .STK-MED ONE Stop: 12/15/16 08:53 Sodium Chloride (Saline Flush) 10 ml FLUSH ASDIRECTED PRN PRN Reason: Keep Vein Open Sodium Chloride (Saline Flush) 10 ml FLUSH ASDIRECTED PRN PRN Reason: Keep Vein Open Stop: 12/22/16 23:00 Last Admin: 12/22/16 11:27 Dose: 10 ml Succinylcholine Chloride (Succinylcholine In Ns Pf) Confirm Administered Dose 200 mg .ROUTE .STK-MED ONE Stop: 12/15/16 08:53 Succinylcholine Chloride (Succinylcholine In Ns Pf) Confirm Administered Dose 200 mg .ROUTE .STK-MED ONE Stop: 12/15/16 11:10 - Exam General: alert, cooperative, no acute distress Lungs: Clear to auscultation, Normal respiratory effort Cardiovascular: Regular Rhythm, No Murmurs, Tachycardia Abdomen: bowel sounds present, soft - Problem List Review Problem List Initiated/Reviewed/Updated: Yes - My Orders Last 24 Hours: My Active Orders 12/28/16 21:00 Dexamethasone 4 mg PO BID - Plan Plan:: ASSESSMENT AND PLAN - 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 He has failed to improve significantly following surgery, family and patient have requested comfort cares only -Liquid morphine and lorazepam as needed for comfort -Continue Decadron 4 mg by mouth twice a day Ileus-tolerated the NG tube out now for a period of 48 hours -Clear liquid diet Hypoxia- Family has requested that we move to comfort cares only given his underlying metastatic squamous cell carcinoma. -Continue supplemental oxygen Impaired hearing, acute on chronic - patient has known metastatic disease to the brain, significant hearing impairment is felt to be secondary to his current brain tumor. -Continue current therapy with dexamethasone Palliative Care-per patient's previously expressed wishes family has requested that we move to comfort cares only
[2016-12-29] MEDS: LORazepam ORAL Concentrate 1MG/0.5ML U/D PO PRN (21:36)
[2016-12-30] MEDS: Morphine 10 MG/0.5 ML Oral Syringe PO PRN ×17 (01:43→22:04)
[2016-12-30] MEDS: LORazepam ORAL Concentrate 1MG/0.5ML U/D PO PRN ×10 (03:53→21:34)
[2016-12-30 07:21] VITALS: BP 152/83
[2016-12-30] MEDS: Albuterol/Ipratropium 3.0-0.5 MG/3 ML Neb Soln INH SCH ×4 (07:41→21:10)
--- NOTE | 2016-12-30 09:03 | PCM.PN ---
- General Info Date of Service: 12/30/16 - Review of Systems Systems Review Comment:: Austin is very lethargic this morning and does not participate in conversation. Family reports that his pain has been well-controlled. They noticed that he has not been very interactive and this started overnight. Heart rate has been slowly climbing. He has been using morphine for pain and lorazepam intermittently for anxiety. No vomiting. - Patient Data Vitals - most recent: Last Vital Signs Temp 36.9 C 12/30/16 07:19 Pulse 114 H 12/30/16 07:46 Resp 16 12/30/16 07:19 BP 152/83 H 12/30/16 07:19 Pulse Ox 96 12/30/16 07:19 Weight - most recent: 66.6 kg I&O - last 24 hours: Intake & Output 12/29/16 12/30/16 12/30/16 22:59 06:59 14:59 Output Total 350 475 Balance -350 -475 Ed Results last 24 hrs: Microbiology 12/30/16 08:08 CIARA Preparation - Final Other - Mouth Med Orders - Current: Current Medications Albuterol/Ipratropium (Duoneb 3.0-0.5 Mg/3 Ml) 3 ml INH QIDRT [facility] Last Admin: 12/30/16 07:41 Dose: 3 ml Albuterol/Ipratropium (Duoneb 3.0-0.5 Mg/3 Ml) 3 ml INH ASDIRECTED PRN PRN Reason: RESP DISTRESS Last Admin: 12/25/16 05:00 Dose: 3 ml Lidocaine HCl 30 ml/ Al Hydroxide/Mg Hydroxide 30 ml/Diphenhydramine HCl 75 mg 0 ml PO QID FANG Dexamethasone (Dexamethasone) 4 mg PO BID [facility] Last Admin: 12/29/16 21:36 Dose: 4 mg Diphenhydramine HCl (Benadryl) 25 mg IVPUSH Q6H PRN PRN Reason: Itching Last Admin: 12/25/16 23:33 Dose: 25 mg Lorazepam (Ativan Oral Concentrate 1mg/0.5 Ml U/D) 0.5 mg PO Q2H PRN PRN Reason: Anxiety Last Admin: 12/30/16 07:16 Dose: 0.5 mg Morphine Sulfate (Morphine 10 Mg/0.5 Ml Oral Syringe) 5 - 10 mg PO Q1H PRN PRN Reason: Pain Last Admin: 12/30/16 07:16 Dose: 10 mg Nystatin (Mycostatin) 5 ml PO QID [facility] Ondansetron HCl (Zofran Odt) 4 mg PO Q4H PRN PRN Reason: Nausea/Vomiting Last Admin: 12/25/16 20:50 Dose: 4 mg Phenol (Phenaseptic Liquid) 0 ml PO Q1H PRN PRN Reason: Sore Throat Last Admin: 12/27/16 00:22 Dose: 1 spray Discontinued Medications Bisacodyl (Dulcolax) 20 mg PO BID [facility] Last Admin: 12/21/16 08:28 Dose: Not Given Bupivacaine HCl (Marcaine 0.5%) Confirm Administered Dose 50 ml .ROUTE .STK-MED ONE Stop: 12/17/16 06:48 Last Admin: 12/17/16 07:34 Dose: 15 ml Carbamide Perox/Anhydrous Glycerin (Debrox 6.5% Otic Soln) 0 ml EARBOTH ONETIME ONE Stop: 12/21/16 10:31 Last Admin: 12/21/16 11:40 Dose: 4 drop Dexamethasone (Dexamethasone) 4 mg IVPUSH Q6H [facility] Last Admin: 12/15/16 14:29 Dose: 4 mg Dexamethasone (Dexamethasone) Confirm Administered Dose 4 mg .ROUTE .STK-MED ONE Stop: 12/15/16 08:53 Dexamethasone (Dexamethasone) 4 mg IVPUSH Q6H [facility] Last Admin: 12/21/16 02:16 Dose: 4 mg Dexamethasone (Dexamethasone) 4 mg PO Q6H [facility] Last Admin: 12/22/16 14:04 Dose: Not Given Dexamethasone (Dexamethasone) 4 mg IVPUSH Q12H [facility] Last Admin: 12/28/16 08:24 Dose: 4 mg Enoxaparin Sodium (Lovenox) 40 mg SUBCUT DAILY [facility] Last Admin: 12/15/16 14:29 Dose: 40 mg Enoxaparin Sodium (Lovenox) 40 mg SUBCUT DAILY [facility] Last Admin: 12/24/16 08:41 Dose: 40 mg Fentanyl (Duragesic) 25 mcg TRDERM Q72H [facility] Last Admin: 12/24/16 09:31 Dose: 25 mcg Fentanyl (Sublimaze) Confirm Administered Dose 250 mcg .ROUTE .STK-MED ONE Stop: 12/15/16 08:52 Fentanyl (Sublimaze) Confirm Administered Dose 100 mcg .ROUTE .STK-MED ONE Stop: 12/15/16 11:08 Fentanyl (Sublimaze) 100 mcg IVPUSH ONETIME ONE Stop: 12/15/16 11:59 Last Admin: 12/15/16 12:08 Dose: 100 mcg Fentanyl (Sublimaze) Confirm Administered Dose 100 mcg .ROUTE .STK-MED ONE Stop: 12/17/16 07:10 Furosemide (Lasix) 40 mg IVPUSH NOW ONE Stop: 12/24/16 13:16 Last Admin: 12/24/16 13:50 Dose: 40 mg Furosemide (Lasix) 40 mg IVPUSH ONETIME ONE Stop: 12/25/16 08:01 Last Admin: 12/25/16 07:33 Dose: 40 mg Glycopyrrolate () Confirm Administered Dose 1 mg .ROUTE .STK-MED ONE Stop: 12/15/16 08:53 Hydromorphone HCl (Dilaudid Formwork Carpenter 15 Mg In Ns 30 Ml) 0 mg IV ASDIRECTED PRN; Protocol PRN Reason: [employer] PAIN CONTROL Last Admin: 12/20/16 12:55 Dose: 15 mg Hydromorphone HCl (Dilaudid) 1 mg IVPUSH Q2H PRN PRN Reason: Pain (severe 7-10) Stop: 12/22/16 11:30 Last Admin: 12/22/16 10:31 Dose: 1 mg Hydromorphone HCl (Dilaudid Formwork Carpenter 15 Mg In Ns 30 Ml) 0 mg IV ASDIRECTED PRN; Protocol PRN Reason: Pain Last Admin: 12/24/16 21:55 Dose: 15 mg Hydroxyzine HCl (Vistaril) 50 mg IM ONETIME ONE Stop: 12/15/16 12:18 Last Admin: 12/15/16 12:24 Dose: 50 mg Hydroxyzine HCl (Vistaril) 75 mg IM ONETIME ONE Stop: 12/22/16 01:55 Last Admin: 12/22/16 02:18 Dose: 75 mg Lactated Ringer's (Ringers, Lactated) 1,000 mls @ 125 mls/hr IV ASDIRECTED FANG Last Admin: 12/15/16 07:46 Dose: 125 mls/hr Lactated Ringer's (Ringers, Lactated) 1,000 mls @ 333 mls/hr IV ASDIRECTED [facility] Stop: 12/14/16 12:16 Last Admin: 12/14/16 09:25 Dose: 333 mls/hr Cefoxitin Sodium 2 gm/ Sodium (Chloride) 50 mls @ 100 mls/hr IV ONETIME ONE Stop: 12/15/16 09:29 Last Admin: 12/15/16 08:53 Dose: 100 mls/hr Lactated Ringer's (Ringers, Lactated) Confirm Administered Dose 1,000 mls @ as directed .ROUTE .STK-MED ONE Stop: 12/15/16 09:15 Dextrose/Lactated Ringer's (Dextrose 5%-Lactated Ringers) 1,000 mls @ 200 mls/ hr IV ASDIRECTED [facility] Last Admin: 12/17/16 05:12 Dose: 200 mls/hr Cefoxitin Sodium 2 gm/ Sodium (Chloride) 50 mls @ 100 mls/hr IV Q6H [facility] Stop: 12/17/16 12:29 Last Admin: 12/17/16 12:13 Dose: 100 mls/hr Lactated Ringer's (Ringers, Lactated) 500 mls @ 500 mls/hr IV .BOLUS [facility] Last Admin: 12/15/16 23:14 Dose: 500 mls/hr Lactated Ringer's (Ringers, Lactated) 500 mls @ 500 mls/hr IV BOLUS ONE Stop: 12/16/16 00:02 Last Admin: 12/15/16 23:42 Dose: Not Given Lactated Ringer's (Ringers, Lactated) 500 mls @ 500 mls/hr IV BOLUS ONE Stop: 12/16/16 03:02 Last Admin: 12/16/16 02:05 Dose: 500 mls/hr Lactated Ringer's (Ringers, Lactated) 500 mls @ 500 mls/hr IV BOLUS ONE Stop: 12/16/16 06:41 Last Admin: 12/16/16 05:45 Dose: 500 mls/hr Potassium Phosphate 15 mmole/ (Sodium Chloride) 255 mls @ 125 mls/hr IV Q2H [facility] Stop: 12/16/16 13:59 Last Admin: 12/16/16 13:10 Dose: 125 mls/hr Lactated Ringer's (Ringers, Lactated) 500 mls @ 500 mls/hr IV .BOLUS ONE Stop: 12/16/16 15:29 Last Admin: 12/16/16 15:07 Dose: 500 mls/hr Acetaminophen (Ofirmev) Confirm Administered Dose 100 mls @ as directed IV .STK- MED ONE Stop: 12/17/16 07:45 Dextrose/Lactated Ringer's (Dextrose 5%-Lactated Ringers) 1,000 mls @ 100 mls/ hr IV ASDIRECTED [facility] Last Admin: 12/21/16 00:55 Dose: 100 mls/hr Albumin Human 12.5 gm/ Premix 50 mls @ 25 mls/hr IV Q24H [facility] Stop: 12/21/16 10:59 Last Admin: 12/21/16 08:32 Dose: 25 mls/hr Albumin Human 12.5 gm/ Premix 50 mls @ 25 mls/hr IV Q24H [facility] Stop: 12/21/16 12:59 Last Admin: 12/21/16 10:08 Dose: 25 mls/hr Albumin Human 12.5 gm/ Premix 50 mls @ 25 mls/hr IV Q24H [facility] Stop: 12/21/16 14:59 Last Admin: 12/21/16 13:03 Dose: 25 mls/hr Albumin Human 12.5 gm/ Premix 50 mls @ 25 mls/hr IV Q24H [facility] Stop: 12/21/16 16:59 Last Admin: 12/21/16 15:07 Dose: 25 mls/hr Magnesium Sulfate 2 gm/ Premix 50 mls @ 25 mls/hr IV Q6H [facility] Stop: 12/20/16 05:59 Last Admin: 12/20/16 04:07 Dose: 25 mls/hr Potassium Phosphate 20 mmole/ (Sodium Chloride) 256.6667 mls @ 86 mls/hr IV ONETIME ONE Stop: 12/17/16 12:59 Last Admin: 12/17/16 12:48 Dose: 86 mls/hr Potassium Phosphate 25 mmole/ (Sodium Chloride) 508.3333 mls @ 125 mls/hr IV ONETIME ONE Stop: 12/17/16 22:03 Last Admin: 12/17/16 18:21 Dose: 125 mls/hr Acetaminophen 1,000 mg/ Premix 100 mls @ 400 mls/hr IV Q6H [facility] Stop: 12/18/16 04:14 Last Admin: 12/18/16 03:28 Dose: 400 mls/hr Lidocaine HCl (Xylocaine-Mpf 1%) Confirm Administered Dose 2 mls @ as directed .ROUTE .STK-MED ONE Stop: 12/18/16 20:43 Sodium Chloride (Normal Saline) 1,000 mls @ 75 mls/hr IV ASDIRECTED [facility] Last Admin: 12/22/16 11:45 Dose: 75 mls/hr Sodium Chloride (Normal Saline) 100 mls @ 3.5 mls/sec IV ASDIRECTED [facility] Stop: 12/22/16 23:00 Last Admin: 12/22/16 11:27 Dose: 3.5 mls/sec Dextrose/Lactated Ringer's (Dextrose 5%-Lactated Ringers) 1,000 mls @ 125 mls/ hr IV ASDIRECTED [facility] Last Admin: 12/23/16 10:11 Dose: 75 mls/hr Sodium Chloride (Normal Saline) 500 mls @ 500 mls/hr IV .BOLUS ONE Stop: 12/22/16 21:54 Last Admin: 12/22/16 21:07 Dose: 500 mls/hr Sodium Chloride (Normal Saline) 1,000 mls @ 999 mls/hr IV .BOLUS ONE Stop: 12/22/16 23:01 Last Admin: 12/22/16 22:27 Dose: 999 mls/hr Sodium Chloride (Normal Saline) 500 mls @ 500 mls/hr IV .BOLUS ONE Stop: 12/23/16 06:07 Last Admin: 12/23/16 05:10 Dose: 500 mls/hr Linezolid 600 mg/ Premix 300 mls @ 300 mls/hr IV Q12H [facility] Last Admin: 12/25/16 08:17 Dose: 300 mls/hr Meropenem 500 mg/ Sodium (Chloride) 50 mls @ 100 mls/hr IV Q6H [facility] Last Admin: 12/25/16 07:40 Dose: 100 mls/hr Lactated Ringer's (Ringers, Lactated) 1,000 mls @ 500 mls/hr IV ASDIRECTED [facility] Stop: 12/23/16 19:48 Last Admin: 12/23/16 18:38 Dose: 500 mls/hr Lactated Ringer's (Ringers, Lactated) 1,000 mls @ 25 mls/hr IV ASDIRECTED [facility] Last Admin: 12/24/16 08:52 Dose: 125 mls/hr Albumin Human 12.5 gm/ Premix 50 mls @ 25 mls/hr IV Q24H [facility] Stop: 12/26/16 10:59 Last Admin: 12/26/16 16:14 Dose: Not Given Albumin Human 12.5 gm/ Premix 50 mls @ 25 mls/hr IV Q24H [facility] Stop: 12/26/16 12:59 Last Admin: 12/24/16 16:44 Dose: 25 mls/hr Albumin Human 12.5 gm/ Premix 50 mls @ 25 mls/hr IV Q24H [facility] Stop: 12/26/16 14:59 Last Admin: 12/24/16 21:57 Dose: 25 mls/hr Albumin Human 12.5 gm/ Premix 50 mls @ 25 mls/hr IV Q24H [facility] Stop: 12/26/16 16:59 Last Admin: 12/24/16 22:19 Dose: 25 mls/hr Erythromycin Lactobionate 125 (mg/ Sodium Chloride) 100 mls @ 100 mls/hr IV Q8H [facility] Last Admin: 12/25/16 01:16 Dose: 100 mls/hr Calcium Gluconate 2 gm/ Sodium (Chloride) 120 mls @ 100 mls/hr IV ONETIME ONE Stop: 12/24/16 11:03 Last Admin: 12/24/16 11:14 Dose: 100 mls/hr Calcium Gluconate 2 gm/ Sodium (Chloride) 120 mls @ 100 mls/hr IV ONETIME ONE Stop: 12/25/16 10:11 Last Admin: 12/26/16 16:14 Dose: Not Given Ibuprofen (Motrin) 400 mg PO QID [facility] Last Admin: 12/22/16 17:13 Dose: Not Given Iopamidol (Isovue-300 (61%)) 99 ml IV . DIRECTED PRN PRN Reason: RADIOLOGY EXAM Stop: 12/23/16 10:52 Last Admin: 12/22/16 11:26 Dose: 100 ml Ketamine HCl (Ketalar) Confirm Administered Dose 500 mg .ROUTE .STK-MED ONE Stop: 12/15/16 10:10 Labetalol HCl (Normodyne) 20 mg IVPUSH Q4H PRN PRN Reason: blood pressure Last Admin: 12/25/16 03:07 Dose: 20 mg Lidocaine HCl (Xylocaine 2% Jelly) 10 ml MUCMEM ONETIME ONE Stop: 12/23/16 05:57 Last Admin: 12/23/16 06:03 Dose: 10 ml Lidocaine/Epinephrine (Xylocaine 1% With Epinephrine 1:100,000) Confirm Administered Dose 50 ml .ROUTE .STK-MED ONE Stop: 12/17/16 06:48 Last Admin: 12/17/16 07:34 Dose: 15 ml Magnesium Citrate (Citrate Of Magnesia) 287 ml PO ONETIME ONE Stop: 12/19/16 09:01 Last Admin: 12/19/16 08:51 Dose: 287 ml Magnesium Citrate (Citrate Of Magnesia) 287 ml PO ONETIME ONE Stop: 12/20/16 09:01 Last Admin: 12/20/16 08:35 Dose: 287 ml Meclizine HCl (Antivert) 25 mg PO Q6H PRN PRN Reason: Dizziness Last Admin: 12/16/16 15:07 Dose: 25 mg Meperidine HCl (Demerol) 75 mg IM ONETIME ONE Stop: 12/22/16 01:56 Last Admin: 12/22/16 02:17 Dose: 75 mg Meropenem (Merrem) Confirm Administered Dose 500 mg .ROUTE .STK-MED ONE Stop: 12/15/16 10:51 Last Admin: 12/16/16 09:16 Dose: 500 mg Meropenem (Merrem) Confirm Administered Dose 500 mg .ROUTE .STK-MED ONE Stop: 12/17/16 06:48 Last Admin: 12/17/16 07:30 Dose: 500 mg Methylprednisolone Sodium Succinate (Solu-Medrol) 60 mg IVPUSH ONETIME ONE Stop: 12/15/16 09:01 Last Admin: 12/15/16 08:51 Dose: 60 mg Midazolam HCl (Versed 1 Mg/Ml) Confirm Administered Dose 2 mg .ROUTE .STK-MED ONE Stop: 12/15/16 08:52 Midazolam HCl (Versed 1 Mg/Ml) Confirm Administered Dose 2 mg .ROUTE .STK-MED ONE Stop: 12/17/16 07:10 Naloxone HCl (Narcan) 0.1 mg IV ASDIRECTED PRN PRN Reason: decreased respiratory rate Naloxone HCl (Narcan) 0.1 mg IVPUSH Q2M PRN PRN Reason: Respiratory Distress Neostigmine Methylsulfate (Neostigmine) Confirm Administered Dose 5 mg .ROUTE .STK-MED ONE Stop: 12/15/16 08:53 Verify Fent Patch 0 each TOP BID [facility] Last Admin: 12/26/16 16:14 Dose: Not Given Ondansetron HCl (Zofran) 4 mg IV Q4H PRN PRN Reason: Nausea/Vomiting Last Admin: 12/20/16 02:41 Dose: 4 mg Ondansetron HCl (Zofran) Confirm Administered Dose 4 mg .ROUTE .STK-MED ONE Stop: 12/15/16 08:53 Oxycodone/Acetaminophen (Percocet 325-5 Mg) 1 - 2 tab PO Q4H PRN PRN Reason: PAIN Last Admin: 12/22/16 07:42 Dose: 2 tab Pantoprazole Sodium (Protonix Iv) 40 mg IVPUSH DAILY [facility] Last Admin: 12/21/16 10:08 Dose: 40 mg Pantoprazole Sodium (Protonix) 40 mg PO ACBREAKFAST [facility] Last Admin: 12/22/16 07:31 Dose: 40 mg Propofol (Diprivan 20 Ml) Confirm Administered Dose 200 mg .ROUTE .STK-MED ONE Stop: 12/15/16 08:53 Propofol (Diprivan 20 Ml) Confirm Administered Dose 200 mg .ROUTE .STK-MED ONE Stop: 12/17/16 07:10 Rocuronium Jackson (Zemuron) Confirm Administered Dose 50 mg .ROUTE .STK-MED ONE Stop: 12/15/16 08:53 Sodium Chloride (Saline Flush) 10 ml FLUSH ASDIRECTED PRN PRN Reason: Keep Vein Open Sodium Chloride (Saline Flush) 10 ml FLUSH ASDIRECTED PRN PRN Reason: Keep Vein Open Stop: 12/22/16 23:00 Last Admin: 12/22/16 11:27 Dose: 10 ml Succinylcholine Chloride (Succinylcholine In Ns Pf) Confirm Administered Dose 200 mg .ROUTE .STK-MED ONE Stop: 12/15/16 08:53 Succinylcholine Chloride (Succinylcholine In Ns Pf) Confirm Administered Dose 200 mg .ROUTE .STK-MED ONE Stop: 12/15/16 11:10 - Exam Quality Assessment: supplemental oxygen General: no acute distress. No: alert Neck: supple Lungs: Normal respiratory effort Abdomen: distension (mild) Extremities: other (no mottling) - Problem List Review Problem List Initiated/Reviewed/Updated: Yes - My Orders Last 24 Hours: My Active Orders 12/30/16 10:00 Lidocaine 2% [Xylocaine 2% Viscous] 30 ml Alum Hydrox/Mag Hydrox/Simeth [Mag-Al Plus] 30 ml diphenhydrAMINE [Benadryl] 75 mg 30 ml PO QID - Plan Plan:: ASSESSMENT AND PLAN - Metastatic squamous cell carcinoma - he has known widespread metastatic disease including brain metastasis. He has failed to improve significantly following surgery, family and patient have requested comfort cares only. He appears to have started the dying process and is extremely lethargic today. Pain seems to be fairly well controlled. -Liquid morphine and lorazepam as needed for comfort -Discontinue dexamethasone since he is no longer able to swallow pills Ileus - no vomiting since the NG tube was removed. -Clear liquid diet as tolerated Hypoxia - Family has requested that we move to comfort cares only given his underlying metastatic squamous cell carcinoma. -Continue supplemental oxygen Impaired hearing, acute on chronic - patient has known metastatic disease to the brain, significant hearing impairment is felt to be secondary to his current brain tumor. -Discontinue dexamethasone as above Palliative Care-per patient's previously expressed wishes family has requested that we move to comfort cares only Disposition - at this point I believe Austin is in the dying process and transferred to home or the residential would cause extreme pain in be too difficult for him. I would recommend that he remained hospitalized to maximize his comfort and expect that he will pass in the near future. Chandler Garcia M.D.
[2016-12-30] MEDS: Nystatin Susp 100,000 Unit/ML 5 ML UD Cup PO SCH ×3 (10:08→21:10)
[2016-12-30] MEDS ORDERED: Bisacodyl 10 MG Supp RECTAL PRN (10:44)
--- NOTE | 2016-12-30 11:12 | PN ---
DATE OF SERVICE: 12/30/2016 SUBJECTIVE: Austin is planning to be discharged when a place is available where the [facility] has a contract with. His vital signs have been stable. Oral intake 30 mL was documented. Urinary output was 825 of a dark urine, and recorded breakfast, lunch, and dinner yesterday was zero. OBJECTIVE: GENERAL: Austin is a 61-year-old male. VITAL SIGNS: TPR 98.5, 114, 16. Blood pressure 152/83. HEENT: Mouth and lips are pink, shiny. There are some small minimal white patches noted. HEART: Regular rate and rhythm. LUNGS: Decreased breath sounds bilaterally. ABDOMEN: Negative. ASSESSMENT: 1. Exploratory laparotomy with small bowel resection, strictureplasty, and mesh placement decompression of small bowel, 12/15/2016. 2. Delayed primary closure, 12/17/2016. 3. Postoperative ileus, resolved. 4. Metastasis of cancer to brain. 5. Thrush. PLAN: 1. Discontinue TYLER drain. 2. Remove marilee and place benzoin with Steri-Strips. 3. Nystatin swish and swallow 5 mL q.i.d. 4. Good pulmonary toilet encouraged. 5. We will evaluate p.r.n. or in a.m. Noa Gorman PA-C /[id number]
[2016-12-30] MEDS: Lidocaine 2% 30 ML, Alum Hydrox/Mag Hydrox/Simeth 30 ML, diphenhydrAMINE 75 MG PO SCH ×6 (11:33→16:22)
[2016-12-30] MEDS: Dexamethasone 4 MG Tab PO SCH (16:42)
[2016-12-30] MEDS ORDERED: Atropine Sulfate Ophth 2 ML Drops SL PRN (17:20)
[2016-12-30] MEDS ORDERED: Morphine 10 MG/0.5 ML Oral Syringe PO PRN (17:45)
--- NOTE | 2016-12-31 08:13 | PCM.DCSUM1 ---
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 - Discharge Data Discharge Date: 12/30/16 Discharge Disposition: 20 Preliminary Cause of *Q: Other_Special Instruction (metastatic squamous cell cancer) Condition: - Patient Summary/Data Operative Procedure(s) Performed: 1. Exploratory laparotomy with small bowel resection for malignant obstruction, stricturoplasty, tube decompression and mesh placement. 2. delayed primary closure Consults: Dr. Armenta with general surgery Hospital Course: Austin presented to the emergency room with progressive abdominal pain and distention. Workup in the emergency room was consistent with a small bowel obstruction based on CT imaging. He was admitted to the hospital after an NG tube was placed. He was provided with pain control and IV fluids. The surgical team was consulted the morning after admission. Over the next couple of days he had ongoing evidence for obstruction with no evidence to suggest that things were improving. He was taken to the operating room on December 15 for exploratory laparotomy. During this procedure there were several areas of metastatic disease noted and these were resected as well as they were able to be. He had a small bowel resection as well as a stricturoplasty and areas of metastatic disease. He also had a tube decompression of the small intestine and mesh placement at the completion of the procedure. Perioperative course was uneventful. His postoperative course was complicated by an ileus and prolonged return of bowel function. Otherwise he was relatively stable and then progressing fairly well. He did have some difficulty with her a worsening of his hearing. There was some improvement with cerumen removal but his hearing did not return to baseline. We elected to not further images brain since the likely cause was his brain metastases and there was no way to improve the situation. On December 22 he developed tachycardia and again worsening abdominal pain and distention. X-ray was suggestive of obstruction versus ileus and an NG tube was placed. IV fluids were restarted and medications changed to intravenous as they were able to be. Over the next 24 hours he did not show significant improvement despite the interventions. On December 24 he developed increasing respiratory rate and increased work of breathing. Chest x-ray was suggestive of patchy infiltrates and this prompted a CT scan. He had moderate bilateral pleural effusions as well as some patchy infiltrates. With his respiratory decline and ongoing tachycardia he was transferred to the intensive care unit. Unfortunately despite the initiation of empiric broad-spectrum antibiotics his condition declined further. he continued to have difficulty with his recurrent obstruction which was thought to be related to additional foci of malignancy. He also had difficulty with progressive respiratory decline. Discussions were held with his family and the patient about most appropriate course of action from here. They felt that this was not consistent with his previously expressed wishes and he was transitioned to comfort care. He was transferred upstairs after the aggressive interventions were discontinued.Morphine and lorazepam were utilized to control pain and anxiety respectively. Over the next couple of days he initially showed some improvement with increased alertness and some improvement in his abdominal pain and distention. He had ongoing difficulty with the distention and did not pass gas or have bowel movements. Over the weekend his condition was stable but Friday night he developed progressive somnolence followed by obtundation. Throughout the day on December 30 he was unresponsive. He appeared to have an increase in his pain as the day went along and we increased morphine and lorazepam. He passed peacefully with his family at his bedside at approximately 10 PM on December 30. The cause of is his metastatic squamous cell cancer with thoracic and abdominal metastases leading to recurrent bowel obstructions and respiratory compromise, respectively. - Discharge Plan Home Medications: Home Meds Acetaminophen/oxyCODONE [Percocet 325-5 MG] 1 tab PO Q4H PRN 12/13/16 [History] Dexamethasone 1 tab PO QID 12/13/16 [History] Docusate Sodium [Colace] 100 mg PO BID 12/13/16 [History] Dronabinol [Marinol] 2.5 mg PO BIDAC 12/13/16 [History] Omeprazole 1 tab PO BEDTIME 12/13/16 [History] Ondansetron [Zofran Odt] 1 tab PO Q8H PRN 12/13/16 [History] Prochlorperazine Maleate [Compazine] 1 tab PO Q6H PRN 12/13/16 [History] guaiFENesin 5 ml PO Q4H PRN 12/13/16 [History] guaiFENesin/Codeine Phosphate [Guaifenesin AC Cough Syrup] 5 ml PO TID PRN 12/13 [History] Referrals: PCP,None [Primary Care Provider] - Richie Armenta MD [Physician] - - Discharge Summary/Plan Comment DC Time >30 min.: No (25 - document prep) - Patient Data Vitals - Most Recent: Last Vital Signs Temp 36.9 C 12/30/16 07:19 Pulse 114 H 12/30/16 11:11 Resp 16 12/30/16 07:19 BP 152/83 H 12/30/16 07:19 Pulse Ox 96 12/30/16 07:19 Weight - Most Recent: 66.6 kg I&O - Last 24 hours: Intake & Output 12/30/16 12/31/16 12/31/16 22:59 06:59 14:59 Output Total 250 Balance -250 EMILY Results - Last 24 hrs: Microbiology 12/30/16 08:08 CIARA Preparation - Final Other - Mouth Med Orders - Current: Current Medications Discontinued Medications Albuterol/Ipratropium (Duoneb 3.0-0.5 Mg/3 Ml) 3 ml INH QIDRT FANG Last Admin: 12/30/16 21:10 Dose: Not Given Albuterol/Ipratropium (Duoneb 3.0-0.5 Mg/3 Ml) 3 ml INH ASDIRECTED PRN PRN Reason: RESP DISTRESS Last Admin: 12/25/16 05:00 Dose: 3 ml Atropine Sulfate (Atropine 1%) 0 ml SL Q4H PRN PRN Reason: secretions Last Admin: 12/30/16 17:34 Dose: 4 drop Bisacodyl (Dulcolax) 20 mg PO BID [facility] Last Admin: 12/21/16 08:28 Dose: Not Given Bisacodyl (Dulcolax) 10 mg RECTAL DAILY PRN PRN Reason: Constipation Last Admin: 12/30/16 11:37 Dose: 10 mg Bupivacaine HCl (Marcaine 0.5%) Confirm Administered Dose 50 ml .ROUTE .STK-MED ONE Stop: 12/17/16 06:48 Last Admin: 12/17/16 07:34 Dose: 15 ml Carbamide Perox/Anhydrous Glycerin (Debrox 6.5% Otic Soln) 0 ml EARBOTH ONETIME ONE Stop: 12/21/16 10:31 Last Admin: 12/21/16 11:40 Dose: 4 drop Lidocaine HCl 30 ml/ Al Hydroxide/Mg Hydroxide 30 ml/Diphenhydramine HCl 75 mg 0 ml PO QID [facility] Last Admin: 12/30/16 16:22 Dose: 30 ml Dexamethasone (Dexamethasone) 4 mg IVPUSH Q6H [facility] Last Admin: 12/15/16 14:29 Dose: 4 mg Dexamethasone (Dexamethasone) Confirm Administered Dose 4 mg .ROUTE .STK-MED ONE Stop: 12/15/16 08:53 Dexamethasone (Dexamethasone) 4 mg IVPUSH Q6H [facility] Last Admin: 12/21/16 02:16 Dose: 4 mg Dexamethasone (Dexamethasone) 4 mg PO Q6H [facility] Last Admin: 12/22/16 14:04 Dose: Not Given Dexamethasone (Dexamethasone) 4 mg IVPUSH Q12H [facility] Last Admin: 12/28/16 08:24 Dose: 4 mg Dexamethasone (Dexamethasone) 4 mg PO BID [facility] Last Admin: 12/30/16 16:42 Dose: Not Given Diphenhydramine HCl (Benadryl) 25 mg IVPUSH Q6H PRN PRN Reason: Itching Last Admin: 12/25/16 23:33 Dose: 25 mg Enoxaparin Sodium (Lovenox) 40 mg SUBCUT DAILY [facility] Last Admin: 12/15/16 14:29 Dose: 40 mg Enoxaparin Sodium (Lovenox) 40 mg SUBCUT DAILY [facility] Last Admin: 12/24/16 08:41 Dose: 40 mg Fentanyl (Duragesic) 25 mcg TRDERM Q72H [facility] Last Admin: 12/24/16 09:31 Dose: 25 mcg Fentanyl (Sublimaze) Confirm Administered Dose 250 mcg .ROUTE .ST-MED ONE Stop: 12/15/16 08:52 Fentanyl (Sublimaze) Confirm Administered Dose 100 mcg .ROUTE .STK-MED ONE Stop: 12/15/16 11:08 Fentanyl (Sublimaze) 100 mcg IVPUSH ONETIME ONE Stop: 12/15/16 11:59 Last Admin: 12/15/16 12:08 Dose: 100 mcg Fentanyl (Sublimaze) Confirm Administered Dose 100 mcg .ROUTE .STK-MED ONE Stop: 12/17/16 07:10 Furosemide (Lasix) 40 mg IVPUSH NOW ONE Stop: 12/24/16 13:16 Last Admin: 12/24/16 13:50 Dose: 40 mg Furosemide (Lasix) 40 mg IVPUSH ONETIME ONE Stop: 12/25/16 08:01 Last Admin: 12/25/16 07:33 Dose: 40 mg Glycopyrrolate () Confirm Administered Dose 1 mg .ROUTE .STK-MED ONE Stop: 12/15/16 08:53 Hydromorphone HCl (Dilaudid Metal Bending Machine Operator 15 Mg In Ns 30 Ml) 0 mg IV ASDIRECTED PRN; Protocol PRN Reason: [employer] PAIN CONTROL Last Admin: 12/20/16 12:55 Dose: 15 mg Hydromorphone HCl (Dilaudid) 1 mg IVPUSH Q2H PRN PRN Reason: Pain (severe 7-10) Stop: 12/22/16 11:30 Last Admin: 12/22/16 10:31 Dose: 1 mg Hydromorphone HCl (Dilaudid Metal Bending Machine Operator 15 Mg In Ns 30 Ml) 0 mg IV ASDIRECTED PRN; Protocol PRN Reason: Pain Last Admin: 12/24/16 21:55 Dose: 15 mg Hydroxyzine HCl (Vistaril) 50 mg IM ONETIME ONE Stop: 12/15/16 12:18 Last Admin: 12/15/16 12:24 Dose: 50 mg Hydroxyzine HCl (Vistaril) 75 mg IM ONETIME ONE Stop: 12/22/16 01:55 Last Admin: 12/22/16 02:18 Dose: 75 mg Lactated Ringer's (Ringers, Lactated) 1,000 mls @ 125 mls/hr IV ASDIRECTED [facility] Last Admin: 12/15/16 07:46 Dose: 125 mls/hr Lactated Ringer's (Ringers, Lactated) 1,000 mls @ 333 mls/hr IV ASDIRECTED [facility] Stop: 12/14/16 12:16 Last Admin: 12/14/16 09:25 Dose: 333 mls/hr Cefoxitin Sodium 2 gm/ Sodium (Chloride) 50 mls @ 100 mls/hr IV ONETIME ONE Stop: 12/15/16 09:29 Last Admin: 12/15/16 08:53 Dose: 100 mls/hr Lactated Ringer's (Ringers, Lactated) Confirm Administered Dose 1,000 mls @ as directed .ROUTE .STK-MED ONE Stop: 12/15/16 09:15 Dextrose/Lactated Ringer's (Dextrose 5%-Lactated Ringers) 1,000 mls @ 200 mls/ hr IV ASDIRECTED [facility] Last Admin: 12/17/16 05:12 Dose: 200 mls/hr Cefoxitin Sodium 2 gm/ Sodium (Chloride) 50 mls @ 100 mls/hr IV Q6H [facility] Stop: 12/17/16 12:29 Last Admin: 12/17/16 12:13 Dose: 100 mls/hr Lactated Ringer's (Ringers, Lactated) 500 mls @ 500 mls/hr IV .BOLUS [facility] Last Admin: 12/15/16 23:14 Dose: 500 mls/hr Lactated Ringer's (Ringers, Lactated) 500 mls @ 500 mls/hr IV BOLUS ONE Stop: 12/16/16 00:02 Last Admin: 12/15/16 23:42 Dose: Not Given Lactated Ringer's (Ringers, Lactated) 500 mls @ 500 mls/hr IV BOLUS ONE Stop: 12/16/16 03:02 Last Admin: 12/16/16 02:05 Dose: 500 mls/hr Lactated Ringer's (Ringers, Lactated) 500 mls @ 500 mls/hr IV BOLUS ONE Stop: 12/16/16 06:41 Last Admin: 12/16/16 05:45 Dose: 500 mls/hr Potassium Phosphate 15 mmole/ (Sodium Chloride) 255 mls @ 125 mls/hr IV Q2H [facility] Stop: 12/16/16 13:59 Last Admin: 12/16/16 13:10 Dose: 125 mls/hr Lactated Ringer's (Ringers, Lactated) 500 mls @ 500 mls/hr IV .BOLUS ONE Stop: 12/16/16 15:29 Last Admin: 12/16/16 15:07 Dose: 500 mls/hr Acetaminophen (Ofirmev) Confirm Administered Dose 100 mls @ as directed IV .STK- MED ONE Stop: 12/17/16 07:45 Dextrose/Lactated Ringer's (Dextrose 5%-Lactated Ringers) 1,000 mls @ 100 mls/ hr IV ASDIRECTED [facility] Last Admin: 12/21/16 00:55 Dose: 100 mls/hr Albumin Human 12.5 gm/ Premix 50 mls @ 25 mls/hr IV Q24H [facility] Stop: 12/21/16 10:59 Last Admin: 12/21/16 08:32 Dose: 25 mls/hr Albumin Human 12.5 gm/ Premix 50 mls @ 25 mls/hr IV Q24H [facility] Stop: 12/21/16 12:59 Last Admin: 12/21/16 10:08 Dose: 25 mls/hr Albumin Human 12.5 gm/ Premix 50 mls @ 25 mls/hr IV Q24H [facility] Stop: 12/21/16 14:59 Last Admin: 12/21/16 13:03 Dose: 25 mls/hr Albumin Human 12.5 gm/ Premix 50 mls @ 25 mls/hr IV Q24H [facility] Stop: 12/21/16 16:59 Last Admin: 12/21/16 15:07 Dose: 25 mls/hr Magnesium Sulfate 2 gm/ Premix 50 mls @ 25 mls/hr IV Q6H [facility] Stop: 12/20/16 05:59 Last Admin: 12/20/16 04:07 Dose: 25 mls/hr Potassium Phosphate 20 mmole/ (Sodium Chloride) 256.6667 mls @ 86 mls/hr IV ONETIME ONE Stop: 12/17/16 12:59 Last Admin: 12/17/16 12:48 Dose: 86 mls/hr Potassium Phosphate 25 mmole/ (Sodium Chloride) 508.3333 mls @ 125 mls/hr IV ONETIME ONE Stop: 12/17/16 22:03 Last Admin: 12/17/16 18:21 Dose: 125 mls/hr Acetaminophen 1,000 mg/ Premix 100 mls @ 400 mls/hr IV Q6H [facility] Stop: 12/18/16 04:14 Last Admin: 12/18/16 03:28 Dose: 400 mls/hr Lidocaine HCl (Xylocaine-Mpf 1%) Confirm Administered Dose 2 mls @ as directed .ROUTE .STK-MED ONE Stop: 12/18/16 20:43 Sodium Chloride (Normal Saline) 1,000 mls @ 75 mls/hr IV ASDIRECTED [facility] Last Admin: 12/22/16 11:45 Dose: 75 mls/hr Sodium Chloride (Normal Saline) 100 mls @ 3.5 mls/sec IV ASDIRECTED [facility] Stop: 12/22/16 23:00 Last Admin: 12/22/16 11:27 Dose: 3.5 mls/sec Dextrose/Lactated Ringer's (Dextrose 5%-Lactated Ringers) 1,000 mls @ 125 mls/ hr IV ASDIRECTED [facility] Last Admin: 12/23/16 10:11 Dose: 75 mls/hr Sodium Chloride (Normal Saline) 500 mls @ 500 mls/hr IV .BOLUS ONE Stop: 12/22/16 21:54 Last Admin: 12/22/16 21:07 Dose: 500 mls/hr Sodium Chloride (Normal Saline) 1,000 mls @ 999 mls/hr IV .BOLUS ONE Stop: 12/22/16 23:01 Last Admin: 12/22/16 22:27 Dose: 999 mls/hr Sodium Chloride (Normal Saline) 500 mls @ 500 mls/hr IV .BOLUS ONE Stop: 12/23/16 06:07 Last Admin: 12/23/16 05:10 Dose: 500 mls/hr Linezolid 600 mg/ Premix 300 mls @ 300 mls/hr IV Q12H [facility] Last Admin: 12/25/16 08:17 Dose: 300 mls/hr Meropenem 500 mg/ Sodium (Chloride) 50 mls @ 100 mls/hr IV Q6H [facility] Last Admin: 12/25/16 07:40 Dose: 100 mls/hr Lactated Ringer's (Ringers, Lactated) 1,000 mls @ 500 mls/hr IV ASDIRECTED [facility] Stop: 12/23/16 19:48 Last Admin: 12/23/16 18:38 Dose: 500 mls/hr Lactated Ringer's (Ringers, Lactated) 1,000 mls @ 25 mls/hr IV ASDIRECTED [facility] Last Admin: 12/24/16 08:52 Dose: 125 mls/hr Albumin Human 12.5 gm/ Premix 50 mls @ 25 mls/hr IV Q24H [facility] Stop: 12/26/16 10:59 Last Admin: 12/26/16 16:14 Dose: Not Given Albumin Human 12.5 gm/ Premix 50 mls @ 25 mls/hr IV Q24H [facility] Stop: 12/26/16 12:59 Last Admin: 12/24/16 16:44 Dose: 25 mls/hr Albumin Human 12.5 gm/ Premix 50 mls @ 25 mls/hr IV Q24H [facility] Stop: 12/26/16 14:59 Last Admin: 12/24/16 21:57 Dose: 25 mls/hr Albumin Human 12.5 gm/ Premix 50 mls @ 25 mls/hr IV Q24H [facility] Stop: 12/26/16 16:59 Last Admin: 12/24/16 22:19 Dose: 25 mls/hr Erythromycin Lactobionate 125 (mg/ Sodium Chloride) 100 mls @ 100 mls/hr IV Q8H [facility] Last Admin: 12/25/16 01:16 Dose: 100 mls/hr Calcium Gluconate 2 gm/ Sodium (Chloride) 120 mls @ 100 mls/hr IV ONETIME ONE Stop: 12/24/16 11:03 Last Admin: 12/24/16 11:14 Dose: 100 mls/hr Calcium Gluconate 2 gm/ Sodium (Chloride) 120 mls @ 100 mls/hr IV ONETIME ONE Stop: 12/25/16 10:11 Last Admin: 12/26/16 16:14 Dose: Not Given Ibuprofen (Motrin) 400 mg PO QID [facility] Last Admin: 12/22/16 17:13 Dose: Not Given Iopamidol (Isovue-300 (61%)) 99 ml IV . DIRECTED PRN PRN Reason: RADIOLOGY EXAM Stop: 12/23/16 10:52 Last Admin: 12/22/16 11:26 Dose: 100 ml Ketamine HCl (Ketalar) Confirm Administered Dose 500 mg .ROUTE .STK-MED ONE Stop: 12/15/16 10:10 Labetalol HCl (Normodyne) 20 mg IVPUSH Q4H PRN PRN Reason: blood pressure Last Admin: 12/25/16 03:07 Dose: 20 mg Lidocaine HCl (Xylocaine 2% Jelly) 10 ml MUCMEM ONETIME ONE Stop: 12/23/16 05:57 Last Admin: 12/23/16 06:03 Dose: 10 ml Lidocaine/Epinephrine (Xylocaine 1% With Epinephrine 1:100,000) Confirm Administered Dose 50 ml .ROUTE .STK-MED ONE Stop: 12/17/16 06:48 Last Admin: 12/17/16 07:34 Dose: 15 ml Lorazepam (Ativan Oral Concentrate 1mg/0.5 Ml U/D) 0.5 mg PO Q2H PRN PRN Reason: Anxiety Last Admin: 12/30/16 16:17 Dose: 0.5 mg Lorazepam (Ativan Oral Concentrate 1mg/0.5 Ml U/D) 0.5 - 1 mg PO Q1H PRN PRN Reason: Anxiety Last Admin: 12/30/16 21:34 Dose: 1 mg Magnesium Citrate (Citrate Of Magnesia) 287 ml PO ONETIME ONE Stop: 12/19/16 09:01 Last Admin: 12/19/16 08:51 Dose: 287 ml Magnesium Citrate (Citrate Of Magnesia) 287 ml PO ONETIME ONE Stop: 12/20/16 09:01 Last Admin: 12/20/16 08:35 Dose: 287 ml Meclizine HCl (Antivert) 25 mg PO Q6H PRN PRN Reason: Dizziness Last Admin: 12/16/16 15:07 Dose: 25 mg Meperidine HCl (Demerol) 75 mg IM ONETIME ONE Stop: 12/22/16 01:56 Last Admin: 12/22/16 02:17 Dose: 75 mg Meropenem (Merrem) Confirm Administered Dose 500 mg .ROUTE .STK-MED ONE Stop: 12/15/16 10:51 Last Admin: 12/16/16 09:16 Dose: 500 mg Meropenem (Merrem) Confirm Administered Dose 500 mg .ROUTE .STK-MED ONE Stop: 12/17/16 06:48 Last Admin: 12/17/16 07:30 Dose: 500 mg Methylprednisolone Sodium Succinate (Solu-Medrol) 60 mg IVPUSH ONETIME ONE Stop: 12/15/16 09:01 Last Admin: 12/15/16 08:51 Dose: 60 mg Midazolam HCl (Versed 1 Mg/Ml) Confirm Administered Dose 2 mg .ROUTE .STK-MED ONE Stop: 12/15/16 08:52 Midazolam HCl (Versed 1 Mg/Ml) Confirm Administered Dose 2 mg .ROUTE .STK-MED ONE Stop: 12/17/16 07:10 Morphine Sulfate (Morphine 10 Mg/0.5 Ml Oral Syringe) 5 - 10 mg PO Q1H PRN PRN Reason: Pain Last Admin: 12/30/16 17:20 Dose: 10 mg Morphine Sulfate (Morphine 10 Mg/0.5 Ml Oral Syringe) 10 - 20 mg PO Q1H PRN PRN Reason: Pain Morphine Sulfate (Morphine 10 Mg/0.5 Ml Oral Syringe) 10 - 20 mg PO Q30M PRN PRN Reason: Pain Last Admin: 12/30/16 22:04 Dose: 20 mg Naloxone HCl (Narcan) 0.1 mg IV ASDIRECTED PRN PRN Reason: decreased respiratory rate Naloxone HCl (Narcan) 0.1 mg IVPUSH Q2M PRN PRN Reason: Respiratory Distress Neostigmine Methylsulfate (Neostigmine) Confirm Administered Dose 5 mg .ROUTE .STK-MED ONE Stop: 12/15/16 08:53 Verify Fent Patch 0 each TOP BID [facility] Last Admin: 12/26/16 16:14 Dose: Not Given Nystatin (Mycostatin) 5 ml PO QID [facility] Last Admin: 12/30/16 21:10 Dose: Not Given Ondansetron HCl (Zofran) 4 mg IV Q4H PRN PRN Reason: Nausea/Vomiting Last Admin: 12/20/16 02:41 Dose: 4 mg Ondansetron HCl (Zofran) Confirm Administered Dose 4 mg .ROUTE .STK-MED ONE Stop: 12/15/16 08:53 Ondansetron HCl (Zofran Odt) 4 mg PO Q4H PRN PRN Reason: Nausea/Vomiting Last Admin: 12/25/16 20:50 Dose: 4 mg Oxycodone/Acetaminophen (Percocet 325-5 Mg) 1 - 2 tab PO Q4H PRN PRN Reason: PAIN Last Admin: 12/22/16 07:42 Dose: 2 tab Pantoprazole Sodium (Protonix Iv) 40 mg IVPUSH DAILY [facility] Last Admin: 12/21/16 10:08 Dose: 40 mg Pantoprazole Sodium (Protonix) 40 mg PO ACBREAKFAST [facility] Last Admin: 12/22/16 07:31 Dose: 40 mg Phenol (Phenaseptic Liquid) 0 ml PO Q1H PRN PRN Reason: Sore Throat Last Admin: 12/27/16 00:22 Dose: 1 spray Propofol (Diprivan 20 Ml) Confirm Administered Dose 200 mg .ROUTE .STK-MED ONE Stop: 12/15/16 08:53 Propofol (Diprivan 20 Ml) Confirm Administered Dose 200 mg .ROUTE .STK-MED ONE Stop: 12/17/16 07:10 Rocuronium Veguita (Zemuron) Confirm Administered Dose 50 mg .ROUTE .STK-MED ONE Stop: 12/15/16 08:53 Sodium Chloride (Saline Flush) 10 ml FLUSH ASDIRECTED PRN PRN Reason: Keep Vein Open Sodium Chloride (Saline Flush) 10 ml FLUSH ASDIRECTED PRN PRN Reason: Keep Vein Open Stop: 12/22/16 23:00 Last Admin: 12/22/16 11:27 Dose: 10 ml Succinylcholine Chloride (Succinylcholine In Ns Pf) Confirm Administered Dose 200 mg .ROUTE .STK-MED ONE Stop: 12/15/16 08:53 Succinylcholine Chloride (Succinylcholine In Ns Pf) Confirm Administered Dose 200 mg .ROUTE .ST-MED ONE Stop: 12/15/16 11:10 *Q Meaningful Use (DIS) - VTE *Q VTE Criteria *Q: - Stroke *Q Stroke Criteria *Q: - AMI *Q AMI Criteria *Q:
== END 2016-12-31 02:28 | disposition expired | DRG 827 ==
LOC: JP.ED 13:25 → JP.MS 18:48 → JP.2SS 12-15 13:31 → JP.MS 12-21 12:59 → JP.ICU 12-23 17:25 → JP.2SS 12-26 15:30
PROVIDERS: ADMIT Hospitalist; ATTEND Hospitalist
PROC: 0DBV0ZX Excision of Mesentery, Open Approach, Diagnostic (ICD-10-PCS; principal; 2016-12-15)
PROC: 0DBB0ZX Excision of Ileum, Open Approach, Diagnostic (ICD-10-PCS; principal; 2016-12-15)
PROC: 0DB80ZX Excision of Small Intestine, Open Approach, Diagnostic (ICD-10-PCS; principal; 2016-12-15)
PROC: 0DBA0ZX Excision of Jejunum, Open Approach, Diagnostic (ICD-10-PCS; principal; 2016-12-15)
PROC: 0W9G0ZX Drainage of Peritoneal Cavity, Open Approach, Diagnostic (ICD-10-PCS; principal; 2016-12-15)
PROC: 0WBF0ZX Excision of Abdominal Wall, Open Approach, Diagnostic (ICD-10-PCS; principal; 2016-12-15)
PROC: 3E0M05Z Introduction of Adhesion Barrier into Peritoneal Cavity, Open Approach (ICD-10-PCS; principal; 2016-12-15)
PROC: 0D988ZZ Drainage of Small Intestine, Via Natural or Artificial Opening Endoscopic (ICD-10-PCS; principal; 2016-12-15)
PROC: 0WQF0ZZ Repair Abdominal Wall, Open Approach (ICD-10-PCS; 2016-12-17)
DX: C80.1 Malignant (primary) neoplasm, unspecified (principal); K56.69 Other intestinal obstruction; K91.3 Postprocedural intestinal obstruction; B37.0 Candidal stomatitis; J90 Pleural effusion, not elsewhere classified; C79.31 Secondary malignant neoplasm of brain; C79.89 Secondary malignant neoplasm of other specified sites; Z51.5 Encounter for palliative care; Z92.21 Personal history of antineoplastic chemotherapy; Z66 Do not resuscitate; Z92.3 Personal history of irradiation; Z87.891 Personal history of nicotine dependence; H54.7 Unspecified visual loss; H61.23 Impacted cerumen, bilateral; R09.02 Hypoxemia; R59.0 Localized enlarged lymph nodes; J44.9 Chronic obstructive pulmonary disease, unspecified; R33.9 Retention of urine, unspecified; R55 Syncope and collapse; R91.8 Other nonspecific abnormal finding of lung field
CPT/HCPCS: 36415; 71010; 71010-26; 71250; 71250-26; 74000; 74000-26; 74020; 74020-26; 74176; 74177; 80048; 80053; 81001; 82330; 82378; 83605; 83735; 83880; 84100; 84484; 85025; 85027; 86316; 87040; 87077; 87186; 87220; 87493; 88112; 88302; 88305; 88307; 88309; 88342; 93005; 93010; 94640-76; 94667; 94762; 96365; 96366; 96375; 99222-AI; 99231; 99232; 99238; 99284-25; 99285; A4217; A9270-GY; C9113; J0131; J0610; J0694; J1100; J1170; J1200; J1364; J1650; J1940; J2020; J2175; J2185; J2250; J2405; J2704; J2930; J3010; J3410; J3475; J3490; J7030; J7040; J7042; J7050; J7120; J7620; J8540; P9047; Q9967